=== PATIENT | female | born 1990 | race African-American/Black ===

== ENCOUNTER 2016-07-16 15:16 | Emergency (ER) | payer OTHER ==
[~2016-07-16] VITALS: Ht 167.6 cm; Wt 82.6 kg
[~2016-07-16 15:16] MED LIST: BENZ200C39 PO; GABA-585 PO; HYDR10SY8 PO; MECL12.52 PO; NAPR375T3 PO; OMEP20CA5 PO
[2016-07-16 15:55] VITALS: BP 138/90
[2016-07-16 17:23] LABS: NEG OBC UR NEG; POS OBC UR POS
[2016-07-16 18:13] LABS: BILIRUBIN,URINE NEGATIVE (NEG); GLUCOSE,URINE NEGATIVE (NEG); NITRITE,URINE NEGATIVE (NEG); PROTEIN,URINE NEGATIVE (NEG-TRACE)
[2016-07-16 18:21] LABS: BACTERIA,URINE FEW /HPF (0-FEW); RBC,URINE RARE /HPF (0-2); SQUAMOUS EPITHELIAL CELL,UR FEW /LPF; WBC,URINE OCC /HPF (0-4)
[2016-07-16] MEDS ORDERED: CEPH-264 PO (19:34)
--- NOTE | 2016-07-16 19:35 | PHYS DOC ---
Past Medical History Past Medical History: Depression, Seizure, Other Additional Past Medical Histor: THORATIC OUTLET SYNDROME SHOULDER/NECK, NEURAPATHY Past Surgical History: No Surgical History Additional Information: nonsmoker Alcohol Use: None Drug Use: None Adult General Chief Complaint Chief Complaint: VAGINAL PROBLEM HPI HPI Patient is a 25 year old female who presents with vaginal irritation for 2 days. The irritation started after using a new soap. She and her daughter both have the irritation. The patient also reports clear vaginal discharge with urinary frequency and urgency. She denies dysuria or fevers. She sees a PCP at [facility]. Review of Systems Review of Systems Constitutional: Denies fever or chills. [] GI: Denies abdominal pain, nausea, vomiting, bloody stools or diarrhea. [] : Denies dysuria, hematuria. Reports vaginal irritation, vaginal discharge, urinary frequency, and urinary urgency. Musculoskeletal: Denies back pain or joint pain. [] Integument: Denies rash or skin lesions. [] Neurologic: Denies headache, focal weakness or sensory changes. [] All systems reviewed and negative unless otherwise stated in the HPI. Allergies Allergies Allergies Coded Allergies Type Severity Reaction Last Updated Verified duloxetine Allergy Intermediate 07/01/15 No sulfamethoxazole Allergy Intermediate 07/01/15 No trimethoprim Allergy Intermediate 07/01/15 No Physical Exam Physical Exam Constitutional: Well developed, well nourished, no acute distress, non-toxic appearance. [] HENT: Normocephalic, atraumatic, oropharynx moist. [] Eyes: PERRLA, EOMI, conjunctiva normal, no discharge. [] Neck: Normal range of motion, no tenderness, supple, no stridor. [] Cardiovascular: Heart rate regular rhythm, no murmur. [] Lungs & Thorax: Bilateral breath sounds clear to auscultation without wheezes, rales, or rhonchi. [] Abdomen: Bowel sounds normal, soft, no tenderness, no masses, no pulsatile masses. 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 Normal external genitalia. There is mild irritation of the skin inside the labia minora without induration. There are no herpetic lesions. There is mild, thin, white discharge in the vagina. There is no cervicitis or CMT. There is no adnexal tenderness or mass. Skin: Warm, dry. See female . Back: No midline tenderness, no CVA tenderness. [] Extremities: No tenderness, ROM intact, no edema. Distal pulses equal bilaterally. [] Neurologic: Alert and oriented X 3, normal motor function, normal sensory function, no focal deficits noted. [] Psychologic: Affect normal, judgement normal, mood normal. [] Current Patient Data Vital Signs Vital Signs Date Time Temp Pulse Resp B/P Pulse Ox O2 Delivery O2 Flow Rate FiO2 07/16/16 15:55 98.5 101 18 97 Room Air 98.5 Lab Values Laboratory Tests Test 07/16/16 16:25 Urine Collection Type Unknown Urine Color Yellow Urine Clarity Clear Urine pH 6.0 Urine Specific [place] >=1.030 Urine Protein Negativemg/dL (NEG-TRACE) Urine Glucose (UA) Negativemg/dL (NEG) Urine Ketones (Stick) Negativemg/dL (NEG) Urine Blood Trace (NEG) Urine Nitrite Negative (NEG) Urine Bilirubin Negative (NEG) Urine Urobilinogen Dipstick 1.0mg/dL (0.2 mg/dL) Urine Leukocyte Esterase Small (NEG) Urine RBC Rare/HPF (0-2) Urine WBC Occ/HPF (0-4) Urine Squamous Epithelial Cells Few/LPF Urine Bacteria Few/HPF (0-FEW) Urine Mucus Mod/LPF Urine Test Negative (NEG) Microbiology 07/16/16 Wet Prep - Final, Complete WET PREP Final YEAST NONE SEEN TRICHOMONAS NONE SEEN CLUE CELLS NONE SEEN WBCS FEW RBCS NO RBCS SEEN SQUAMOUS EPS MODERATE EKG EKG [] Radiology/Procedures Radiology/Procedures [] Course & Med Decision Making Course & Med Decision Making Pertinent Labs and Imaging studies reviewed. (See chart for details) [] Dragon Disclaimer Dragon Disclaimer This electronic medical record was generated, in whole or in part, using a voice recognition dictation system. Departure Departure Impression: Primary Impression: UTI (urinary tract infection) Additional Impression: Vaginal irritation Disposition: 01 HOME, SELF-CARE Condition: STABLE Referrals: UNKNOWN PCP NAME (PCP) Patient Instructions: Urinary Tract Infection, [id number] Additional Instructions: Your urine shows an infection. You do not appear to have a vaginal infection. Please complete all of the prescribed antibiotics. Please stop using the new soap that caused the vaginal irritation. Please follow up with a primary care provider if your symptoms continue. Return to the emergency department if you have any new or concerning symptoms. Scripts Cephalexin (Keflex)500 Mg Capsule1 Cap PO BID #14 CAP Prov:RAPHAEL MCKEON 07/16/16 Problem Qualifiers Primary Impression: UTI (urinary tract infection) Urinary tract infection type: acute cystitis Hematuria presence: without hematuria Qualified Code: N30.00 - Acute cystitis without hematuria RAPHAEL MCKEON Jul 16, 2016 19:35
== END 2016-07-16 19:37 | disposition home or self-care (01) ==
LOC: ER 15:16
DX: N30.00 Acute cystitis without hematuria (principal); F32.9 Major depressive disorder, single episode, unspecified; G62.9 Polyneuropathy, unspecified; Z88.1 Allergy status to other antibiotic agents; Z88.8 Allergy status to other drugs, medicaments and biological substances; Z88.2 Allergy status to sulfonamides
CPT/HCPCS: 81001; 81025; 87086; 87491; 87591; 99284; Q0111

== ENCOUNTER 2016-10-13 13:37 | Emergency (ER) | payer OTHER ==
[~2016-10-13] VITALS: Ht 167.6 cm; Wt 81.6 kg
[~2016-10-13 13:37] MED LIST changes: +CEPH-264 PO
[2016-10-13 13:45] VITALS: BP 151/98
[2016-10-13] MEDS ORDERED: HYDR25TA PO (14:09)
[2016-10-13] MEDS ORDERED: KETO120S TP (14:09)
[2016-10-13] MEDS ORDERED: TRIA15OI TP (14:09)
--- NOTE | 2016-10-13 14:10 | PHYS DOC ---
Past Medical History Past Medical History: Depression, Seizure, Other Additional Past Medical Histor: THORATIC OUTLET SYNDROME SHOULDER/NECK, NEURAPATHY Past Surgical History: No Surgical History Alcohol Use: None Drug Use: None Adult General Chief Complaint Chief Complaint: ITCHING HPI HPI Patient is a 26 year old female with history of depression who presents with itching. Patient states she has been itching her entire body for the last couple days. She states she's been itching her scalp for months. She states she was informed she has dandruff. She states she has tried [id number] head and shoulders with no relief. 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 Review of Systems Review of Systems Constitutional: Denies fever or chills [] Eyes: Denies change in visual acuity, redness, or eye pain [] Musculoskeletal: Denies back pain or joint pain [] Integument: Itching to the scalp, itching to the entire body Neurologic: Denies headache, focal weakness or sensory changes [] Endocrine: Denies polyuria or polydipsia [] Allergies Allergies Allergies Coded Allergies Type Severity Reaction Last Updated Verified duloxetine Allergy Intermediate 07/01/15 No sulfamethoxazole Allergy Intermediate 07/01/15 No trimethoprim Allergy Intermediate 07/01/15 No Physical Exam Physical Exam Constitutional: Well developed, well nourished, no acute distress, non-toxic appearance. [] HENT: Normocephalic, atraumatic, bilateral external ears normal, oropharynx moist, no oral exudates, nose normal. [] Eyes: PERRLA, EOMI, conjunctiva normal, no discharge. [] Abdomen: Bowel sounds normal, soft, no tenderness, no masses, no pulsatile masses. [] Skin: Dandruffs scattered throughout the scalp. Back: No tenderness, no CVA tenderness. [] Extremities: No tenderness, no cyanosis, no clubbing, ROM intact, no edema. [] Neurologic: Alert and oriented X 3, normal motor function, normal sensory function, no focal deficits noted. [] Psychologic: Affect normal, judgement normal, mood normal. [] EKG EKG [] Radiology/Procedures Radiology/Procedures [] Course & Med Decision Making Course & Med Decision Making Pertinent Labs and Imaging studies reviewed. (See chart for details) Patient is seborrhoic dermatitis to her scalp and itching throughout her body. She was discharged with Atarax, ketoconazole shampoo, and triamcinolone cream. Provided a dynamo tender for follow-up. Ronald Disclaimer Ronald Disclaimer This electronic medical record was generated, in whole or in part, using a voice recognition dictation system. Departure Departure Impression: Primary Impression: Seborrheic dermatitis of scalp Additional Impression: Itching Disposition: HOME, SELF-CARE Condition: STABLE Referrals: UNKNOWN PCP NAME (PCP) SARAH TURK MD Follow-up with the provided dynamo tender in 2 weeks Patient Instructions: Itching-Brief, Seborrheic Dermatitis Additional Instructions: You were seen for dandruff and itching throughout your body. Please use the prescribed medicines as ordered. Follow-up with the provided dynamo tender in 1 -2 weeks. Scripts Hydroxyzine Hcl 25 Mg Tablet1 Tab PO TID #60 TAB Ref 1 Prov:KRIS ARREOLA APRN 10/13/16 Triamcinolone Acetonide (Triamcinolone Acetonide 0.1% Oint)15 Gm Oint...g.1 Yessenia TP BID WOUND CARE #1 TUBE MIX WITH EUCERIN DIRECTED BY PHYSICIAN Prov:KRIS ARREOLA APRN 10/13/16 Ketoconazole 120 Ml Shampoo1 Yessenia TP TWICE WEEKLY #120 ML Ref 3 Prov:KRIS ARREOLA APRN 10/13/16 Problem Qualifiers KRIS ARREOLA APRN Oct 13, 2016 14:10
== END 2016-10-13 14:15 | disposition home or self-care (01) ==
LOC: ER 13:37
DX: L21.8 Other seborrheic dermatitis (principal); L29.9 Pruritus, unspecified; F32.9 Major depressive disorder, single episode, unspecified; G62.9 Polyneuropathy, unspecified; Z88.1 Allergy status to other antibiotic agents; Z88.8 Allergy status to other drugs, medicaments and biological substances
CPT/HCPCS: 99283

== ENCOUNTER 2016-12-30 10:10 | Emergency (ER) | payer SELFPAY ==
[~2016-12-30] VITALS: Ht 167.6 cm; Wt 90.7 kg
[~2016-12-30 10:10] MED LIST changes: -BENZ200C39 PO; +BENZ200C47 PO; +HYDR10SY16 PO; -HYDR10SY8 PO; +HYDR25TA PO; +KETO120S TP; +TRIA15OI TP
[2016-12-30] MEDS ORDERED: BENZONATATE 100 MG CAPSULE. PO ONE (11:00)
[2016-12-30] MEDS ORDERED: IPRATRPIUM/ALBUTEROL 0.5/2.5MG 3 ML NEBU. NEB ONE (11:00)
[2016-12-30] MEDS ORDERED: ONDANSETRON PF 4 MG/2 ML VIAL. IV ONE (11:00)
[2016-12-30] MEDS ORDERED: ASPIRIN 325 MG TABLET PO ONE (11:00)
[2016-12-30] MEDS ORDERED: predniSONE 20 MG TABLET PO ONE (11:00)
--- NOTE | 2016-12-30 11:08 | EKG ---
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
[2016-12-30 11:09] LABS: BILIRUBIN,URINE NEGATIVE (NEG); GLUCOSE,URINE NEGATIVE (NEG); NITRITE,URINE NEGATIVE (NEG); PH,URINE 7.5; PROTEIN,URINE NEGATIVE (NEG-TRACE)
--- NOTE | 2016-12-30 11:10 | RAD ---
AP chest. History: Chest pain, trouble breathing, cough AP view was taken of the chest. Lungs are clear. Heart is normal in size without heart failure. There is no effusion. Impression: 1. No acute chest disease.
[2016-12-30 11:11] LABS: BASO # 0.1 x10^3/uL (0.0-0.2); BASO % 1 % (0-3); EOS % 2 % (0-3); HEMATOCRIT 38.9 % (36.0-47.0); HEMOGLOBIN 13.2 g/dL (12.0-15.5); LYMPH % 30 % (24-48); MEAN CORPUSCULAR HEMOGLOBIN 30 pg (25-35); MEAN CORPUSCULAR HGB CONC 34 g/dL (31-37); MEAN CORPUSCULAR VOLUME 88 fL (79-100); MONO % 5 % (0-9); NEUT % 62 % (31-73); PLATELET COUNT 304 x10^3/uL (140-400); RED BLOOD COUNT 4.42 x10^6/uL (3.50-5.40); RED CELL DISTRIBUTION WIDTH 13.8 % (11.5-14.5); WHITE BLOOD COUNT 9.8 x10^3/uL (4.0-11.0)
[2016-12-30 11:12] LABS: CREATININE 0.8 mg/dL (0.6-1.0); GFR 103.3; POTASSIUM 3.9 mmol/L (3.5-5.1)
[2016-12-30 11:16] LABS: BARBITURATES NEG (NEG); BENZODIAZEPINES NEG (NEG); CANNABINOIDS NEG (NEG); COCAINE NEG (NEG); METHADONE NEG (NEG); OPIATES NEG (NEG); PHENCYCLIDINE NEG (NEG)
[2016-12-30 11:18] LABS: ALBUMIN 3.9 g/dL (3.4-5.0); ALBUMIN/GLOBULIN RATIO 1.1 (1.0-1.7); TOTAL BILIRUBIN 0.6 mg/dL (0.2-1.0); TOTAL PROTEIN 7.6 g/dL (6.4-8.2)
--- NOTE | 2016-12-30 11:22 | PHYS DOC ---
Past Medical History Past Medical History: Depression, Seizure, Other Additional Past Medical Histor: THORATIC OUTLET SYNDROME SHOULDER/NECK, NEURAPATHY Past Surgical History: Other Additional Past Surgical Histo: "bladder surgery"-"lift" Alcohol Use: None Drug Use: None Adult General Chief Complaint Chief Complaint: SHORTNESS OF BREATH HPI HPI Patient is a 26 year old female with history of depression, who presents today with multiple complaints. Patient is complaining of productive cough with SOB intermittently for the last 1 month. Patient is also complaining of generalized anterior chest pain 6/10 radiating to bilateral jaws that has been going on intermittently for a month. Patient states the cough exacerbates the chest pain. Patient denies any fever. Denies any history of asthma. Denies any history of smoking. Denies any recent hospitalization. She states she has an Implanon for control. She states she has been diagnosed with the vertigo by the PCP one month ago. Denies any dizziness. Denies any nausea vomiting. Denies any abdominal pain. Review of Systems Review of Systems Constitutional: Denies fever or chills [] Eyes: Denies change in visual acuity, redness, or eye pain [] HENT: Denies nasal congestion or sore throat [] Respiratory: cough and shortness of breath [] Cardiovascular: anterior chest pain GI: Denies abdominal pain, nausea, vomiting, bloody stools or diarrhea [] : Denies dysuria or hematuria [] Musculoskeletal: Denies back pain or joint pain [] Integument: Denies rash or skin lesions [] Neurologic: Denies headache, focal weakness or sensory changes [] Endocrine: Denies polyuria or polydipsia [] Current Medications Current Medications Current Medications Medications (Trade) Dose Ordered Sig/Hector Start Time Stop Time Status Last Admin Dose Admin Albuterol/ Ipratropium (Duoneb) 3 ml 1X ONCE 12/30/16 11:00 12/30/16 11:01 DC 12/30/16 11:10 3 ML Aspirin (Waqar Aspirin) 325 mg 1X ONCE 12/30/16 11:00 12/30/16 11:01 DC 12/30/16 11:07 325 MG Benzonatate (Tessalon Perle) 100 mg 1X ONCE 12/30/16 11:00 12/30/16 11:01 DC 12/30/16 11:06 100 MG Info (Do NOT chart on this entry -- for MONITORING) 1 each PRN DAILY PRN 12/30/16 12:45 01/01/17 12:44 Iohexol (Omnipaque 300 Mg/ml) 75 ml 1X ONCE 12/30/16 12:45 12/30/16 12:46 DC 12/30/16 12:44 75 ML Ondansetron HCl (Zofran) 4 mg 1X ONCE 12/30/16 11:00 12/30/16 11:01 DC 12/30/16 11:07 4 MG Prednisone (Prednisone) 60 mg 1X ONCE 12/30/16 11:00 12/30/16 11:01 DC 12/30/16 11:07 60 MG Allergies Allergies Allergies Coded Allergies Type Severity Reaction Last Updated Verified duloxetine Allergy Intermediate 07/01/15 No sulfamethoxazole Allergy Intermediate 07/01/15 No trimethoprim Allergy Intermediate 07/01/15 No Physical Exam Physical Exam Constitutional: Well developed, well nourished, no acute distress, non-toxic appearance. [] HENT: Normocephalic, atraumatic, bilateral external ears normal, oropharynx moist, no oral exudates, nose normal. [] Eyes: PERRLA, EOMI, conjunctiva normal, no discharge. [] Neck: Normal range of motion, no tenderness, supple, no stridor. [] Cardiovascular:Heart rate regular rhythm, no murmur [] Lungs & Thorax: Bilateral breath sounds clear to auscultation [] Abdomen: Bowel sounds normal, soft, no tenderness, no masses, no pulsatile masses. [] Skin: Warm, dry, no erythema, no rash. [] Back: No tenderness, no CVA tenderness. [] Extremities: No tenderness, no cyanosis, no clubbing, ROM intact, no edema. [] Neurologic: Alert and oriented X 3, normal motor function, normal sensory function, no focal deficits noted. [] Psychologic: Affect normal, judgement normal, mood normal. [] Current Patient Data Vital Signs Vital Signs Date Time Temp Pulse Resp B/P (MAP) Pulse Ox O2 Delivery O2 Flow Rate FiO2 12/30/16 12:04 88 21 120/62 (81) 99 Room Air 12/30/16 10:14 98.5 98.5 Lab Values Laboratory Tests Test 12/30/16 09:50 12/30/16 10:40 12/30/16 10:45 POC Urine HCG, Qualitative Hcg negative (Negative) White Blood Count 9.8 x10^3/uL (4.0-11.0) Red Blood Count 4.42 x10^6/uL (3.50-5.40) Hemoglobin 13.2 g/dL (12.0-15.5) Hematocrit 38.9 % (36.0-47.0) Mean Corpuscular Volume 88 fL (79-100) Mean Corpuscular Hemoglobin 30 pg (25-35) Mean Corpuscular Hemoglobin Concent 34 g/dL (31-37) Red Cell Distribution Width 13.8 % (11.5-14.5) Platelet Count 304 x10^3/uL (140-400) Neutrophils (%) (Auto) 62 % (31-73) Lymphocytes (%) (Auto) 30 % (24-48) Monocytes (%) (Auto) 5 % (0-9) Eosinophils (%) (Auto) 2 % (0-3) Basophils (%) (Auto) 1 % (0-3) Neutrophils # (Auto) 6.1 x10^3uL (1.8-7.7) Lymphocytes # (Auto) 3.0 x10^3/uL (1.0-4.8) Monocytes # (Auto) 0.4 x10^3/uL (0.0-1.1) Eosinophils # (Auto) 0.2 x10^3/uL (0.0-0.7) Basophils # (Auto) 0.1 x10^3/uL (0.0-0.2) Prothrombin Time 13.6 SEC (11.7-14.0) Prothrombin Time INR 1.1 (0.8-1.1) D-Dimer (Sanat) 2.16 ug/mlFEU (0.00-0.50) H Sodium Level 142 mmol/L (136-145) Potassium Level 3.9 mmol/L (3.5-5.1) Chloride Level 105 mmol/L (98-107) Carbon Dioxide Level 27 mmol/L (21-32) Anion Gap 10 (6-14) Blood Urea Nitrogen 11 mg/dL (7-20) Creatinine 0.8 mg/dL (0.6-1.0) Estimated GFR (Cockcroft-Gault) 103.3 BUN/Creatinine Ratio 14 (6-20) Glucose Level 106 mg/dL (70-99) H Calcium Level 9.0 mg/dL (8.5-10.1) Magnesium Level 2.0 mg/dL (1.8-2.4) Total Bilirubin 0.6 mg/dL (0.2-1.0) Aspartate Amino Transferase (AST) 10 U/L (15-37) L Alanine Aminotransferase (ALT) 11 U/L (14-59) L Alkaline Phosphatase 75 U/L (46-116) Creatine Kinase 74 U/L (26-192) Creatine Kinase MB (Mass) < 0.5 ng/mL (0.0-3.6) Creatine Kinase MB Relative Index % (0-4) Troponin I Quantitative < 0.017 ng/mL (0.000-0.055) KR-Aua-U-Type Natriuretic Peptide 35 pg/mL (0-124) Total Protein 7.6 g/dL (6.4-8.2) Albumin 3.9 g/dL (3.4-5.0) Albumin/Globulin Ratio 1.1 (1.0-1.7) Lipase 187 U/L (73-393) Thyroid Stimulating Hormone (TSH) 0.593 uIU/mL (0.358-3.74) Urine Collection Type Void Urine Color Yellow Urine Clarity Clear Urine pH 7.5 Urine Specific [address] 1.020 Urine Protein Negative mg/dL (NEG-TRACE) Urine Glucose (UA) Negative mg/dL (NEG) Urine Ketones (Stick) Negative mg/dL (NEG) Urine Blood Negative (NEG) Urine Nitrite Negative (NEG) Urine Bilirubin Negative (NEG) Urine Urobilinogen Dipstick 1.0 mg/dL (0.2 mg/dL) Urine Leukocyte Esterase Moderate (NEG) Urine RBC 0 /HPF (0-2) Urine WBC 1-4 /HPF (0-4) Urine Squamous Epithelial Cells Many /LPF Urine Bacteria Few /HPF (0-FEW) Urine Mucus Mod /LPF Urine Opiates Screen Neg (NEG) Urine Methadone Screen Neg (NEG) Urine Barbiturates Neg (NEG) Urine Phencyclidine Screen Neg (NEG) Urine Amphetamine/Methamphetamine Neg (NEG) Urine Benzodiazepines Screen Neg (NEG) Urine Cocaine Screen Neg (NEG) Urine Cannabinoids Screen Neg (NEG) Urine Ethyl Alcohol Neg (NEG) Laboratory Tests 12/30/16 10:40 Laboratory Tests 12/30/16 10:40 EKG EKG []10:[address] Patel sinus rhythm heart rate 92, QRS interval 80, no STEMI. Radiology/Procedures Radiology/Procedures []PROCEDURE: PORTABLE CHEST 1V AP chest. History: Chest pain, trouble breathing, cough AP view was taken of the chest. Lungs are clear. Heart is normal in size without heart failure. There is no effusion. Impression: 1. No acute chest disease. DICTATED and SIGNED BY: NADJA CARR MD DATE: 12/30/16 1107 CC: KRIS ARREOLA APRN; UNKNOWN PCP NAME ~ PROCEDURE: CT ANGIOGRAPHY CHEST CT arteriogram of the chest. History: Short of air with elevated d-dimer, chest pain CT arteriogram of the chest was done using 75 mL Omnipaque 300 contrast. Visualized portions of the liver and spleen are normal. Adrenal glands are normal. There is no pleural effusion. There is no mediastinal adenopathy. Contrast enhancement is not optimal, a pulmonary embolus is not identified. Lungs are free of infiltrates or nodules. Coronal and sagittal MIP images were reconstructed. Impression: 1. No infiltrates noted. 2. Negative for a pulmonary embolus. One or more of the following individualized dose reduction techniques were utilized for this examination: 1. Automated exposure control 2. Adjustment of the mA and/or kV according to patient size 3. Use of iterative reconstruction technique DICTATED and SIGNED BY: NADJA CARR MD DATE: 12/30/16 1310 CC: KRIS ARREOLA APRN; UNKNOWN PCP NAME ~ Course & Med Decision Making Course & Med Decision Making Pertinent Labs and Imaging studies reviewed. (See chart for details) This is a 26 year old female patient who presents to the ED today with multiple complaints including coughing for 1 month, anterior chest pain, shortness of breath, bilateral jaw pain. She does have a risk factor for PE including the use of hormonal control. 10:[address] Patel sinus rhythm heart rate 92, QRS interval 80 , no STEMI. Chest x-ray interpreted by radiologist as negative for any acute findings. CBC CMP lipase with no acute findings. D-dimer was 2.16. CTA chest was obtained which was negative for any acute findings. Urine positive for UTI. Discharged with cephalexin. Patient's symptoms are likely acute bronchitis. Discharged with albuterol inhaler, prednisone and Tessalon Perles. Recommended following up with the primary care doctor in the next 7 days. Ronald Disclaimer Ronald Disclaimer This electronic medical record was generated, in whole or in part, using a voice recognition dictation system. Departure Departure Impression: Primary Impression: UTI (urinary tract infection) Additional Impression: Acute bronchitis Disposition: 01 HOME, SELF-CARE Condition: STABLE Referrals: UNKNOWN PCP NAME (PCP) Follow-up with your doctor in one week Patient Instructions: Acute Bronchitis, [id number], Urinary Tract Infection Additional Instructions: You seen with symptoms consistent of bronchitis, you also tested for urinary tract infection. Use the prescribed medicines as ordered ensuring you complete your antibiotics. Follow-up with your doctor in 1-2 weeks. Come back to the ED if symptoms worsen. Scripts Cephalexin (CEPHALEXIN) 500 Mg Tablet 1 TAB PO BID, #14 TAB Prov: KRIS ARREOLA APRN 12/30/16 Prednisone (PREDNISONE) 50 Mg Tablet 1 TAB PO DAILY, #4 TAB Prov: KRIS ARREOLA APRN 12/30/16 Benzonatate (TESSALON PERLE) 100 Mg Capsule 1 CAP PO TID, #30 CAP Prov: KRIS ARREOLA APRN 12/30/16 Albuterol Sulfate (Proair Respiclick) 90 Mcg Aer.pow.ba 1 PUFF IH PRN Q6HRS Y for SHORTNESS OF BREATH, #1 INHALER Prov: KRIS ARREOLA APRN 12/30/16 Problem Qualifiers Primary Impression: UTI (urinary tract infection) Urinary tract infection type: site unspecified Hematuria presence: without hematuria Qualified Codes: N39.0 - Urinary tract infection, site not specified Additional Impression: Acute bronchitis Bronchitis organism: unspecified organism Qualified Codes: J20.9 - Acute bronchitis, unspecified KRIS ARREOLA APRN Dec 30, 2016 11:21
[2016-12-30 11:27] LABS: CKMB MASS < 0.5 ng/mL (0.0-3.6); CREATINE KINASE 74 U/L (26-192)
[2016-12-30 11:31] LABS: BACTERIA,URINE FEW /HPF (0-FEW); RBC,URINE 0 /HPF (0-2); SQUAMOUS EPITHELIAL CELL,UR MANY /LPF
[2016-12-30 11:37] LABS: INR 1.1 (0.8-1.1); PROTHROMBIN TIME PATIENT 13.6 SEC (11.7-14.0)
[2016-12-30 12:04] VITALS: BP 120/62
[2016-12-30] MEDS ORDERED: CONTRAST GIVEN MC PRN (12:45)
[2016-12-30] MEDS ORDERED: IOHEXOL 300 MG/ML 75 ML VIAL IV ONE (12:45)
--- NOTE | 2016-12-30 13:16 | RAD ---
CT arteriogram of the chest. History: Short of air with elevated d-dimer, chest pain CT arteriogram of the chest was done using 75 mL Omnipaque 300 contrast. Visualized portions of the liver and spleen are normal. Adrenal glands are normal. There is no pleural effusion. There is no mediastinal adenopathy. Contrast enhancement is not optimal, a pulmonary embolus is not identified. Lungs are free of infiltrates or nodules. Coronal and sagittal MIP images were reconstructed. Impression: 1. No infiltrates noted. 2. Negative for a pulmonary embolus. One or more of the following individualized dose reduction techniques were utilized for this examination: 1. Automated exposure control 2. Adjustment of the mA and/or kV according to patient size 3. Use of iterative reconstruction technique
[2016-12-30] MEDS ORDERED: PROAIR RESPICL90 MCG IH (13:33)
[2016-12-30] MEDS ORDERED: BENZ100C PO (13:33)
[2016-12-30] MEDS ORDERED: CEPH500T PO (13:33)
[2016-12-30] MEDS ORDERED: PRED50TA PO (13:33)
== END 2016-12-30 13:45 | disposition home or self-care (01) ==
LOC: ER 10:10
DX: J20.9 Acute bronchitis, unspecified (principal); N39.0 Urinary tract infection, site not specified; R68.84 Jaw pain; F32.9 Major depressive disorder, single episode, unspecified; Z88.1 Allergy status to other antibiotic agents; Z88.2 Allergy status to sulfonamides; Z88.8 Allergy status to other drugs, medicaments and biological substances
CPT/HCPCS: 36415; 71010; 71275; 80053; 80305; 80320; 81001; 81025; 82553; 83690; 83735; 83880; 84443; 84484; 85027; 85379; 85610; 93005; 94250; 94640; 96374; 99285; J2405; J7512; J7620; Q9967; G0481

== ENCOUNTER 2017-01-30 18:43 | Emergency (ER) | payer OTHER ==
[~2017-01-30] VITALS: Ht 162.6 cm; Wt 122.5 kg
[~2017-01-30 18:43] MED LIST changes: +BENZ100C PO; +CEPH500T PO; +PRED50TA PO; +PROAIR RESPICL90 MCG IH
[2017-01-30 18:55] VITALS: BP 131/75
[2017-01-30] MEDS ORDERED: ALBUTEROL SULFATE 2.5 MG/3 ML NEBU. NEB ONE (19:30)
--- NOTE | 2017-01-30 19:34 | PHYS DOC ---
Past Medical History Past Medical History: Asthma, Depression, Seizure, Other Additional Past Medical Histor: THORATIC OUTLET SYNDROME SHOULDER/NECK, NEURAPATHY Past Surgical History: Other Additional Past Surgical Histo: "bladder surgery"-"lift" Alcohol Use: None Drug Use: None Adult General Chief Complaint Chief Complaint: BREAST PROBLEM HPI HPI Patient is a 26 year old female presents to the emergency department stating that she has having left breast numbness burning and tingling. She states she's had this in the past however this habits more constant. Patient states that she' s been having a nonproductive cough with nausea. Patient denies any possibility of being as her last menstrual period was earlier this month. Patient does state that she's had some urinary burning and frequency. Patient denies any fever, chills she denies any vaginal discharge. Review of Systems Review of Systems Constitutional: Denies fever or chills [] Eyes: Denies change in visual acuity, redness, or eye pain [] HENT: Denies nasal congestion or sore throat [] Respiratory: Denies cough or shortness of breath [] Cardiovascular: No additional information not addressed in HPI [] GI: Denies abdominal pain, vomiting, bloody stools or diarrhea. C/o nausea : dysuria denies hematuria [] Musculoskeletal: Denies back pain or joint pain [] Integument: Denies rash or skin lesions [] Neurologic: Denies headache, focal weakness or sensory changes [] Endocrine: Denies polyuria or polydipsia [] Current Medications Current Medications Current Medications Medications (Trade) Dose Ordered Sig/Hector Start Time Stop Time Status Last Admin Dose Admin Albuterol Sulfate (Ventolin Neb Soln) 2.5 mg 1X ONCE 01/30/17 19:30 01/30/17 19:31 DC Allergies Allergies Allergies Coded Allergies Type Severity Reaction Last Updated Verified duloxetine Allergy Intermediate 07/01/15 No sulfamethoxazole Allergy Intermediate 07/01/15 No trimethoprim Allergy Intermediate 07/01/15 No Physical Exam Physical Exam Constitutional: Well developed, well nourished, no acute distress, non-toxic appearance. [] HENT: Normocephalic, atraumatic, bilateral external ears normal, oropharynx moist, no oral exudates, nose normal. Bilateral tympanic membranes appear to be normal. Eyes: PERRLA, EOMI, conjunctiva normal, no discharge. [] Neck: Normal range of motion, no tenderness, supple, no stridor. [] Cardiovascular:Heart rate regular rhythm, no murmur [] Lungs & Thorax: Bilateral breath sounds clear to auscultation. Patient was noted to have a nonproductive cough Skin: Warm, dry, no erythema, no rash. Left breast with tenderness and redness noted around the 10 to 12:00 area. No drainage or discharge coming from the breast tissue. Back: No tenderness Extremities: No tenderness, no cyanosis, no clubbing, ROM intact, no edema. [] Neurologic: Alert and oriented X 3, normal motor function, normal sensory function, no focal deficits noted. [] Psychologic: Affect normal, judgement normal, mood normal. [] Current Patient Data Vital Signs Vital Signs Date Time Temp Pulse Resp B/P (MAP) Pulse Ox O2 Delivery O2 Flow Rate FiO2 01/30/17 19:45 100 Room Air 01/30/17 18:55 98.3 80 18 98.3 Lab Values Laboratory Tests Test 01/30/17 18:49 01/30/17 19:34 POC Urine HCG, Qualitative Hcg negative (Negative) Urine Collection Type Unknown Urine Color Yellow Urine Clarity Cloudy Urine pH 6.5 Urine Specific [place] >=1.030 Urine Protein Negative mg/dL (NEG-TRACE) Urine Glucose (UA) Negative mg/dL (NEG) Urine Ketones (Stick) Negative mg/dL (NEG) Urine Blood Negative (NEG) Urine Nitrite Negative (NEG) Urine Bilirubin Negative (NEG) Urine Urobilinogen Dipstick 1.0 mg/dL (0.2 mg/dL) Urine Leukocyte Esterase Negative (NEG) Urine RBC Occ /HPF (0-2) Urine WBC 1-4 /HPF (0-4) Urine Squamous Epithelial Cells Mod /LPF Urine Bacteria Few /HPF (0-FEW) Urine Mucus Slight /LPF EKG EKG [] Radiology/Procedures Radiology/Procedures [] Course & Med Decision Making Course & Med Decision Making Pertinent Labs and Imaging studies reviewed. (See chart for details) Patient was provided with an albuterol treatment here in the emergency department. She states that she is has less burning sensation in her chest however she still has the burning sensation in the breast area. Patient will be discharged home with Provera, prednisone, and Keflex. She'll be encouraged to follow-up with her primary care physician in the next week. Signs and symptoms to return back to emergency department as been provided. Patient agrees with discharge instructions, treatment regimens and follow-up recommendations. All questions and concerns have been answered for the patient at the bedside. [] Dragon Disclaimer Dragon Disclaimer This electronic medical record was generated, in whole or in part, using a voice recognition dictation system. Departure Departure Impression: Primary Impression: Acute bronchitis Additional Impression: Cellulitis of left breast Disposition: HOME, SELF-CARE Condition: STABLE Referrals: UNKNOWN PCP NAME (PCP) Patient Instructions: Acute Bronchitis, [id number] Additional Instructions: Activity as tolerated. Medication as prescribed. Tylenol or ibuprofen for pain and discomfort. Warm moist packs to the left breast area. Follow-up the primary care physician in the next week. Return back to emergency department for signs and symptoms of become worse. Scripts Albuterol Sulfate (PROAIR HFA INHALER) 8.5 Gm Hfa.aer.ad 1 PUFF INH PRN Q6HRS Y for SHORTNESS OF BREATH, #1 INHALER 0 Refills Prov: ALON DUARTE APRN 01/30/17 Prednisone (PREDNISONE) 20 Mg Tablet 40 MG PO DAILY, #14 TAB Prov: ALON DUARTE APRN 01/30/17 Cephalexin (CEPHALEXIN) 500 Mg Tablet 1 TAB PO BID, #20 TAB Prov: ALON DUARTE APRN 01/30/17 Problem Qualifiers ALON DUARTE APRN Jan 30, 2017 19:34
[2017-01-30 19:40] LABS: BILIRUBIN,URINE NEGATIVE (NEG); GLUCOSE,URINE NEGATIVE (NEG); NITRITE,URINE NEGATIVE (NEG); PH,URINE 6.5; PROTEIN,URINE NEGATIVE (NEG-TRACE)
[2017-01-30 19:48] LABS: RBC,URINE OCC /HPF (0-2)
[2017-01-30 19:49] LABS: BACTERIA,URINE FEW /HPF (0-FEW); SQUAMOUS EPITHELIAL CELL,UR MOD /LPF
[2017-01-30] MEDS ORDERED: PRED20TA PO (20:06)
[2017-01-30] MEDS ORDERED: PROAIR HFA8.5 GM INH (20:06)
[2017-01-30] MEDS ORDERED: CEPH500T PO (20:06)
== END 2017-01-30 20:08 | disposition home or self-care (01) ==
LOC: ER 18:43
DX: N61.0 Mastitis without abscess (principal); J20.9 Acute bronchitis, unspecified; R20.0 Anesthesia of skin; Z88.2 Allergy status to sulfonamides; Z88.8 Allergy status to other drugs, medicaments and biological substances; J45.909 Unspecified asthma, uncomplicated
CPT/HCPCS: 81001; 81025; 94640; 99283-25

== ENCOUNTER 2017-02-06 11:13 | Observation (INO) | payer OTHER ==
[~2017-02-06] VITALS: Ht 162.6 cm; Wt 108.0 kg
[~2017-02-06 11:13] MED LIST changes: +PRED20TA PO; +PROAIR HFA8.5 GM INH
--- NOTE | 2017-02-06 11:43 | PHYS DOC ---
Past Medical History Past Medical History: Asthma, Depression, Seizure, Other Additional Past Medical Histor: THORATIC OUTLET SYNDROME SHOULDER/NECK, NEURAPATHY Past Surgical History: Other Additional Past Surgical Histo: "bladder surgery"-"lift" Alcohol Use: None Drug Use: None Adult General Chief Complaint Chief Complaint: ASTHMA HPI HPI Patient is a 26 year old female presents to the emergency department by EMS with C/o SOA and wheezing. Patient had 2 treatment while en route to the emergency department. Patient states she has been treated for bronchitis. Patient also states her doctor states she has come type of lung or heart problems. Patient denies fever, chills or nausea and vomiting. Review of Systems Review of Systems Constitutional: Denies fever or chills [] Eyes: Denies change in visual acuity, redness, or eye pain [] HENT: Denies nasal congestion or sore throat [] Respiratory: Denies cough C/o shortness of breath and wheezing [] Cardiovascular: No additional information not addressed in HPI [] GI: Denies abdominal pain, nausea, vomiting, bloody stools or diarrhea [] : Denies dysuria or hematuria [] Musculoskeletal: Denies back pain or joint pain [] Integument: Denies rash or skin lesions [] Neurologic: Denies headache, focal weakness or sensory changes [] Endocrine: Denies polyuria or polydipsia [] Current Medications Current Medications Current Medications Medications (Trade) Dose Ordered Sig/Hector Start Time Stop Time Status Last Admin Dose Admin Albuterol Sulfate (Ventolin Neb Soln) 2.5 mg PRN Q6HRS PRN 02/06/17 16:00 Info (Do NOT chart on this entry -- for MONITORING) 1 each PRN DAILY PRN 02/06/17 14:15 02/08/17 14:14 Iohexol (Omnipaque 300 Mg/ml) 75 ml 1X ONCE 02/06/17 14:15 02/06/17 14:16 DC 02/06/17 14:46 75 ML Potassium Chloride (Klor-Con) 40 meq 1X ONCE 02/06/17 13:30 02/06/17 13:31 DC 02/06/17 13:48 40 MEQ Allergies Allergies Allergies Coded Allergies Type Severity Reaction Last Updated Verified duloxetine Allergy Intermediate 07/01/15 No sulfamethoxazole Allergy Intermediate 07/01/15 No trimethoprim Allergy Intermediate 07/01/15 No Physical Exam Physical Exam Constitutional: Well developed, well nourished, no acute distress, non-toxic appearance. [] HENT: Normocephalic, atraumatic, bilateral external ears normal, oropharynx moist, no oral exudates, nose normal. [] Eyes: PERRLA, EOMI, conjunctiva normal, no discharge. [] Neck: Normal range of motion, no tenderness, supple, no stridor. [] Cardiovascular:Heart rate regular rhythm, no murmur [] Lungs & Thorax: Bilateral breath sounds clear to auscultation [] Skin: Warm, dry, no erythema, no rash. [] Back: No tenderness Extremities: No tenderness, no cyanosis, no clubbing, ROM intact, no edema. [] Neurologic: Alert and oriented X 3, normal motor function, normal sensory function, no focal deficits noted. [] Psychologic: Affect normal, judgement normal, mood normal. [] Current Patient Data Vital Signs Vital Signs Date Time Temp Pulse Resp B/P (MAP) Pulse Ox O2 Delivery O2 Flow Rate FiO2 02/06/17 12:30 97.7 100 16 133/66 (88) 100 Room Air 97.7 Lab Values Laboratory Tests Test 02/06/17 12:01 02/06/17 12:30 02/06/17 13:25 POC Urine HCG, Qualitative Hcg negative (Negative) White Blood Count 10.7 x10^3/uL (4.0-11.0) Red Blood Count 4.47 x10^6/uL (3.50-5.40) Hemoglobin 13.0 g/dL (12.0-15.5) Hematocrit 39.6 % (36.0-47.0) Mean Corpuscular Volume 89 fL (79-100) Mean Corpuscular Hemoglobin 29 pg (25-35) Mean Corpuscular Hemoglobin Concent 33 g/dL (31-37) Red Cell Distribution Width 13.9 % (11.5-14.5) Platelet Count 306 x10^3/uL (140-400) Neutrophils (%) (Auto) 65 % (31-73) Lymphocytes (%) (Auto) 28 % (24-48) Monocytes (%) (Auto) 6 % (0-9) Eosinophils (%) (Auto) 1 % (0-3) Basophils (%) (Auto) 1 % (0-3) Neutrophils # (Auto) 7.0 x10^3uL (1.8-7.7) Lymphocytes # (Auto) 3.0 x10^3/uL (1.0-4.8) Monocytes # (Auto) 0.6 x10^3/uL (0.0-1.1) Eosinophils # (Auto) 0.1 x10^3/uL (0.0-0.7) Basophils # (Auto) 0.1 x10^3/uL (0.0-0.2) Sodium Level 139 mmol/L (136-145) Potassium Level 2.8 mmol/L (3.5-5.1) *L Chloride Level 102 mmol/L (98-107) Carbon Dioxide Level 22 mmol/L (21-32) Anion Gap 15 (6-14) H Blood Urea Nitrogen 11 mg/dL (7-20) Creatinine 0.8 mg/dL (0.6-1.0) Estimated GFR (Cockcroft-Gault) 103.3 BUN/Creatinine Ratio 14 (6-20) Glucose Level 92 mg/dL (70-99) Calcium Level 9.7 mg/dL (8.5-10.1) Total Bilirubin 0.8 mg/dL (0.2-1.0) Aspartate Amino Transferase (AST) 8 U/L (15-37) L Alanine Aminotransferase (ALT) 6 U/L (14-59) L Alkaline Phosphatase 71 U/L (46-116) Total Protein 7.8 g/dL (6.4-8.2) Albumin 4.0 g/dL (3.4-5.0) Albumin/Globulin Ratio 1.1 (1.0-1.7) D-Dimer (Santa) 1.66 ug/mlFEU (0.00-0.50) H Laboratory Tests 02/06/17 12:30 Laboratory Tests 02/06/17 12:30 EKG EKG Heart rate was 68 sinus rhythm noted no ectopy noted no STEMI per Dr. Grissom. [] Radiology/Procedures Radiology/Procedures [] Course & Med Decision Making Course & Med Decision Making Pertinent Labs and Imaging studies reviewed. (See chart for details) Patient has been provided with 2 respiratory treatments prior to arrival EMS. Patient continued to have wheezing noted in the throat and area. No wheezing noted in the chest area. Labs were obtained with a potassium of 2.8 she was provided with 40 mEq of potassium by mouth. CBC came back normal, d-dimer came back positive at 1.66. CTA was performed of the chest with no PE noted. Patient was admitted into the hospital via observation by Dr. Norton. Orders have been written for the patient for observation status. [] Dragon Disclaimer Dragon Disclaimer This electronic medical record was generated, in whole or in part, using a voice recognition dictation system. Departure Departure Impression: Primary Impression: Hypokalemia Additional Impression: Wheezing Disposition: ADMITTED INPATIENT Admitting Physician: Astrid Norton Condition: STABLE Referrals: UNKNOWN PCP NAME (PCP) Problem Qualifiers ALON DUARTE [employer] INSPECT[employer] HEADING Feb 06, 2017 11:43
[2017-02-06 12:37] LABS: BASO # 0.1 x10^3/uL (0.0-0.2); BASO % 1 % (0-3); EOS % 1 % (0-3); HEMATOCRIT 39.6 % (36.0-47.0); LYMPH % 28 % (24-48); MEAN CORPUSCULAR HEMOGLOBIN 29 pg (25-35); MEAN CORPUSCULAR HGB CONC 33 g/dL (31-37); MEAN CORPUSCULAR VOLUME 89 fL (79-100); MONO % 6 % (0-9); NEUT % 65 % (31-73); PLATELET COUNT 306 x10^3/uL (140-400); RED BLOOD COUNT 4.47 x10^6/uL (3.50-5.40); RED CELL DISTRIBUTION WIDTH 13.9 % (11.5-14.5); WHITE BLOOD COUNT 10.7 x10^3/uL (4.0-11.0)
[2017-02-06 12:57] LABS: ALBUMIN/GLOBULIN RATIO 1.1 (1.0-1.7); CALCIUM 9.7 mg/dL (8.5-10.1); CREATININE 0.8 mg/dL (0.6-1.0); GFR 103.3; TOTAL BILIRUBIN 0.8 mg/dL (0.2-1.0); TOTAL PROTEIN 7.8 g/dL (6.4-8.2)
[2017-02-06 13:10] LABS: POTASSIUM 2.8 mmol/L (3.5-5.1)
[2017-02-06] MEDS ORDERED: POTASSIUM CHLORIDE 20 MEQ TABLET.ER. PO ONE ×2 (13:30→18:15)
--- NOTE | 2017-02-06 14:09 | RAD ---
Chest, 2 views, 02/06/2017: History: Shortness of breath The heart size and pulmonary vascularity are normal. The lungs are clear. There is no evidence of pleural fluid. IMPRESSION: No acute cardiopulmonary abnormality is detected.
[2017-02-06] MEDS ORDERED: CONTRAST GIVEN MC PRN (14:15)
[2017-02-06] MEDS ORDERED: IOHEXOL 300 MG/ML 75 ML VIAL IV ONE (14:15)
--- NOTE | 2017-02-06 15:09 | EKG ---
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
--- NOTE | 2017-02-06 15:14 | RAD ---
CT angiogram of the chest with IV contrast Indication: Cough and shortness of breath. Elevated the dimer. Rule out PE. Technique: CT angiogram of the chest with 75 mL of Omnipaque 300 with multiplanar reformats. Sagittal and coronal MIPs reformats were performed on a dedicated workstation. Comparison: Previous study from 12/30/2016 Findings: Diagnostic quality PE study. There are no central, segmental or subsegmental filling defects in the pulmonary arteries. Heart is normal in size. No pericardial or pleural effusion. No axillary, mediastinal or hilar adenopathy. Lungs are clear of consolidations or interstitial infiltrates. No pulmonary nodules or masses. Visualized liver, spleen, gallbladder, pancreas, adrenals and kidneys are within normal limits. No suspicious bony lesion. Impression: 1. No PE. 2. No pneumonia. PQRS Compliance Statement: One or more of the following individualized dose reduction techniques were utilized for this examination: 1. Automated exposure control 2. Adjustment of the mA and/or kV according to patient size 3. Use of iterative reconstruction technique
[2017-02-06] MEDS ORDERED: ALBUTEROL SULFATE 2.5 MG/3 ML NEBU. NEB PRN ×2 (16:00→18:15)
[2017-02-06 17:58] VITALS: BP 118/81
[2017-02-06] MEDS ORDERED: hydrOXYzine PAMOATE 25 MG CAPSULE PO PRN (18:15)
--- NOTE | 2017-02-06 18:16 | PDOC1 ---
History and Physical Date of Admission Date of Admission 02/06/17 Identification/Chief Complaint Chief Complaint sob Problems: Source Source: Chart review, Patient History of Present Illness History of Present Illness HPI HPI Patient is a 26 year old female presents to the emergency department by EMS with C/o SOA and wheezing. pt has multiple vague complains. She said she has been having sob for 1 year, fu with a new PCP in , who found her has some lung and heart problems but cannot tell what they are and have an appt tmr with specialists in . also did LFT, cannot tell me details too. Pt was treated with PCP for bronchitis. has some cough, some yellow sputum. subjective fever, chills. also has chronic nausea/vomiting, low po intake. no smoking. no chest pain, diarrhea, constipation. CTA neg in ER. sat fine. pt looks calm to me, no need NC in ER. Past Medical History Past Medical History bronchitis Past Surgical History Past Surgical History: No pertinent history Family History Family History: Hypertension Social History Smoke: No ALCOHOL: none Drugs: None Current Problem List Problem List Problems Medical Problems: (1) Hypokalemia Status: Acute (2) Wheezing Status: Acute Current Medications Current Medications Current Medications Medications (Trade) Dose Ordered Sig/Hector Start Time Stop Time Status Last Admin Dose Admin Albuterol Sulfate (Ventolin Neb Soln) 2.5 mg PRN Q6HRS PRN 02/06/17 16:00 Info (Do NOT chart on this entry -- for MONITORING) 1 each PRN DAILY PRN 02/06/17 14:15 02/08/17 14:14 Iohexol (Omnipaque 300 Mg/ml) 75 ml 1X ONCE 02/06/17 14:15 02/06/17 14:16 DC 02/06/17 14:46 75 ML Potassium Chloride (Klor-Con) 40 meq 1X ONCE 02/06/17 13:30 02/06/17 13:31 DC 02/06/17 13:48 40 MEQ Allergies Allergies Allergies Coded Allergies Type Severity Reaction Last Updated Verified duloxetine Allergy Intermediate 07/01/15 No sulfamethoxazole Allergy Intermediate 07/01/15 No trimethoprim Allergy Intermediate 07/01/15 No ROS Review of System CONSTITUTIONAL: No fever or chills EYES: No recent changes SKIN: No rash or itching CARDIOVASCULAR: No chest pain, syncope, palpitations, or edema RESPIRATORY: + SOB or cough GASTROINTESTINAL: No nausea, vomiting or abdominal pain NEUROLOGICAL: No headaches or weakness ENDOCRINE: No cold or heat intolerance GENITOURINARY: No urgency or frequency of urination MUSCULOSKELETAL: No back pain or joint pain LYMPHATICS: No enlarged lymph nodes PSYCHIATRIC: No anxiety or depression Physical Exam Physical Exam GEN.: No apparent distress. Alert and oriented. HEENT: Head is normocephalic, atraumatic NECK: Supple. LUNGS: mild wheezing at throat. HEART: RRR, S1, S2 present. Peripheral pulses intact ABDOMEN: Soft, nontender. Positive bowel sounds. EXTREMITIES: Without any cyanosis. NEUROLOGIC: Normal speech, normal tone PSYCHIATRIC: Normal affect, normal mood. SKIN: No ulcerations Vitals Vitals Vital Signs Date Time Temp Pulse Resp B/P (MAP) Pulse Ox O2 Delivery O2 Flow Rate FiO2 02/06/17 17:58 98.1 95 20 118/81 (93) 97 Room Air 98.1 Labs Labs Laboratory Tests Test 02/06/17 12:01 02/06/17 12:30 02/06/17 13:25 Bedside Urine HCG, Qualitative Hcg negative (Negative) White Blood Count 10.7 x10^3/uL (4.0-11.0) Red Blood Count 4.47 x10^6/uL (3.50-5.40) Hemoglobin 13.0 g/dL (12.0-15.5) Hematocrit 39.6 % (36.0-47.0) Mean Corpuscular Volume 89 fL (79-100) Mean Corpuscular Hemoglobin 29 pg (25-35) Mean Corpuscular Hemoglobin Concent 33 g/dL (31-37) Red Cell Distribution Width 13.9 % (11.5-14.5) Platelet Count 306 x10^3/uL (140-400) Neutrophils (%) (Auto) 65 % (31-73) Lymphocytes (%) (Auto) 28 % (24-48) Monocytes (%) (Auto) 6 % (0-9) Eosinophils (%) (Auto) 1 % (0-3) Basophils (%) (Auto) 1 % (0-3) Neutrophils # (Auto) 7.0 x10^3uL (1.8-7.7) Lymphocytes # (Auto) 3.0 x10^3/uL (1.0-4.8) Monocytes # (Auto) 0.6 x10^3/uL (0.0-1.1) Eosinophils # (Auto) 0.1 x10^3/uL (0.0-0.7) Basophils # (Auto) 0.1 x10^3/uL (0.0-0.2) Sodium Level 139 mmol/L (136-145) Potassium Level 2.8 mmol/L (3.5-5.1) Chloride Level 102 mmol/L (98-107) Carbon Dioxide Level 22 mmol/L (21-32) Anion Gap 15 (6-14) Blood Urea Nitrogen 11 mg/dL (7-20) Creatinine 0.8 mg/dL (0.6-1.0) Estimated GFR (Cockcroft-Gault) 103.3 BUN/Creatinine Ratio 14 (6-20) Glucose Level 92 mg/dL (70-99) Calcium Level 9.7 mg/dL (8.5-10.1) Total Bilirubin 0.8 mg/dL (0.2-1.0) Aspartate Amino Transf (AST/SGOT) 8 U/L (15-37) Alanine Aminotransferase (ALT/SGPT) 6 U/L (14-59) Alkaline Phosphatase 71 U/L (46-116) Total Protein 7.8 g/dL (6.4-8.2) Albumin 4.0 g/dL (3.4-5.0) Albumin/Globulin Ratio 1.1 (1.0-1.7) D-Dimer (Santa) 1.66 ug/mlFEU (0.00-0.50) Laboratory Tests Test 02/06/17 12:01 02/06/17 12:30 02/06/17 13:25 Bedside Urine HCG, Qualitative Hcg negative (Negative) White Blood Count 10.7 x10^3/uL (4.0-11.0) Red Blood Count 4.47 x10^6/uL (3.50-5.40) Hemoglobin 13.0 g/dL (12.0-15.5) Hematocrit 39.6 % (36.0-47.0) Mean Corpuscular Volume 89 fL (79-100) Mean Corpuscular Hemoglobin 29 pg (25-35) Mean Corpuscular Hemoglobin Concent 33 g/dL (31-37) Red Cell Distribution Width 13.9 % (11.5-14.5) Platelet Count 306 x10^3/uL (140-400) Neutrophils (%) (Auto) 65 % (31-73) Lymphocytes (%) (Auto) 28 % (24-48) Monocytes (%) (Auto) 6 % (0-9) Eosinophils (%) (Auto) 1 % (0-3) Basophils (%) (Auto) 1 % (0-3) Neutrophils # (Auto) 7.0 x10^3uL (1.8-7.7) Lymphocytes # (Auto) 3.0 x10^3/uL (1.0-4.8) Monocytes # (Auto) 0.6 x10^3/uL (0.0-1.1) Eosinophils # (Auto) 0.1 x10^3/uL (0.0-0.7) Basophils # (Auto) 0.1 x10^3/uL (0.0-0.2) Sodium Level 139 mmol/L (136-145) Potassium Level 2.8 mmol/L (3.5-5.1) Chloride Level 102 mmol/L (98-107) Carbon Dioxide Level 22 mmol/L (21-32) Anion Gap 15 (6-14) Blood Urea Nitrogen 11 mg/dL (7-20) Creatinine 0.8 mg/dL (0.6-1.0) Estimated GFR (Cockcroft-Gault) 103.3 BUN/Creatinine Ratio 14 (6-20) Glucose Level 92 mg/dL (70-99) Calcium Level 9.7 mg/dL (8.5-10.1) Total Bilirubin 0.8 mg/dL (0.2-1.0) Aspartate Amino Transf (AST/SGOT) 8 U/L (15-37) Alanine Aminotransferase (ALT/SGPT) 6 U/L (14-59) Alkaline Phosphatase 71 U/L (46-116) Total Protein 7.8 g/dL (6.4-8.2) Albumin 4.0 g/dL (3.4-5.0) Albumin/Globulin Ratio 1.1 (1.0-1.7) D-Dimer (Santa) 1.66 ug/mlFEU (0.00-0.50) VTE Prophylaxis Ordered VTE Prophylaxis Devices: Yes VTE Pharmacological Prophylaxi: Yes Assessment/Plan Assessment/Plan sob, bronchitis possible h/o bronchitis h/o seizure depression chronic N/V h/o THORATIC OUTLET SYNDROME? as per ER hypokalemia PLAN: Pulm consult pt should be dc tmr early if stable ,so can make to her appt with pulm and card in [facility], cough meds no abx for now since recently treated CTA neg full liquid diet for now dvt ppx, gi ppx replete K check Mag SALLY FELICIANO MD Feb 06, 2017 18:16
[2017-02-06] MEDS: PANTOPRAZOLE 40 MG TABLET.DR. PO SCH (18:49)
[2017-02-06 19:00] VITALS: BP 134/79
[2017-02-06 19:26] LABS: CREATININE 0.7 mg/dL (0.6-1.0); GFR 120.6; POTASSIUM 3.2 mmol/L (3.5-5.1)
[2017-02-06] MEDS: IPRATRPIUM/ALBUTEROL 0.5/2.5MG 3 ML NEBU. NEB SCH (19:55)
[2017-02-06] MEDS ORDERED: ACETAMINOPHEN 325 MG TABLET. PO PRN (20:15)
[2017-02-06] MEDS ORDERED: MORPHINE SULFATE 4 MG/ML DISP.SYRIN. IV PRN (20:15)
[2017-02-06] MEDS ORDERED: ONDANSETRON PF 4 MG/2 ML VIAL. IV PRN (20:15)
[2017-02-06] MEDS ORDERED: DOCUSATE SODIUM 100 MG CAPSULE. PO PRN (20:15)
[2017-02-06] MEDS ORDERED: hydrALAZINE 20 MG/ML VIAL. IVP PRN (20:15)
[2017-02-06] MEDS: BENZONATATE 100 MG CAPSULE. PO SCH (20:48)
[2017-02-06] MEDS: GABAPENTIN 100 MG CAPSULE. PO SCH (20:48)
[2017-02-06] MEDS: traMADol 50 MG TABLET PO PRN (20:48)
[2017-02-06] MEDS: ENOXAPARIN 40 MG/0.4 ML SYRINGE. SQ SCH (20:50)
[2017-02-06 22:54] VITALS: BP 112/71
[2017-02-07 03:00] VITALS: BP 113/70
[2017-02-07 06:31] LABS: BASO % 1 % (0-3); EOS % 2 % (0-3); HEMATOCRIT 36.5 % (36.0-47.0); HEMOGLOBIN 11.9 g/dL (12.0-15.5); LYMPH # 2.5 x10^3/uL (1.0-4.8); LYMPH % 31 % (24-48); MEAN CORPUSCULAR HEMOGLOBIN 29 pg (25-35); MEAN CORPUSCULAR HGB CONC 33 g/dL (31-37); MEAN CORPUSCULAR VOLUME 89 fL (79-100); MONO % 8 % (0-9); NEUT % 59 % (31-73); PLATELET COUNT 275 x10^3/uL (140-400); RED BLOOD COUNT 4.09 x10^6/uL (3.50-5.40); RED CELL DISTRIBUTION WIDTH 14.2 % (11.5-14.5); WHITE BLOOD COUNT 8.3 x10^3/uL (4.0-11.0)
[2017-02-07 06:46] LABS: CALCIUM 8.9 mg/dL (8.5-10.1); CREATININE 0.7 mg/dL (0.6-1.0); GFR 120.6; POTASSIUM 4.4 mmol/L (3.5-5.1)
[2017-02-07 07:00] VITALS: BP 121/69
[2017-02-07] MEDS: IPRATRPIUM/ALBUTEROL 0.5/2.5MG 3 ML NEBU. NEB SCH ×4 (07:30→19:30)
[2017-02-07] MEDS: PANTOPRAZOLE 40 MG TABLET.DR. PO SCH (08:17)
[2017-02-07] MEDS: BENZONATATE 100 MG CAPSULE. PO SCH ×3 (10:34→20:43)
[2017-02-07] MEDS: GABAPENTIN 100 MG CAPSULE. PO SCH ×3 (10:34→20:44)
[2017-02-07] MEDS: ENOXAPARIN 40 MG/0.4 ML SYRINGE. SQ SCH ×2 (10:35→20:43)
[2017-02-07 11:28] VITALS: BP 109/72
--- NOTE | 2017-02-07 11:34 | PDOC2 ---
CARDIAC CONSULT DATE OF CONSULT Date of Consult DATE: 02/07/17 TIME: 11:24 REASON FOR CONSULT Reason for Consult: Left chest pain, lefts sided weakness, SOA REFERRING PHYSICIAN Referring Physician: Quan SOURCE Source: Chart review, Patient HISTORY OF PRESENT ILLNESS HISTORY OF PRESENT ILLNESS This is a pleasant 26 yo female admitted for complains of SOA and wheeze. Reports that she has been having multiple complains with intermittent nausea and sometimes vomiting. Also with intermittent watery diarrhea. Reports that her anterior chest pain is sharp and worse when laying down but better with sitting up and same with her SOA. Reports no palpitations, diaphoresis. Occasionally feels chills but no recorded fever. She has been having all these multiple symptoms but it has been more pronounced in the last 1-2 weeks. She was told of maybe asthma but she was treated with inhalers and sort course of steroids but remains to have wheeze and SOA. Also with small amount of productive coughing yellow to green in sputum. Reports of indigestion and sensation of sourness and metallic taste mainly in AM. Also pt has hx of thoracic outlet syndrome and this causes her occasional numbness and tingling and weakness to her left neck and shoulder. Also has hx of migraine which sometimes would cause the latter and visual disturbances. No childhood heart disease. No routine NSAID use. No prior VTE, OCP use, falls or any injury. PAST MEDICAL HISTORY Cardiovascular: No pertinent hx Pulmonary: Asthma, Other (bronchitis) CENTRAL NERVOUS SYSTEM: Periperal neuropathy, Seizure GI: GERD, Other (chronic nausea) Hepatobiliary: No pertinent hx Psych: Depression Musculoskeletal: Other (thoracic outlet syndrome inducing neuropathic symptoms to neck and shoulder) Rheumatologic: No pertinent hx Infectious disease: No pertinent hx Renal/: UTI Endocrine: No pertinent hx Dermatology: No pertinent hx Grav: 4 Para: 4 PAST SURGICAL HISTORY Past Surgical History: Other (bladder lift ) SOCIAL HISTORY Smoke: No ALCOHOL: none Drugs: None Lives: with Family CURRENT MEDICATIONS CURRENT MEDICATIONS Current Medications Medications (Trade) Dose Ordered Sig/Hector Route PRN Reason Start Time Stop Time Status Last Admin Dose Admin Potassium Chloride (Klor-Con) 40 meq 1X ONCE PO 02/06/17 13:30 02/06/17 13:31 DC 02/06/17 13:48 Iohexol (Omnipaque 300 Mg/ml) 75 ml 1X ONCE IV 02/06/17 14:15 02/06/17 14:16 DC 02/06/17 14:46 Benzonatate (Tessalon Perle) 100 mg TID PO 02/06/17 21:00 02/07/17 10:34 Gabapentin (Neurontin) 100 mg TID PO 02/06/17 21:00 02/07/17 10:34 Pantoprazole Sodium (Protonix) 40 mg DAILYAC PO 02/06/17 18:30 02/07/17 08:17 Albuterol/ Ipratropium (Duoneb) 3 ml RTQID NEB 02/06/17 20:00 02/07/17 07:30 Guaifenesin (Mucinex) 600 mg BID PO 02/06/17 21:00 02/07/17 10:34 Enoxaparin Sodium (Lovenox 40mg Syringe) 40 mg Q12HR SQ 02/06/17 21:00 02/07/17 10:35 Potassium Chloride (Klor-Con) 40 meq 1X ONCE PO 02/06/17 18:15 02/06/17 18:17 DC 02/06/17 18:49 Ondansetron HCl (Zofran) 4 mg PRN Q6HRS PRN IV NAUSEA/VOMITING 02/06/17 20:15 02/07/17 08:18 Tramadol HCl (Ultram) 50 mg PRN Q6HRS PRN PO PAIN 02/06/17 20:15 02/06/17 20:48 ALLERGIES ALLERGIES: Coded Allergies: duloxetine (Verified Allergy, Intermediate, 02/07/17) sulfamethoxazole (Verified Allergy, Intermediate, 02/07/17) trimethoprim (Verified Allergy, Intermediate, 02/07/17) ROS Review of System 14 point ROS evaluated with pertinent pertinent positives noted per HPI PHYSICAL EXAM General: Alert, Oriented X3, Cooperative, No acute distress HEENT: Atraumatic, Mucous membr. moist/pink Lungs: Other (upper wheeze) Heart: Regular rate (SR), Normal S1, Normal S2, Other (VALORIE 2/6 systolic murmur ) Abdomen: Soft, Other (mild epigastric tenderness with palpation) Extremities: No cyanosis, No edema Skin: No significant lesion Neuro: Normal speech, Sensation intact Psych/Mental Status: Mental status NL, Mood NL MUSCULOSKELETAL: Full range of motion without pain VITALS VITALS Vital Signs Date Time Temp Pulse Resp B/P (MAP) Pulse Ox O2 Delivery O2 Flow Rate FiO2 02/07/17 07:30 100 Room Air 02/07/17 07:00 98.4 116 18 121/69 (86) 98.4 LABS Lab: Laboratory Tests Test 02/06/17 12:01 02/06/17 12:30 02/06/17 13:25 02/06/17 18:35 Bedside Urine HCG, Qualitative Hcg negative (Negative) White Blood Count 10.7 x10^3/uL (4.0-11.0) Red Blood Count 4.47 x10^6/uL (3.50-5.40) Hemoglobin 13.0 g/dL (12.0-15.5) Hematocrit 39.6 % (36.0-47.0) Mean Corpuscular Volume 89 fL (79-100) Mean Corpuscular Hemoglobin 29 pg (25-35) Mean Corpuscular Hemoglobin Concent 33 g/dL (31-37) Red Cell Distribution Width 13.9 % (11.5-14.5) Platelet Count 306 x10^3/uL (140-400) Neutrophils (%) (Auto) 65 % (31-73) Lymphocytes (%) (Auto) 28 % (24-48) Monocytes (%) (Auto) 6 % (0-9) Eosinophils (%) (Auto) 1 % (0-3) Basophils (%) (Auto) 1 % (0-3) Neutrophils # (Auto) 7.0 x10^3uL (1.8-7.7) Lymphocytes # (Auto) 3.0 x10^3/uL (1.0-4.8) Monocytes # (Auto) 0.6 x10^3/uL (0.0-1.1) Eosinophils # (Auto) 0.1 x10^3/uL (0.0-0.7) Basophils # (Auto) 0.1 x10^3/uL (0.0-0.2) Sodium Level 139 mmol/L (136-145) 141 mmol/L (136-145) Potassium Level 2.8 mmol/L (3.5-5.1) 3.2 mmol/L (3.5-5.1) Chloride Level 102 mmol/L (98-107) 104 mmol/L (98-107) Carbon Dioxide Level 22 mmol/L (21-32) 28 mmol/L (21-32) Anion Gap 15 (6-14) 9 (6-14) Blood Urea Nitrogen 11 mg/dL (7-20) 10 mg/dL (7-20) Creatinine 0.8 mg/dL (0.6-1.0) 0.7 mg/dL (0.6-1.0) Estimated GFR (Cockcroft-Gault) 103.3 120.6 BUN/Creatinine Ratio 14 (6-20) Glucose Level 92 mg/dL (70-99) 131 mg/dL (70-99) Calcium Level 9.7 mg/dL (8.5-10.1) 9.0 mg/dL (8.5-10.1) Total Bilirubin 0.8 mg/dL (0.2-1.0) Aspartate Amino Transf (AST/SGOT) 8 U/L (15-37) Alanine Aminotransferase (ALT/SGPT) 6 U/L (14-59) Alkaline Phosphatase 71 U/L (46-116) Total Protein 7.8 g/dL (6.4-8.2) Albumin 4.0 g/dL (3.4-5.0) Albumin/Globulin Ratio 1.1 (1.0-1.7) D-Dimer (Santa) 1.66 ug/mlFEU (0.00-0.50) Test 02/07/17 05:50 White Blood Count 8.3 x10^3/uL (4.0-11.0) Red Blood Count 4.09 x10^6/uL (3.50-5.40) Hemoglobin 11.9 g/dL (12.0-15.5) Hematocrit 36.5 % (36.0-47.0) Mean Corpuscular Volume 89 fL (79-100) Mean Corpuscular Hemoglobin 29 pg (25-35) Mean Corpuscular Hemoglobin Concent 33 g/dL (31-37) Red Cell Distribution Width 14.2 % (11.5-14.5) Platelet Count 275 x10^3/uL (140-400) Neutrophils (%) (Auto) 59 % (31-73) Lymphocytes (%) (Auto) 31 % (24-48) Monocytes (%) (Auto) 8 % (0-9) Eosinophils (%) (Auto) 2 % (0-3) Basophils (%) (Auto) 1 % (0-3) Neutrophils # (Auto) 4.9 x10^3uL (1.8-7.7) Lymphocytes # (Auto) 2.5 x10^3/uL (1.0-4.8) Monocytes # (Auto) 0.6 x10^3/uL (0.0-1.1) Eosinophils # (Auto) 0.2 x10^3/uL (0.0-0.7) Basophils # (Auto) 0.0 x10^3/uL (0.0-0.2) Sodium Level 139 mmol/L (136-145) Potassium Level 4.4 mmol/L (3.5-5.1) Chloride Level 105 mmol/L (98-107) Carbon Dioxide Level 28 mmol/L (21-32) Anion Gap 6 (6-14) Blood Urea Nitrogen 8 mg/dL (7-20) Creatinine 0.7 mg/dL (0.6-1.0) Estimated GFR (Cockcroft-Gault) 120.6 Glucose Level 99 mg/dL (70-99) Calcium Level 8.9 mg/dL (8.5-10.1) ASSESSMENT/PLAN ASSESSMENT/PLAN 1. Atypical CP: likely GI and/or bronchospasm. CTA chest unremarkable. 2. Hypokalemia: resolved. 3. Asthma 4. GERD exacerbation: Likely contributing to reactive airway symptoms. Gastroparesis? 5. Chronic nausea and intermittent diarrhea 6. Hx of thoracic outlet syndrome and migraine: neurology following Recommendations 1. EKG SR without acute changes by comparison. Reported that she is due for echo. Will initiate TTE today. 2. TSH, lipid panel. 3. Continue with PPI, nebulizer. Recommend GI consult Problems: AIDAN PIERSON [employer]IMMER Feb 07, 2017 11:34
--- NOTE | 2017-02-07 11:44 | PDOC2 ---
NEUROLOGY CONSULT Date of Admission Date of Admission DATE: 02/07/17 TIME: 11:35 Reason for Consult Reason for Consult: Headache, blurred vision Referring Physician Referring Physician: Dr. Norton PCP: Dr. Garcia Source Source: Chart review, Patient History of Present Illness History of Present Illness The patient is a 26-year-old right-handed female with a long history of headaches with photo phonophobia and occasional nausea. She has been having these up to several times a month. She has never been treated for migraines but she says she saw a neurologist at . She also has had blurred vision, left- sided numbness and weakness, and dizziness. The dizzy episodes are associated with the headaches. She denies vertigo or lightheadedness, but instead describes a feeling of disequilibrium. She denies dysarthria, dysphagia, diplopia, and there is no history of stroke, seizure, or head injury. There is a possible diagnosis of thoracic outlet syndrome but the patient does not know any details in this assisted diagnosis that appears in the emergency department notes. She was scheduled for cardiac and pulmonary workups at but admitted here because of dyspnea last night. 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 Current Medications Current Medications Current Medications Potassium Chloride (Klor-Con) 40 meq 1X ONCE PO Last administered on 13:48; Start 02/06/17 at 13:30; Stop 02/06/17 at 13:31; Status DC Iohexol (Omnipaque 300 Mg/ml) 75 ml 1X ONCE IV Last administered on 02/06/17 14:46; Start 02/06/17 at 14:15; Stop 02/06/17 at 14:16; Status DC Info (Do NOT chart on this entry -- for MONITORING) 1 each PRN DAILY PRN MC SEE COMMENTS; Start 02/06/17 at 14:15; Stop 02/08/17 at 14:14 Albuterol Sulfate (Ventolin Neb Soln) 2.5 mg PRN Q6HRS PRN NEB wheezing; Start 02/06/17 at 16:00; Stop 02/06/17 at 18:12; Status DC Benzonatate (Tessalon Perle) 100 mg TID PO Last administered on 02/07/17 10:34 ; Start 02/06/17 at 21:00 Gabapentin (Neurontin) 100 mg TID PO Last administered on 02/07/17 10:34; Start 02/06/17 at 21:00 Hydroxyzine Pamoate (Vistaril) 25 mg PRN TID PRN PO ITCHING; Start 02/06/17 at 18:15 Pantoprazole Sodium (Protonix) 40 mg DAILYAC PO Last administered on 02/07/17 08:17; Start 02/06/17 at 18:30 Albuterol/ Ipratropium (Duoneb) 3 ml RTQID NEB Last administered on 02/07/17 11:31; Start 02/06/17 at 20:00 Albuterol Sulfate (Ventolin Neb Soln) 2.5 mg PRN Q2HR PRN NEB SHORTNESS OF BREATH; Start 02/06/17 at 18:15 Guaifenesin (Mucinex) 600 mg BID PO Last administered on 02/07/17 10:34; Start 02/06/17 at 21:00 Enoxaparin Sodium (Lovenox 40mg Syringe) 40 mg Q12HR SQ Last administered on 10:35; Start 02/06/17 at 21:00 Potassium Chloride (Klor-Con) 40 meq 1X ONCE PO Last administered on 18:49; Start 02/06/17 at 18:15; Stop 02/06/17 at 18:17; Status DC Acetaminophen (Tylenol) 650 mg PRN Q6HRS PRN PO FEVER; Start 02/06/17 at 20:15 Ondansetron HCl (Zofran) 4 mg PRN Q6HRS PRN IV NAUSEA/VOMITING Last administered on 02/07/17 08:18; Start 02/06/17 at 20:15 Morphine Sulfate 2 mg PRN Q2HR PRN IV PAIN; Start 02/06/17 at 20:15 Tramadol HCl (Ultram) 50 mg PRN Q6HRS PRN PO PAIN Last administered on t 20:48; Start 02/06/17 at 20:15 Hydralazine HCl (Apresoline) 10 mg PRN Q4HRS PRN IVP ELEVATED BP, SEE COMMENTS ; Start 02/06/17 at 20:15 Docusate Sodium (Colace) 100 mg PRN DAILY PRN PO CONSTIPATION; Start 02/06/17 at 20:15 Active Scripts Active Proair Hfa Inhaler (Albuterol Sulfate) 8.5 Gm Hfa.aer.ad 1 Puff INH PRN Q6HRS PRN Prednisone 20 Mg Tablet 40 Mg PO DAILY Cephalexin 500 Mg Tablet 1 Tab PO BID Cephalexin 500 Mg Tablet 1 Tab PO BID Prednisone 50 Mg Tablet 1 Tab PO DAILY Tessalon Perle (Benzonatate) 100 Mg Capsule 1 Cap PO TID Proair Respiclick (Albuterol Sulfate) 90 Mcg Aer.pow.ba 1 Puff IH PRN Q6HRS PRN Hydroxyzine Hcl 25 Mg Tablet 1 Tab PO TID Triamcinolone Acetonide 0.1% Oint (Triamcinolone Acetonide) 15 Gm Oint...g. 1 Yessenia TP BID MIX WITH EUCERIN DIRECTED BY PHYSICIAN Ketoconazole 120 Ml Shampoo 1 Yessenia TP TWICE WEEKLY Keflex (Cephalexin) 500 Mg Capsule 1 Cap PO BID Benzonatate 200 Mg Capsule 1 Cap PO TID Reported Gabapentin 100 Mg Capsule 100 Mg PO TID Prilosec (Omeprazole) 20 Mg Capsule.dr 20 Mg PO DAILY Hydroxyzine Hcl 10 Mg/5 Ml Syrup 10 Mg PO Naproxen 375 Mg Tablet 375 Mg PO Meclizine Hcl 12.5 Mg Tablet 12.5 Mg PO Allergies Allergies: Coded Allergies: duloxetine (Verified Allergy, Intermediate, 02/07/17) sulfamethoxazole (Verified Allergy, Intermediate, 02/07/17) trimethoprim (Verified Allergy, Intermediate, 02/07/17) ROS Review of System Patient denies fevers, chills, weight loss, dyspnea, angina, abdominal pain, change in bowels, or dysuria. 14 point review of systems is negative. Physical Exam Physical Examination PHYSICAL EXAMINATION: Vital signs: see above. General appearance is normal and in no acute distress. HEENT: Normocephalic and nontraumatic. Eyes, nose, ears, and throat are unremarkable. Neck is supple. No lymphadenopathy. No bruits are heard over the carotid artery. No crepitus. NEUROLOGICAL EXAMINATION: Mental Status Examination: Alert. Oriented to time, place, and person. Answers questions and follows commends. She is a very poor historian. Pupils are equal round and reactive to light and accommodation. Funduscopic exam: No papilledema. Extraocular movements are intact. Visual field exam shows no defect on the direct confrontation. No motor or sensory deficits on the facial exam. Uvula in the midline and the soft palate elevated symmetrically. No deviation of the tongue to any direction. Gross hearing is normal. Shoulder shrug normal. Muscle tone is normal. Muscle strength is 5. Deep tendon reflexes are 2+ all around. Plantar reflex is with flexion response bilaterally. [id number]-[id number] test performance is accurate. Tandem walk test is accurate. Alternative movements are accurate. Romberg test is negative. Gait is normal. Sensory exam shows no deficits. No cerebellar signs are elicited. Vitals VITALS Vital Signs Date Time Temp Pulse Resp B/P (MAP) Pulse Ox O2 Delivery O2 Flow Rate FiO2 02/07/17 11:32 Room Air 02/07/17 11:28 98.5 88 18 109/72 (84) 95 98.5 Labs Labs Laboratory Tests Test 02/06/17 12:01 02/06/17 12:30 02/06/17 13:25 02/06/17 18:35 Bedside Urine HCG, Qualitative Hcg negative (Negative) White Blood Count 10.7 x10^3/uL (4.0-11.0) Red Blood Count 4.47 x10^6/uL (3.50-5.40) Hemoglobin 13.0 g/dL (12.0-15.5) Hematocrit 39.6 % (36.0-47.0) Mean Corpuscular Volume 89 fL (79-100) Mean Corpuscular Hemoglobin 29 pg (25-35) Mean Corpuscular Hemoglobin Concent 33 g/dL (31-37) Red Cell Distribution Width 13.9 % (11.5-14.5) Platelet Count 306 x10^3/uL (140-400) Neutrophils (%) (Auto) 65 % (31-73) Lymphocytes (%) (Auto) 28 % (24-48) Monocytes (%) (Auto) 6 % (0-9) Eosinophils (%) (Auto) 1 % (0-3) Basophils (%) (Auto) 1 % (0-3) Neutrophils # (Auto) 7.0 x10^3uL (1.8-7.7) Lymphocytes # (Auto) 3.0 x10^3/uL (1.0-4.8) Monocytes # (Auto) 0.6 x10^3/uL (0.0-1.1) Eosinophils # (Auto) 0.1 x10^3/uL (0.0-0.7) Basophils # (Auto) 0.1 x10^3/uL (0.0-0.2) Sodium Level 139 mmol/L (136-145) 141 mmol/L (136-145) Potassium Level 2.8 mmol/L (3.5-5.1) 3.2 mmol/L (3.5-5.1) Chloride Level 102 mmol/L (98-107) 104 mmol/L (98-107) Carbon Dioxide Level 22 mmol/L (21-32) 28 mmol/L (21-32) Anion Gap 15 (6-14) 9 (6-14) Blood Urea Nitrogen 11 mg/dL (7-20) 10 mg/dL (7-20) Creatinine 0.8 mg/dL (0.6-1.0) 0.7 mg/dL (0.6-1.0) Estimated GFR (Cockcroft-Gault) 103.3 120.6 BUN/Creatinine Ratio 14 (6-20) Glucose Level 92 mg/dL (70-99) 131 mg/dL (70-99) Calcium Level 9.7 mg/dL (8.5-10.1) 9.0 mg/dL (8.5-10.1) Total Bilirubin 0.8 mg/dL (0.2-1.0) Aspartate Amino Transf (AST/SGOT) 8 U/L (15-37) Alanine Aminotransferase (ALT/SGPT) 6 U/L (14-59) Alkaline Phosphatase 71 U/L (46-116) Total Protein 7.8 g/dL (6.4-8.2) Albumin 4.0 g/dL (3.4-5.0) Albumin/Globulin Ratio 1.1 (1.0-1.7) D-Dimer (Santa) 1.66 ug/mlFEU (0.00-0.50) Test 02/07/17 05:50 White Blood Count 8.3 x10^3/uL (4.0-11.0) Red Blood Count 4.09 x10^6/uL (3.50-5.40) Hemoglobin 11.9 g/dL (12.0-15.5) Hematocrit 36.5 % (36.0-47.0) Mean Corpuscular Volume 89 fL (79-100) Mean Corpuscular Hemoglobin 29 pg (25-35) Mean Corpuscular Hemoglobin Concent 33 g/dL (31-37) Red Cell Distribution Width 14.2 % (11.5-14.5) Platelet Count 275 x10^3/uL (140-400) Neutrophils (%) (Auto) 59 % (31-73) Lymphocytes (%) (Auto) 31 % (24-48) Monocytes (%) (Auto) 8 % (0-9) Eosinophils (%) (Auto) 2 % (0-3) Basophils (%) (Auto) 1 % (0-3) Neutrophils # (Auto) 4.9 x10^3uL (1.8-7.7) Lymphocytes # (Auto) 2.5 x10^3/uL (1.0-4.8) Monocytes # (Auto) 0.6 x10^3/uL (0.0-1.1) Eosinophils # (Auto) 0.2 x10^3/uL (0.0-0.7) Basophils # (Auto) 0.0 x10^3/uL (0.0-0.2) Sodium Level 139 mmol/L (136-145) Potassium Level 4.4 mmol/L (3.5-5.1) Chloride Level 105 mmol/L (98-107) Carbon Dioxide Level 28 mmol/L (21-32) Anion Gap 6 (6-14) Blood Urea Nitrogen 8 mg/dL (7-20) Creatinine 0.7 mg/dL (0.6-1.0) Estimated GFR (Cockcroft-Gault) 120.6 Glucose Level 99 mg/dL (70-99) Calcium Level 8.9 mg/dL (8.5-10.1) Laboratory Tests Test 02/06/17 12:01 02/06/17 12:30 02/06/17 13:25 02/06/17 18:35 Bedside Urine HCG, Qualitative Hcg negative (Negative) White Blood Count 10.7 x10^3/uL (4.0-11.0) Red Blood Count 4.47 x10^6/uL (3.50-5.40) Hemoglobin 13.0 g/dL (12.0-15.5) Hematocrit 39.6 % (36.0-47.0) Mean Corpuscular Volume 89 fL (79-100) Mean Corpuscular Hemoglobin 29 pg (25-35) Mean Corpuscular Hemoglobin Concent 33 g/dL (31-37) Red Cell Distribution Width 13.9 % (11.5-14.5) Platelet Count 306 x10^3/uL (140-400) Neutrophils (%) (Auto) 65 % (31-73) Lymphocytes (%) (Auto) 28 % (24-48) Monocytes (%) (Auto) 6 % (0-9) Eosinophils (%) (Auto) 1 % (0-3) Basophils (%) (Auto) 1 % (0-3) Neutrophils # (Auto) 7.0 x10^3uL (1.8-7.7) Lymphocytes # (Auto) 3.0 x10^3/uL (1.0-4.8) Monocytes # (Auto) 0.6 x10^3/uL (0.0-1.1) Eosinophils # (Auto) 0.1 x10^3/uL (0.0-0.7) Basophils # (Auto) 0.1 x10^3/uL (0.0-0.2) Sodium Level 139 mmol/L (136-145) 141 mmol/L (136-145) Potassium Level 2.8 mmol/L (3.5-5.1) 3.2 mmol/L (3.5-5.1) Chloride Level 102 mmol/L (98-107) 104 mmol/L (98-107) Carbon Dioxide Level 22 mmol/L (21-32) 28 mmol/L (21-32) Anion Gap 15 (6-14) 9 (6-14) Blood Urea Nitrogen 11 mg/dL (7-20) 10 mg/dL (7-20) Creatinine 0.8 mg/dL (0.6-1.0) 0.7 mg/dL (0.6-1.0) Estimated GFR (Cockcroft-Gault) 103.3 120.6 BUN/Creatinine Ratio 14 (6-20) Glucose Level 92 mg/dL (70-99) 131 mg/dL (70-99) Calcium Level 9.7 mg/dL (8.5-10.1) 9.0 mg/dL (8.5-10.1) Total Bilirubin 0.8 mg/dL (0.2-1.0) Aspartate Amino Transf (AST/SGOT) 8 U/L (15-37) Alanine Aminotransferase (ALT/SGPT) 6 U/L (14-59) Alkaline Phosphatase 71 U/L (46-116) Total Protein 7.8 g/dL (6.4-8.2) Albumin 4.0 g/dL (3.4-5.0) Albumin/Globulin Ratio 1.1 (1.0-1.7) D-Dimer (Santa) 1.66 ug/mlFEU (0.00-0.50) Test 02/07/17 05:50 White Blood Count 8.3 x10^3/uL (4.0-11.0) Red Blood Count 4.09 x10^6/uL (3.50-5.40) Hemoglobin 11.9 g/dL (12.0-15.5) Hematocrit 36.5 % (36.0-47.0) Mean Corpuscular Volume 89 fL (79-100) Mean Corpuscular Hemoglobin 29 pg (25-35) Mean Corpuscular Hemoglobin Concent 33 g/dL (31-37) Red Cell Distribution Width 14.2 % (11.5-14.5) Platelet Count 275 x10^3/uL (140-400) Neutrophils (%) (Auto) 59 % (31-73) Lymphocytes (%) (Auto) 31 % (24-48) Monocytes (%) (Auto) 8 % (0-9) Eosinophils (%) (Auto) 2 % (0-3) Basophils (%) (Auto) 1 % (0-3) Neutrophils # (Auto) 4.9 x10^3uL (1.8-7.7) Lymphocytes # (Auto) 2.5 x10^3/uL (1.0-4.8) Monocytes # (Auto) 0.6 x10^3/uL (0.0-1.1) Eosinophils # (Auto) 0.2 x10^3/uL (0.0-0.7) Basophils # (Auto) 0.0 x10^3/uL (0.0-0.2) Sodium Level 139 mmol/L (136-145) Potassium Level 4.4 mmol/L (3.5-5.1) Chloride Level 105 mmol/L (98-107) Carbon Dioxide Level 28 mmol/L (21-32) Anion Gap 6 (6-14) Blood Urea Nitrogen 8 mg/dL (7-20) Creatinine 0.7 mg/dL (0.6-1.0) Estimated GFR (Cockcroft-Gault) 120.6 Glucose Level 99 mg/dL (70-99) Calcium Level 8.9 mg/dL (8.5-10.1) Assessment/Plan Assessment/Plan Impression: Most likely this is migraines with migraine-associated dizziness. The patient is a very poor historian. For instance, I asked her if she had depression and she said no, but it turns out she has a diagnosis of bipolar. She says that she has had no symptoms of this and was released by her psychiatrist. Recommendations: I discussed risks, benefits, alternatives, side effects, and would like to try her on escitalopram as treatment for her headaches and migraine-associated dizziness. Brain MRI Follow-up with me in 4-6 weeks. Thank you for letting me help with the patient's care. JR HYMAN MD Feb 07, 2017 11:44
[2017-02-07] MEDS ORDERED: CITALOPRAM 20 MG TABLET. PO SCH (12:00)
--- NOTE | 2017-02-07 12:02 | PDOC ---
PROGRESS NOTES Chief Complaint Chief Complaint SOB L sided chest pain L shoulder weakness Migraines Depression Bronchitis Chronic nausea/vomiting History of Present Illness History of Present Illness Pt laying in bed. Talkative. Pt appeared anxious Vitals Vitals Vital Signs Date Time Temp Pulse Resp B/P (MAP) Pulse Ox O2 Delivery O2 Flow Rate FiO2 02/07/17 11:32 Room Air 02/07/17 11:28 98.5 88 18 109/72 (84) 95 98.5 Physical Exam General: Alert, Oriented X3, Cooperative Heart: Regular rate, No murmurs Lungs: Clear, Other (No acute respiratory distress) Abdomen: Normal bowel sounds, Soft Extremities: No clubbing, No cyanosis Skin: No rashes, No breakdown Labs LABS Laboratory Tests Test 02/06/17 12:30 02/06/17 13:25 02/06/17 18:35 02/07/17 05:50 White Blood Count 10.7 x10^3/uL (4.0-11.0) 8.3 x10^3/uL (4.0-11.0) Red Blood Count 4.47 x10^6/uL (3.50-5.40) 4.09 x10^6/uL (3.50-5.40) Hemoglobin 13.0 g/dL (12.0-15.5) 11.9 g/dL (12.0-15.5) Hematocrit 39.6 % (36.0-47.0) 36.5 % (36.0-47.0) Mean Corpuscular Volume 89 fL (79-100) 89 fL (79-100) Mean Corpuscular Hemoglobin 29 pg (25-35) 29 pg (25-35) Mean Corpuscular Hemoglobin Concent 33 g/dL (31-37) 33 g/dL (31-37) Red Cell Distribution Width 13.9 % (11.5-14.5) 14.2 % (11.5-14.5) Platelet Count 306 x10^3/uL (140-400) 275 x10^3/uL (140-400) Neutrophils (%) (Auto) 65 % (31-73) 59 % (31-73) Lymphocytes (%) (Auto) 28 % (24-48) 31 % (24-48) Monocytes (%) (Auto) 6 % (0-9) 8 % (0-9) Eosinophils (%) (Auto) 1 % (0-3) 2 % (0-3) Basophils (%) (Auto) 1 % (0-3) 1 % (0-3) Neutrophils # (Auto) 7.0 x10^3uL (1.8-7.7) 4.9 x10^3uL (1.8-7.7) Lymphocytes # (Auto) 3.0 x10^3/uL (1.0-4.8) 2.5 x10^3/uL (1.0-4.8) Monocytes # (Auto) 0.6 x10^3/uL (0.0-1.1) 0.6 x10^3/uL (0.0-1.1) Eosinophils # (Auto) 0.1 x10^3/uL (0.0-0.7) 0.2 x10^3/uL (0.0-0.7) Basophils # (Auto) 0.1 x10^3/uL (0.0-0.2) 0.0 x10^3/uL (0.0-0.2) Sodium Level 139 mmol/L (136-145) 141 mmol/L (136-145) 139 mmol/L (136-145) Potassium Level 2.8 mmol/L (3.5-5.1) 3.2 mmol/L (3.5-5.1) 4.4 mmol/L (3.5-5.1) Chloride Level 102 mmol/L (98-107) 104 mmol/L (98-107) 105 mmol/L (98-107) Carbon Dioxide Level 22 mmol/L (21-32) 28 mmol/L (21-32) 28 mmol/L (21-32) Anion Gap 15 (6-14) 9 (6-14) 6 (6-14) Blood Urea Nitrogen 11 mg/dL (7-20) 10 mg/dL (7-20) 8 mg/dL (7-20) Creatinine 0.8 mg/dL (0.6-1.0) 0.7 mg/dL (0.6-1.0) 0.7 mg/dL (0.6-1.0) Estimated GFR (Cockcroft-Gault) 103.3 120.6 120.6 BUN/Creatinine Ratio 14 (6-20) Glucose Level 92 mg/dL (70-99) 131 mg/dL (70-99) 99 mg/dL (70-99) Calcium Level 9.7 mg/dL (8.5-10.1) 9.0 mg/dL (8.5-10.1) 8.9 mg/dL (8.5-10.1) Total Bilirubin 0.8 mg/dL (0.2-1.0) Aspartate Amino Transf (AST/SGOT) 8 U/L (15-37) Alanine Aminotransferase (ALT/SGPT) 6 U/L (14-59) Alkaline Phosphatase 71 U/L (46-116) Total Protein 7.8 g/dL (6.4-8.2) Albumin 4.0 g/dL (3.4-5.0) Albumin/Globulin Ratio 1.1 (1.0-1.7) D-Dimer (Santa) 1.66 ug/mlFEU (0.00-0.50) Review of Systems Review of Systems C/o chest tenderness C/o L shoulder weakness C/o blurry vision for past 24 hrs Assessment and Plan Assessmemt and Plan 1. SOB/bronchitis: pulm consult 2. Chest pain: cardio consult. D/c when ok w/ cardio 3. Blurry vision: consulted neuro 4. Hypokalemia: continue to monitor levels 5. Depression: follow-up w/ PCP regarding depression Problems: Comment Review of Relevant I have reviewed the following items elizabeth (where applicable) has been applied. Labs Laboratory Tests Test 02/06/17 12:01 02/06/17 12:30 02/06/17 13:25 02/06/17 18:35 Bedside Urine HCG, Qualitative Hcg negative (Negative) White Blood Count 10.7 x10^3/uL (4.0-11.0) Red Blood Count 4.47 x10^6/uL (3.50-5.40) Hemoglobin 13.0 g/dL (12.0-15.5) Hematocrit 39.6 % (36.0-47.0) Mean Corpuscular Volume 89 fL (79-100) Mean Corpuscular Hemoglobin 29 pg (25-35) Mean Corpuscular Hemoglobin Concent 33 g/dL (31-37) Red Cell Distribution Width 13.9 % (11.5-14.5) Platelet Count 306 x10^3/uL (140-400) Neutrophils (%) (Auto) 65 % (31-73) Lymphocytes (%) (Auto) 28 % (24-48) Monocytes (%) (Auto) 6 % (0-9) Eosinophils (%) (Auto) 1 % (0-3) Basophils (%) (Auto) 1 % (0-3) Neutrophils # (Auto) 7.0 x10^3uL (1.8-7.7) Lymphocytes # (Auto) 3.0 x10^3/uL (1.0-4.8) Monocytes # (Auto) 0.6 x10^3/uL (0.0-1.1) Eosinophils # (Auto) 0.1 x10^3/uL (0.0-0.7) Basophils # (Auto) 0.1 x10^3/uL (0.0-0.2) Sodium Level 139 mmol/L (136-145) 141 mmol/L (136-145) Potassium Level 2.8 mmol/L (3.5-5.1) 3.2 mmol/L (3.5-5.1) Chloride Level 102 mmol/L (98-107) 104 mmol/L (98-107) Carbon Dioxide Level 22 mmol/L (21-32) 28 mmol/L (21-32) Anion Gap 15 (6-14) 9 (6-14) Blood Urea Nitrogen 11 mg/dL (7-20) 10 mg/dL (7-20) Creatinine 0.8 mg/dL (0.6-1.0) 0.7 mg/dL (0.6-1.0) Estimated GFR (Cockcroft-Gault) 103.3 120.6 BUN/Creatinine Ratio 14 (6-20) Glucose Level 92 mg/dL (70-99) 131 mg/dL (70-99) Calcium Level 9.7 mg/dL (8.5-10.1) 9.0 mg/dL (8.5-10.1) Total Bilirubin 0.8 mg/dL (0.2-1.0) Aspartate Amino Transf (AST/SGOT) 8 U/L (15-37) Alanine Aminotransferase (ALT/SGPT) 6 U/L (14-59) Alkaline Phosphatase 71 U/L (46-116) Total Protein 7.8 g/dL (6.4-8.2) Albumin 4.0 g/dL (3.4-5.0) Albumin/Globulin Ratio 1.1 (1.0-1.7) D-Dimer (Santa) 1.66 ug/mlFEU (0.00-0.50) Test 02/07/17 05:50 White Blood Count 8.3 x10^3/uL (4.0-11.0) Red Blood Count 4.09 x10^6/uL (3.50-5.40) Hemoglobin 11.9 g/dL (12.0-15.5) Hematocrit 36.5 % (36.0-47.0) Mean Corpuscular Volume 89 fL (79-100) Mean Corpuscular Hemoglobin 29 pg (25-35) Mean Corpuscular Hemoglobin Concent 33 g/dL (31-37) Red Cell Distribution Width 14.2 % (11.5-14.5) Platelet Count 275 x10^3/uL (140-400) Neutrophils (%) (Auto) 59 % (31-73) Lymphocytes (%) (Auto) 31 % (24-48) Monocytes (%) (Auto) 8 % (0-9) Eosinophils (%) (Auto) 2 % (0-3) Basophils (%) (Auto) 1 % (0-3) Neutrophils # (Auto) 4.9 x10^3uL (1.8-7.7) Lymphocytes # (Auto) 2.5 x10^3/uL (1.0-4.8) Monocytes # (Auto) 0.6 x10^3/uL (0.0-1.1) Eosinophils # (Auto) 0.2 x10^3/uL (0.0-0.7) Basophils # (Auto) 0.0 x10^3/uL (0.0-0.2) Sodium Level 139 mmol/L (136-145) Potassium Level 4.4 mmol/L (3.5-5.1) Chloride Level 105 mmol/L (98-107) Carbon Dioxide Level 28 mmol/L (21-32) Anion Gap 6 (6-14) Blood Urea Nitrogen 8 mg/dL (7-20) Creatinine 0.7 mg/dL (0.6-1.0) Estimated GFR (Cockcroft-Gault) 120.6 Glucose Level 99 mg/dL (70-99) Calcium Level 8.9 mg/dL (8.5-10.1) Laboratory Tests Test 02/06/17 12:30 02/06/17 13:25 02/06/17 18:35 02/07/17 05:50 White Blood Count 10.7 x10^3/uL (4.0-11.0) 8.3 x10^3/uL (4.0-11.0) Red Blood Count 4.47 x10^6/uL (3.50-5.40) 4.09 x10^6/uL (3.50-5.40) Hemoglobin 13.0 g/dL (12.0-15.5) 11.9 g/dL (12.0-15.5) Hematocrit 39.6 % (36.0-47.0) 36.5 % (36.0-47.0) Mean Corpuscular Volume 89 fL (79-100) 89 fL (79-100) Mean Corpuscular Hemoglobin 29 pg (25-35) 29 pg (25-35) Mean Corpuscular Hemoglobin Concent 33 g/dL (31-37) 33 g/dL (31-37) Red Cell Distribution Width 13.9 % (11.5-14.5) 14.2 % (11.5-14.5) Platelet Count 306 x10^3/uL (140-400) 275 x10^3/uL (140-400) Neutrophils (%) (Auto) 65 % (31-73) 59 % (31-73) Lymphocytes (%) (Auto) 28 % (24-48) 31 % (24-48) Monocytes (%) (Auto) 6 % (0-9) 8 % (0-9) Eosinophils (%) (Auto) 1 % (0-3) 2 % (0-3) Basophils (%) (Auto) 1 % (0-3) 1 % (0-3) Neutrophils # (Auto) 7.0 x10^3uL (1.8-7.7) 4.9 x10^3uL (1.8-7.7) Lymphocytes # (Auto) 3.0 x10^3/uL (1.0-4.8) 2.5 x10^3/uL (1.0-4.8) Monocytes # (Auto) 0.6 x10^3/uL (0.0-1.1) 0.6 x10^3/uL (0.0-1.1) Eosinophils # (Auto) 0.1 x10^3/uL (0.0-0.7) 0.2 x10^3/uL (0.0-0.7) Basophils # (Auto) 0.1 x10^3/uL (0.0-0.2) 0.0 x10^3/uL (0.0-0.2) Sodium Level 139 mmol/L (136-145) 141 mmol/L (136-145) 139 mmol/L (136-145) Potassium Level 2.8 mmol/L (3.5-5.1) 3.2 mmol/L (3.5-5.1) 4.4 mmol/L (3.5-5.1) Chloride Level 102 mmol/L (98-107) 104 mmol/L (98-107) 105 mmol/L (98-107) Carbon Dioxide Level 22 mmol/L (21-32) 28 mmol/L (21-32) 28 mmol/L (21-32) Anion Gap 15 (6-14) 9 (6-14) 6 (6-14) Blood Urea Nitrogen 11 mg/dL (7-20) 10 mg/dL (7-20) 8 mg/dL (7-20) Creatinine 0.8 mg/dL (0.6-1.0) 0.7 mg/dL (0.6-1.0) 0.7 mg/dL (0.6-1.0) Estimated GFR (Cockcroft-Gault) 103.3 120.6 120.6 BUN/Creatinine Ratio 14 (6-20) Glucose Level 92 mg/dL (70-99) 131 mg/dL (70-99) 99 mg/dL (70-99) Calcium Level 9.7 mg/dL (8.5-10.1) 9.0 mg/dL (8.5-10.1) 8.9 mg/dL (8.5-10.1) Total Bilirubin 0.8 mg/dL (0.2-1.0) Aspartate Amino Transf (AST/SGOT) 8 U/L (15-37) Alanine Aminotransferase (ALT/SGPT) 6 U/L (14-59) Alkaline Phosphatase 71 U/L (46-116) Total Protein 7.8 g/dL (6.4-8.2) Albumin 4.0 g/dL (3.4-5.0) Albumin/Globulin Ratio 1.1 (1.0-1.7) D-Dimer (Santa) 1.66 ug/mlFEU (0.00-0.50) Medications Current Medications Potassium Chloride (Klor-Con) 40 meq 1X ONCE PO Last administered on 13:48; Start 02/06/17 at 13:30; Stop 02/06/17 at 13:31; Status DC Iohexol (Omnipaque 300 Mg/ml) 75 ml 1X ONCE IV Last administered on 02/06/17 14:46; Start 02/06/17 at 14:15; Stop 02/06/17 at 14:16; Status DC Info (Do NOT chart on this entry -- for MONITORING) 1 each PRN DAILY PRN MC SEE COMMENTS; Start 02/06/17 at 14:15; Stop 02/08/17 at 14:14 Albuterol Sulfate (Ventolin Neb Soln) 2.5 mg PRN Q6HRS PRN NEB wheezing; Start 02/06/17 at 16:00; Stop 02/06/17 at 18:12; Status DC Benzonatate (Tessalon Perle) 100 mg TID PO Last administered on 02/07/17 10:34 ; Start 02/06/17 at 21:00 Gabapentin (Neurontin) 100 mg TID PO Last administered on 02/07/17 10:34; Start 02/06/17 at 21:00 Hydroxyzine Pamoate (Vistaril) 25 mg PRN TID PRN PO ITCHING; Start 02/06/17 at 18:15 Pantoprazole Sodium (Protonix) 40 mg DAILYAC PO Last administered on 02/07/17 08:17; Start 02/06/17 at 18:30 Albuterol/ Ipratropium (Duoneb) 3 ml RTQID NEB Last administered on 02/07/17 11:31; Start 02/06/17 at 20:00 Albuterol Sulfate (Ventolin Neb Soln) 2.5 mg PRN Q2HR PRN NEB SHORTNESS OF BREATH; Start 02/06/17 at 18:15 Guaifenesin (Mucinex) 600 mg BID PO Last administered on 02/07/17 10:34; Start 02/06/17 at 21:00 Enoxaparin Sodium (Lovenox 40mg Syringe) 40 mg Q12HR SQ Last administered on 10:35; Start 02/06/17 at 21:00 Potassium Chloride (Klor-Con) 40 meq 1X ONCE PO Last administered on 18:49; Start 02/06/17 at 18:15; Stop 02/06/17 at 18:17; Status DC Acetaminophen (Tylenol) 650 mg PRN Q6HRS PRN PO FEVER; Start 02/06/17 at 20:15 Ondansetron HCl (Zofran) 4 mg PRN Q6HRS PRN IV NAUSEA/VOMITING Last administered on 02/07/17 08:18; Start 02/06/17 at 20:15 Morphine Sulfate 2 mg PRN Q2HR PRN IV PAIN; Start 02/06/17 at 20:15 Tramadol HCl (Ultram) 50 mg PRN Q6HRS PRN PO PAIN Last administered on 20:48; Start 02/06/17 at 20:15 Hydralazine HCl (Apresoline) 10 mg PRN Q4HRS PRN IVP ELEVATED BP, SEE COMMENTS ; Start 02/06/17 at 20:15 Docusate Sodium (Colace) 100 mg PRN DAILY PRN PO CONSTIPATION; Start 02/06/17 at 20:15 Citalopram Hydrobromide (CeleXA) 20 mg DAILY PO ; Start 02/07/17 at 12:00 Active Scripts Active Proair Hfa Inhaler (Albuterol Sulfate) 8.5 Gm Hfa.aer.ad 1 Puff INH PRN Q6HRS PRN Prednisone 20 Mg Tablet 40 Mg PO DAILY Cephalexin 500 Mg Tablet 1 Tab PO BID Cephalexin 500 Mg Tablet 1 Tab PO BID Prednisone 50 Mg Tablet 1 Tab PO DAILY Tessalon Perle (Benzonatate) 100 Mg Capsule 1 Cap PO TID Proair Respiclick (Albuterol Sulfate) 90 Mcg Aer.pow.ba 1 Puff IH PRN Q6HRS PRN Hydroxyzine Hcl 25 Mg Tablet 1 Tab PO TID Triamcinolone Acetonide 0.1% Oint (Triamcinolone Acetonide) 15 Gm Oint...g. 1 Yessenia TP BID MIX WITH EUCERIN DIRECTED BY PHYSICIAN Ketoconazole 120 Ml Shampoo 1 Yessenia TP TWICE WEEKLY Keflex (Cephalexin) 500 Mg Capsule 1 Cap PO BID Benzonatate 200 Mg Capsule 1 Cap PO TID Reported Gabapentin 100 Mg Capsule 100 Mg PO TID Prilosec (Omeprazole) 20 Mg Capsule.dr 20 Mg PO DAILY Hydroxyzine Hcl 10 Mg/5 Ml Syrup 10 Mg PO Naproxen 375 Mg Tablet 375 Mg PO Meclizine Hcl 12.5 Mg Tablet 12.5 Mg PO Vitals/I & O Vital Sign - Last 24 Hours 02/06/17 02/06/17 02/06/17 02/06/17 12:30 17:58 19:00 19:57 Temp 97.7 98.1 98.6 97.7 98.1 98.6 Pulse 100 95 91 Resp 16 20 17 B/P (MAP) 133/66 (88) 118/81 (93) 134/79 (97) Pulse Ox 100 97 100 100 O2 Delivery Room Air Room Air Room Air Room Air 02/06/17 02/06/17 02/06/17 02/06/17 20:00 20:10 20:48 21:48 Resp 20 18 O2 Delivery Room Air Room Air Room Air 02/06/17 02/07/17 02/07/17 02/07/17 22:54 03:00 07:00 07:30 Temp 98.8 98.7 98.4 98.8 98.7 98.4 Pulse 82 82 116 Resp 18 16 18 B/P (MAP) 112/71 (85) 113/70 (84) 121/69 (86) Pulse Ox 100 98 100 100 O2 Delivery Room Air Room Air Room Air Room Air 02/07/17 02/07/17 11:28 11:32 Temp 98.5 98.5 Pulse 88 Resp 18 B/P (MAP) 109/72 (84) Pulse Ox 95 O2 Delivery Room Air Room Air Intake and Output 02/06/17 02/06/17 02/07/17 15:00 23:00 07:00 Intake Total 700 ml Balance 700 ml JOSE SELLERS III, DO Feb 07, 2017 12:02
[2017-02-07 12:21] LABS: CHOLESTEROL/HDL RATIO 3.9
--- NOTE | 2017-02-07 12:48 | PDOC ---
Provider Note Provider Note [id number] dyspnea asthma acute bronchitis ? jhonathan see orders NICOLE LARA MD Feb 07, 2017 12:48
--- NOTE | 2017-02-07 13:22 | CONS ---
DATE OF CONSULTATION: 02/07/2017 I was asked to see this 26-year-old lady for shortness of breath, asthma and cough. HISTORY OF PRESENT ILLNESS: She has remote history of smoking. She has asthma. For the past few months, her asthma has not been under good control and she has to use her albuterol on a daily basis. She presented with increased shortness of breath and cough with yellow sputum production. She has gastroesophageal reflux symptoms. She has occasional nasal congestion. She also has had headache and blurry vision. Neurology was consulted. They ordered MRI. PAST MEDICAL HISTORY: Asthma, depression and seizure. ALLERGIES: DULOXETINE, SULFA AND TRIMETHOPRIM. MEDICATIONS: Currently, she is on DuoNeb q.i.d., Protonix, Celexa, Lovenox and gabapentin. SOCIAL HISTORY: Remote history of smoking. FAMILY HISTORY: Positive for asthma. REVIEW OF SYSTEMS: As mentioned as above. She does not know if she snores, but has excessive daytime sleepiness and has not had sleep study. Other systems are otherwise negative. PHYSICAL EXAMINATION: GENERAL: This is an obese lady. VITAL SIGNS: Her O2 saturation is 95%, respiratory rate 18, heart rate 88, blood pressure 109/72 and temperature 98.5. HEENT: Normocephalic, atraumatic. Pupils equal, round and reactive to light. Nose is clear. There is shallow oropharynx. NECK: There is no JVD, lymphadenopathy or thyromegaly. CARDIOVASCULAR: Regular rate and rhythm. PMI is nondisplaced. CHEST: Inspection is normal. LUNGS: Look clear to auscultation. ABDOMEN: Soft. Bowel sounds are good. There is no mass. EXTREMITIES: There is no edema. LYMPHATICS: There is no lymphadenopathy. NEUROLOGIC: Alert and oriented. LABORATORY DATA: I reviewed the following lab data: Chest x-ray does not show infiltrates. CT does not show pulmonary embolism or infiltrate. WBC 8.3, hemoglobin 11.9 and platelets 275,000. Sodium 139, potassium 4.4, chloride 105, CO2 of 28, glucose 99, BUN 8 and creatinine 0.7. IMPRESSION: 1. Dyspnea, multifactorial in etiology. 2. Asthma with mild acute exacerbation. 3. Acute bronchitis. 4. History of seizure disorder. 5. Headache. Workup is in progress by neurology. 6. Obesity, excessive daytime sleepiness, probable obstructive sleep apnea-hypopnea syndrome. 7. Gastroesophageal reflux disease. PLAN AND RECOMMENDATIONS: 1. Titrate FiO2 to keep O2 saturation 92%. 2. Bronchodilator. 3. Add Pulmicort. She may require systemic steroid. 4. Start Augmentin for bronchitis. 5. I agree with MRI. 6. I agree with echo. 7. I do recommend her to be started on Advair or Symbicort as an outpatient. Her asthma has not been under good control. She may use albuterol as p.r.n. basis. 8. I have discussed obstructive sleep apnea-hypopnea syndrome, the importance of diagnosis and treatment and if untreated, increased cardiovascular and [employer] morbidity or mortality. I do recommend a sleep study as an outpatient. 9. PFTs as an outpatient. 10. Lose weight. 11. Lovenox for DVT prophylaxis. 12. Protonix for stress ulcer prophylaxis. 13. The findings and recommendations were discussed with the patient and RN. I have answered all of the patient's questions. She understood and agreed to proceed with the plan. Thank you very much for allowing me to participate in care of this very nice lady. NICOLE LARA M.D. DR: MARIO ALBERTO/ida JOB#: [id number] / [id number]
--- NOTE | 2017-02-07 14:17 | PDOC2 ---
JETHRO FLORES 02/07/17 1417: GI CONSULT Reason For Consult: N/v HPI: HPI: 26 y/o female admitted w/ a variety of complaints including LUE numbness, CP, and SOA. GI consult re: n/v which has been ongoing intermittently for 1-2 months. Has seen PCP, tried Pepcid, Pepto, and Prilosec w/o improvement. Some associated periumbilical pain, now resolved. Also did have diarrhea, also resolved. H/o GERD (reflux and epigastric discomfort), previously tried PPIs ( x 2 years) w/o improvement. These symptoms are different. Perhaps has lost some weight due to decreased appetite. No bleeding. No previous EGD or colonoscopy. No previous abd imaging. Started on PPI here. Has tried Excedrin for migraines. PMH: PMH: asthma, depression, GERD, migraines, bipolar, ?seizure, thoracic outlet syndrome , migraines, bladder suspension FH: Family History: Other (father, brother, and son have "GI issues") Social History: Smoke: No ALCOHOL: none Drugs: None ROS: GEN: +chills HEENT: Denies blurred vision, sore throat CV: +CP RESP: +SOA +cough GI: Per HPI : Denies hematuria, dysuria ENDO: +weight loss NEURO: +LUE numbness MSK: Denies weakness, joint pain/swelling SKIN: Denies jaundice, pruritus Vitals: Vitals: Vital Signs Date Time Temp Pulse Resp B/P (MAP) Pulse Ox O2 Delivery O2 Flow Rate FiO2 02/07/17 11:32 Room Air 02/07/17 11:28 98.5 88 18 109/72 (84) 95 98.5 Labs: Labs: Laboratory Tests Test 02/06/17 18:35 02/07/17 05:50 Sodium Level 141 mmol/L (136-145) 139 mmol/L (136-145) Potassium Level 3.2 mmol/L (3.5-5.1) 4.4 mmol/L (3.5-5.1) Chloride Level 104 mmol/L (98-107) 105 mmol/L (98-107) Carbon Dioxide Level 28 mmol/L (21-32) 28 mmol/L (21-32) Anion Gap 9 (6-14) 6 (6-14) Blood Urea Nitrogen 10 mg/dL (7-20) 8 mg/dL (7-20) Creatinine 0.7 mg/dL (0.6-1.0) 0.7 mg/dL (0.6-1.0) Estimated GFR (Cockcroft-Gault) 120.6 120.6 Glucose Level 131 mg/dL (70-99) 99 mg/dL (70-99) Calcium Level 9.0 mg/dL (8.5-10.1) 8.9 mg/dL (8.5-10.1) White Blood Count 8.3 x10^3/uL (4.0-11.0) Red Blood Count 4.09 x10^6/uL (3.50-5.40) Hemoglobin 11.9 g/dL (12.0-15.5) Hematocrit 36.5 % (36.0-47.0) Mean Corpuscular Volume 89 fL (79-100) Mean Corpuscular Hemoglobin 29 pg (25-35) Mean Corpuscular Hemoglobin Concent 33 g/dL (31-37) Red Cell Distribution Width 14.2 % (11.5-14.5) Platelet Count 275 x10^3/uL (140-400) Neutrophils (%) (Auto) 59 % (31-73) Lymphocytes (%) (Auto) 31 % (24-48) Monocytes (%) (Auto) 8 % (0-9) Eosinophils (%) (Auto) 2 % (0-3) Basophils (%) (Auto) 1 % (0-3) Neutrophils # (Auto) 4.9 x10^3uL (1.8-7.7) Lymphocytes # (Auto) 2.5 x10^3/uL (1.0-4.8) Monocytes # (Auto) 0.6 x10^3/uL (0.0-1.1) Eosinophils # (Auto) 0.2 x10^3/uL (0.0-0.7) Basophils # (Auto) 0.0 x10^3/uL (0.0-0.2) Troponin I Quantitative < 0.017 ng/mL (0.000-0.055) Triglycerides Level 75 mg/dL (0-150) Cholesterol Level 154 mg/dL (0-200) LDL Cholesterol, Calculated 99 mg/dL (0-100) VLDL Cholesterol, Calculated 15 mg/dL (0-40) Non-HDL Cholesterol Calculated 114 mg/dL (0-129) HDL Cholesterol 40 mg/dL (40-60) Cholesterol/HDL Ratio 3.9 Thyroid Stimulating Hormone (TSH) 0.582 uIU/mL (0.358-3.74) Allergies: Coded Allergies: duloxetine (Verified Allergy, Intermediate, 02/07/17) sulfamethoxazole (Verified Allergy, Intermediate, 02/07/17) trimethoprim (Verified Allergy, Intermediate, 02/07/17) Medications: Current Medications Medications (Trade) Dose Ordered Sig/Hector Route PRN Reason Start Time Stop Time Status Last Admin Dose Admin Iohexol (Omnipaque 300 Mg/ml) 75 ml 1X ONCE IV 02/06/17 14:15 02/06/17 14:16 DC 02/06/17 14:46 Benzonatate (Tessalon Perle) 100 mg TID PO 02/06/17 21:00 02/07/17 12:40 Gabapentin (Neurontin) 100 mg TID PO 02/06/17 21:00 02/07/17 12:40 Pantoprazole Sodium (Protonix) 40 mg DAILYAC PO 02/06/17 18:30 02/07/17 08:17 Albuterol/ Ipratropium (Duoneb) 3 ml RTQID NEB 02/06/17 20:00 02/07/17 11:31 Guaifenesin (Mucinex) 600 mg BID PO 02/06/17 21:00 02/07/17 10:34 Enoxaparin Sodium (Lovenox 40mg Syringe) 40 mg Q12HR SQ 02/06/17 21:00 02/07/17 10:35 Potassium Chloride (Klor-Con) 40 meq 1X ONCE PO 02/06/17 18:15 02/06/17 18:17 DC 02/06/17 18:49 Ondansetron HCl (Zofran) 4 mg PRN Q6HRS PRN IV NAUSEA/VOMITING 02/06/17 20:15 02/07/17 08:18 Tramadol HCl (Ultram) 50 mg PRN Q6HRS PRN PO PAIN 02/06/17 20:15 02/06/17 20:48 Citalopram Hydrobromide (CeleXA) 20 mg DAILY PO 02/07/17 12:00 02/07/17 12:40 Imaging: Imaging: Chest CTA Impression: 1. No PE. 2. No pneumonia. CXR IMPRESSION: No acute cardiopulmonary abnormality is detected. PE: GEN: NAD HEENT: Atraumatic, PERRL LUNGS: soft wheezing HEART: RRR ABD: NABS, S/ND/NT EXTREMITY: No edema SKIN: No rashes, no jaundice NEURO/PSYCH: A & O 3 A/P: A/P: N/v -bothersome x 1-2 months, no improvement w/ H2 [place], PPI, Pepto -associated w/ periumbilical pain and diarrhea, now resolved H/o GERD -typically w/ epigastric discomfort and reflux, previously tried PPI w/o relief , no previous EGD Chest pain, SOA, asthma -per cardiology and neuro, echocardiogram today ?thoracic outlet syndrome, migraines -per neuro CRC screen -average risk -- Proceed per cardiology, pulm, and neuro. Agree w/ PPI. Will check abd US and HIDA r/o GB issue. TANMAY SINGH MD 02/07/17 1424: GI CONSULT Allergies: Coded Allergies: duloxetine (Verified Allergy, Intermediate, 02/07/17) sulfamethoxazole (Verified Allergy, Intermediate, 02/07/17) trimethoprim (Verified Allergy, Intermediate, 02/07/17) JETHRO FLORES Feb 07, 2017 14:17 TANMAY SINGH MD Feb 07, 2017 14:24
--- NOTE | 2017-02-07 14:32 | CARD ---
APPROVED REPORT EXAM: Two-dimensional and M-mode echocardiogram with Doppler and color Doppler. Other Information Quality : Average Rhythm : NSR INDICATION Dyspnea Chest Pain 2D DIMENSIONS RVDd2.9 (2.9-3.5cm)Left Atrium(2D)2.9 (1.6-4.0cm) IVSd0.9 (0.7-1.1cm)Aortic Root(2D)2.6 (2.0-3.7cm) LVDd4.7 (3.9-5.9cm)LVOT Diameter2.0 (1.8-2.4cm) PWd0.9 (0.7-1.1cm)LVDs3.0 (2.5-4.0cm) FS (%) 36.4 %SV67.3 ml LVEF(%)66.1 (>50%) Aortic Valve AoV Peak Sylvester.135.7cm/sAoV VTI21.4cm AO Peak GR.7.4mmHgLVOT Peak Sylvester.109.5cm/s LVOT VTI 17.85cmAO Mean GR.4mmHg RAÚL (VMAX)2.40le9YQN (VTI)2.54cm2 Mitral Valve MV E Ljjwcauk38.7cm/sMV DECEL SQAH682dm MV A Auiulscj42.0cm/sMV ZQC22hj E/A Ratio1.4MV A Ozmvtgww528pw MVA (PHT)3.85cm2 TDI E/Lateral E'6.9E/Medial E'8.3 Pulmonary Valve PV Peak Omutgdvb974.4cm/sPV Peak Grad.5mmHg RVOT VTI17.0cm Tricuspid Valve TR P. Szkrblkz385oy/sRAP FHVQBHCS6nmYi TR Peak Gr.03ycYtPHLB49uvOz Pulmonary Vein S1 Yaaqexuy05.4cm/sD2 Dkrryezg65.7cm/s LEFT VENTRICLE The left ventricle is normal size. There is normal left ventricular wall thickness. Left ventricle sy stolic function is normal. The Ejection Fraction is 65-70%. There is normal LV segmental wall motion. The left ventricular diastolic function and filling is normal for age. There is no ventricular septa l defect visualized. RIGHT VENTRICLE The right ventricle is normal size. The right ventricular systolic function is normal. ATRIA The left atrium size is normal. The right atrium size is normal. The interatrial septum is intact wit h no evidence for an atrial septal defect or patent foramen ovale as noted on 2-D or Doppler imaging. AORTIC VALVE The aortic valve is normal in structure and function. The aortic valve is trileaflet. Doppler and Col or Flow revealed no significant aortic regurgitation. There is no significant aortic valvular stenosi s. MITRAL VALVE The mitral valve is normal in structure and function. There is no mitral valve stenosis. Doppler and Color Flow revealed no mitral valve regurgitation noted. TRICUSPID VALVE The tricuspid valve is normal in structure and function. Doppler and Color Flow revealed trace tricus pid regurgitation. The PA pressure was estimated at 19 mmHg. There is no tricuspid valve stenosis. PULMONIC VALVE The pulmonic valve is not well visualized. Doppler and Color Flow revealed no pulmonic valvular regur gitation. There is no pulmonic valvular stenosis. GREAT VESSELS The aortic root is normal in size. The ascending aorta is normal in size. Normal pulmonary venous kasandra w (Doppler). The IVC is normal in size and collapses >50% with inspiration. PERICARDIAL EFFUSION There is no evidence of significant pericardial effusion. Critical Notification Critical Value: No <Conclusion> Left ventricle systolic function is normal. The Ejection Fraction is 65-70%. There is normal LV segmental wall motion. Trace tricuspid regurgitation. The PA pressure was estimated at 19 mmHg. There is no evidence of significant pericardial effusion.
[2017-02-07 15:07] VITALS: BP 112/67
[2017-02-07 19:00] VITALS: BP 115/84
[2017-02-07] MEDS: BUDESONIDE 0.5 MG/2 ML NEBU. NEB SCH (19:30)
[2017-02-07] MEDS: traMADol 50 MG TABLET PO PRN (20:44)
[2017-02-07 22:57] VITALS: BP 94/51
[2017-02-08 05:26] LABS: BASO % 0 % (0-3); EOS % 3 % (0-3); HEMOGLOBIN 11.8 g/dL (12.0-15.5); LYMPH % 41 % (24-48); MEAN CORPUSCULAR HEMOGLOBIN 30 pg (25-35); MEAN CORPUSCULAR HGB CONC 34 g/dL (31-37); MEAN CORPUSCULAR VOLUME 87 fL (79-100); MONO % 9 % (0-9); NEUT % 47 % (31-73); PLATELET COUNT 263 x10^3/uL (140-400); RED CELL DISTRIBUTION WIDTH 14.1 % (11.5-14.5); WHITE BLOOD COUNT 7.2 x10^3/uL (4.0-11.0)
[2017-02-08 05:42] LABS: CREATININE 0.7 mg/dL (0.6-1.0); GFR 120.6
[2017-02-08 07:00] VITALS: BP 108/66
[2017-02-08] MEDS: IPRATRPIUM/ALBUTEROL 0.5/2.5MG 3 ML NEBU. NEB SCH ×2 (07:36→11:44)
[2017-02-08] MEDS: BUDESONIDE 0.5 MG/2 ML NEBU. NEB SCH (07:36)
--- NOTE | 2017-02-08 07:55 | RAD ---
Ultrasound abdomen Indication: Upper abdominal pain, nausea and vomiting for 2 months. Back pain. Headache. Technique: Grayscale, color Doppler and spectral waveform ultrasound images of the abdomen obtained. Comparison: None Findings: Limited evaluation of pancreatic tail due to bowel gas. The proximal, mid and distal aorta measures 1.8 cm, 1.5 cm and 1.5 cm respectively. The liver measures 15 cm in craniocaudal dimension and is normal in echogenicity. Flow is seen within portal vein and hepatic vein. The right kidney measures 10 cm in length without evidence of hydronephrosis. No gallstones. Gallbladder wall measures 1.7 mm and is within normal limits without pericholecystic fluid. CBD measures 4 mm and is within normal limits. Spleen measures 9.2 cm and is within normal limits. The left kidney measures 10.4 cm in length without evidence of hydronephrosis. Impression: 1. No cholelithiasis. 2. No hydronephrosis. 3. No hepatosplenomegaly.
[2017-02-08] MEDS: GABAPENTIN 100 MG CAPSULE. PO SCH (09:00)
[2017-02-08] MEDS: BENZONATATE 100 MG CAPSULE. PO SCH (09:00)
--- NOTE | 2017-02-08 09:25 | RAD ---
MRI Brain without contrast History: Worsening chronic migraine headaches, vertigo, dizziness Technique: Multiplanar, multisequential noncontrast MR imaging was performed of the brain. Contrast: None Comparison: None Findings: There is no evidence of an acute infarct or cytotoxic edema. The ventricles, sulci, and cisterns are within normal limits in size and configuration. There is no significant midline shift, mass effect, or focal abnormal extra-axial fluid collection. There is no significant signal abnormality of the brain parenchyma. There is preservation of the major intracranial flow-voids at the skull base. The cerebellar tonsils are at the lower limits of normal in location. There is no significant abnormality of the pineal gland or pituitary gland. There is 1.2 cm complex mucous retention cyst or polyp of the left maxillary sinus. There is more focal opacification of posterior right ethmoid air cell. There is other mild paranasal sinus mucosal thickening. There is minimal fluid of the left mastoid air cells, right mastoid air cells aerated. There is preserved marrow signal of the clivus. Impression: 1. There is no significant intracranial abnormality. 2. There is mild paranasal sinus mucosal thickening, also complex mucous retention cyst versus polyp of the left maxillary sinus. Electronically signed by: Moe Smith MD (02/08/2017 9:22 AM) [id number]
--- NOTE | 2017-02-08 09:32 | PDOC ---
PULMONARY PROGRESS NOTES Subjective sob better, has cough, has aceves. has occ nasal congestion Vitals Vital Signs Date Time Temp Pulse Resp B/P (MAP) Pulse Ox O2 Delivery O2 Flow Rate FiO2 02/08/17 07:38 99 Room Air 02/08/17 07:00 98.4 87 20 108/66 (80) 98.4 ROS: No Nausea, No Chest Pain General: Alert, Oriented X4 HEENT: Other (nc at perrl shallow oropharynx nose inflamed mucosa) Lungs: Clear, Other (No acute respiratory distress) Cardiovascular: S1, S2 Abdomen: Soft, Non-tender Neuro Exam: Alert, Oriented Extremities: No Edema Skin: Warm Labs Laboratory Tests Test 02/06/17 12:01 02/06/17 12:30 02/06/17 13:25 02/06/17 18:35 Bedside Urine HCG, Qualitative Hcg negative (Negative) White Blood Count 10.7 x10^3/uL (4.0-11.0) Red Blood Count 4.47 x10^6/uL (3.50-5.40) Hemoglobin 13.0 g/dL (12.0-15.5) Hematocrit 39.6 % (36.0-47.0) Mean Corpuscular Volume 89 fL (79-100) Mean Corpuscular Hemoglobin 29 pg (25-35) Mean Corpuscular Hemoglobin Concent 33 g/dL (31-37) Red Cell Distribution Width 13.9 % (11.5-14.5) Platelet Count 306 x10^3/uL (140-400) Neutrophils (%) (Auto) 65 % (31-73) Lymphocytes (%) (Auto) 28 % (24-48) Monocytes (%) (Auto) 6 % (0-9) Eosinophils (%) (Auto) 1 % (0-3) Basophils (%) (Auto) 1 % (0-3) Neutrophils # (Auto) 7.0 x10^3uL (1.8-7.7) Lymphocytes # (Auto) 3.0 x10^3/uL (1.0-4.8) Monocytes # (Auto) 0.6 x10^3/uL (0.0-1.1) Eosinophils # (Auto) 0.1 x10^3/uL (0.0-0.7) Basophils # (Auto) 0.1 x10^3/uL (0.0-0.2) Sodium Level 139 mmol/L (136-145) 141 mmol/L (136-145) Potassium Level 2.8 mmol/L (3.5-5.1) 3.2 mmol/L (3.5-5.1) Chloride Level 102 mmol/L (98-107) 104 mmol/L (98-107) Carbon Dioxide Level 22 mmol/L (21-32) 28 mmol/L (21-32) Anion Gap 15 (6-14) 9 (6-14) Blood Urea Nitrogen 11 mg/dL (7-20) 10 mg/dL (7-20) Creatinine 0.8 mg/dL (0.6-1.0) 0.7 mg/dL (0.6-1.0) Estimated GFR (Cockcroft-Gault) 103.3 120.6 BUN/Creatinine Ratio 14 (6-20) Glucose Level 92 mg/dL (70-99) 131 mg/dL (70-99) Calcium Level 9.7 mg/dL (8.5-10.1) 9.0 mg/dL (8.5-10.1) Total Bilirubin 0.8 mg/dL (0.2-1.0) Aspartate Amino Transf (AST/SGOT) 8 U/L (15-37) Alanine Aminotransferase (ALT/SGPT) 6 U/L (14-59) Alkaline Phosphatase 71 U/L (46-116) Total Protein 7.8 g/dL (6.4-8.2) Albumin 4.0 g/dL (3.4-5.0) Albumin/Globulin Ratio 1.1 (1.0-1.7) D-Dimer (Santa) 1.66 ug/mlFEU (0.00-0.50) Test 02/07/17 05:50 02/08/17 04:15 White Blood Count 8.3 x10^3/uL (4.0-11.0) 7.2 x10^3/uL (4.0-11.0) Red Blood Count 4.09 x10^6/uL (3.50-5.40) 4.00 x10^6/uL (3.50-5.40) Hemoglobin 11.9 g/dL (12.0-15.5) 11.8 g/dL (12.0-15.5) Hematocrit 36.5 % (36.0-47.0) 35.0 % (36.0-47.0) Mean Corpuscular Volume 89 fL (79-100) 87 fL (79-100) Mean Corpuscular Hemoglobin 29 pg (25-35) 30 pg (25-35) Mean Corpuscular Hemoglobin Concent 33 g/dL (31-37) 34 g/dL (31-37) Red Cell Distribution Width 14.2 % (11.5-14.5) 14.1 % (11.5-14.5) Platelet Count 275 x10^3/uL (140-400) 263 x10^3/uL (140-400) Neutrophils (%) (Auto) 59 % (31-73) 47 % (31-73) Lymphocytes (%) (Auto) 31 % (24-48) 41 % (24-48) Monocytes (%) (Auto) 8 % (0-9) 9 % (0-9) Eosinophils (%) (Auto) 2 % (0-3) 3 % (0-3) Basophils (%) (Auto) 1 % (0-3) 0 % (0-3) Neutrophils # (Auto) 4.9 x10^3uL (1.8-7.7) 3.4 x10^3uL (1.8-7.7) Lymphocytes # (Auto) 2.5 x10^3/uL (1.0-4.8) 3.0 x10^3/uL (1.0-4.8) Monocytes # (Auto) 0.6 x10^3/uL (0.0-1.1) 0.6 x10^3/uL (0.0-1.1) Eosinophils # (Auto) 0.2 x10^3/uL (0.0-0.7) 0.2 x10^3/uL (0.0-0.7) Basophils # (Auto) 0.0 x10^3/uL (0.0-0.2) 0.0 x10^3/uL (0.0-0.2) Sodium Level 139 mmol/L (136-145) 140 mmol/L (136-145) Potassium Level 4.4 mmol/L (3.5-5.1) 4.0 mmol/L (3.5-5.1) Chloride Level 105 mmol/L (98-107) 104 mmol/L (98-107) Carbon Dioxide Level 28 mmol/L (21-32) 26 mmol/L (21-32) Anion Gap 6 (6-14) 10 (6-14) Blood Urea Nitrogen 8 mg/dL (7-20) 8 mg/dL (7-20) Creatinine 0.7 mg/dL (0.6-1.0) 0.7 mg/dL (0.6-1.0) Estimated GFR (Cockcroft-Gault) 120.6 120.6 Glucose Level 99 mg/dL (70-99) 87 mg/dL (70-99) Calcium Level 8.9 mg/dL (8.5-10.1) 9.0 mg/dL (8.5-10.1) Troponin I Quantitative < 0.017 ng/mL (0.000-0.055) Triglycerides Level 75 mg/dL (0-150) Cholesterol Level 154 mg/dL (0-200) LDL Cholesterol, Calculated 99 mg/dL (0-100) VLDL Cholesterol, Calculated 15 mg/dL (0-40) Non-HDL Cholesterol Calculated 114 mg/dL (0-129) HDL Cholesterol 40 mg/dL (40-60) Cholesterol/HDL Ratio 3.9 Thyroid Stimulating Hormone (TSH) 0.582 uIU/mL (0.358-3.74) Laboratory Tests Test 02/08/17 04:15 White Blood Count 7.2 x10^3/uL (4.0-11.0) Red Blood Count 4.00 x10^6/uL (3.50-5.40) Hemoglobin 11.8 g/dL (12.0-15.5) Hematocrit 35.0 % (36.0-47.0) Mean Corpuscular Volume 87 fL (79-100) Mean Corpuscular Hemoglobin 30 pg (25-35) Mean Corpuscular Hemoglobin Concent 34 g/dL (31-37) Red Cell Distribution Width 14.1 % (11.5-14.5) Platelet Count 263 x10^3/uL (140-400) Neutrophils (%) (Auto) 47 % (31-73) Lymphocytes (%) (Auto) 41 % (24-48) Monocytes (%) (Auto) 9 % (0-9) Eosinophils (%) (Auto) 3 % (0-3) Basophils (%) (Auto) 0 % (0-3) Neutrophils # (Auto) 3.4 x10^3uL (1.8-7.7) Lymphocytes # (Auto) 3.0 x10^3/uL (1.0-4.8) Monocytes # (Auto) 0.6 x10^3/uL (0.0-1.1) Eosinophils # (Auto) 0.2 x10^3/uL (0.0-0.7) Basophils # (Auto) 0.0 x10^3/uL (0.0-0.2) Sodium Level 140 mmol/L (136-145) Potassium Level 4.0 mmol/L (3.5-5.1) Chloride Level 104 mmol/L (98-107) Carbon Dioxide Level 26 mmol/L (21-32) Anion Gap 10 (6-14) Blood Urea Nitrogen 8 mg/dL (7-20) Creatinine 0.7 mg/dL (0.6-1.0) Estimated GFR (Cockcroft-Gault) 120.6 Glucose Level 87 mg/dL (70-99) Calcium Level 9.0 mg/dL (8.5-10.1) Medications Active Scripts Medications Dose Route/Sig Max Daily Dose Days Date Category Dose Instructions Proair Hfa Inhaler (Albuterol Sulfate) 8.5 Gm Hfa.aer.ad 1 Puff INH PRN Q6HRS PRN 01/30/17 Rx Prednisone 20 Mg Tablet 40 Mg PO DAILY 01/30/17 Rx Cephalexin 500 Mg Tablet 1 Tab PO BID 01/30/17 Rx Cephalexin 500 Mg Tablet 1 Tab PO BID 12/30/16 Rx Prednisone 50 Mg Tablet 1 Tab PO DAILY 12/30/16 Rx Tessalon Perle (Benzonatate) 100 Mg Capsule 1 Cap PO TID 12/30/16 Rx Proair Respiclick (Albuterol Sulfate) 90 Mcg Aer.pow.ba 1 Puff IH PRN Q6HRS PRN 12/30/16 Rx Hydroxyzine Hcl 25 Mg Tablet 1 Tab PO TID 10/13/16 Rx Triamcinolone Acetonide 0.1% Oint (Triamcinolone Acetonide) 15 Gm Oint...g. 1 Yessenia TP BID 10/13/16 Rx MIX WITH EUCERIN DIRECTED BY PHYSICIAN Ketoconazole 120 Ml Shampoo 1 Yessenia TP TWICE WEEKLY 10/13/16 Rx Keflex (Cephalexin) 500 Mg Capsule 1 Cap PO BID 07/16/16 Rx Benzonatate 200 Mg Capsule 1 Cap PO TID 04/30/16 Rx Gabapentin 100 Mg Capsule 100 Mg PO TID 08/25/15 Reported Prilosec (Omeprazole) 20 Mg Capsule.dr 20 Mg PO DAILY 08/25/15 Reported Hydroxyzine Hcl 10 Mg/5 Ml Syrup 10 Mg PO 08/25/15 Reported Naproxen 375 Mg Tablet 375 Mg PO 08/25/15 Reported Meclizine Hcl 12.5 Mg Tablet 12.5 Mg PO 08/25/15 Reported Comments echo reviewed. Left ventricle systolic function is normal. The Ejection Fraction is 65-70%. There is normal LV segmental wall motion. Trace tricuspid regurgitation. The PA pressure was estimated at 19 mmHg. There is no evidence of significant pericardial effusion. Impression . IMPRESSION: 1. Dyspnea, multifactorial in etiology. 2. Asthma with mild acute exacerbation. 3. Acute bronchitis. 4. History of seizure disorder. 5. Headache. Workup is in progress by neurology. 6. Obesity, excessive daytime sleepiness, probable obstructive sleep apnea-hypopnea syndrome. 7. Gastroesophageal reflux disease. Plan . PLAN AND RECOMMENDATIONS: 1. Titrate FiO2 to keep O2 saturation 92%. 2. Bronchodilator. 3. Pulmicort. She may require systemic steroid. 4. Augmentin for bronchitis. 5. fu MRI. 6. echo reviewed. 7. I do recommend her to be started on Advair or Symbicort as an outpatient. Her asthma has not been under good control. She may use albuterol as p.r.n. basis. 8. I have discussed obstructive sleep apnea-hypopnea syndrome, the importance of diagnosis and treatment and if untreated, increased cardiovascular and [employer] morbidity or mortality. I do recommend a sleep study as an outpatient. 9. PFTs as an outpatient. 10. Lose weight. 11. Lovenox for DVT prophylaxis. 12. Protonix for stress ulcer prophylaxis. 13. The findings and recommendations were discussed with the patient and RN. I have answered all of the patient's questions. She understood and agreed to proceed with the plan. NICOLE LARA MD Feb 08, 2017 09:32
[2017-02-08 11:00] VITALS: BP 115/72
--- NOTE | 2017-02-08 11:44 | PDOC ---
Subjective: Subjective: Feeling better. Some nausea earlier, now hungry - NPO for HIDA. Objective: Vital Signs: Vital Signs Date Time Temp Pulse Resp B/P (MAP) Pulse Ox O2 Delivery O2 Flow Rate FiO2 02/08/17 11:00 99.1 97 20 115/72 (86) 95 Room Air 99.1 Labs: Laboratory Tests Test 02/08/17 04:15 White Blood Count 7.2 x10^3/uL Red Blood Count 4.00 x10^6/uL Hemoglobin 11.8 g/dL Hematocrit 35.0 % Mean Corpuscular Volume 87 fL Mean Corpuscular Hemoglobin 30 pg Mean Corpuscular Hemoglobin Concent 34 g/dL Red Cell Distribution Width 14.1 % Platelet Count 263 x10^3/uL Neutrophils (%) (Auto) 47 % Lymphocytes (%) (Auto) 41 % Monocytes (%) (Auto) 9 % Eosinophils (%) (Auto) 3 % Basophils (%) (Auto) 0 % Neutrophils # (Auto) 3.4 x10^3uL Lymphocytes # (Auto) 3.0 x10^3/uL Monocytes # (Auto) 0.6 x10^3/uL Eosinophils # (Auto) 0.2 x10^3/uL Basophils # (Auto) 0.0 x10^3/uL Sodium Level 140 mmol/L Potassium Level 4.0 mmol/L Chloride Level 104 mmol/L Carbon Dioxide Level 26 mmol/L Anion Gap 10 Blood Urea Nitrogen 8 mg/dL Creatinine 0.7 mg/dL Estimated GFR (Cockcroft-Gault) 120.6 Glucose Level 87 mg/dL Calcium Level 9.0 mg/dL Imaging: Brain MRI 02/08/17 Impression: 1. There is no significant intracranial abnormality. 2. There is mild paranasal sinus mucosal thickening, also complex mucous retention cyst versus polyp of the left maxillary sinus. Abd US 02/07/17 Impression: 1. No cholelithiasis. 2. No hydronephrosis. 3. No hepatosplenomegaly. Echocardiogram 02/07/17 <Conclusion> Left ventricle systolic function is normal. The Ejection Fraction is 65-70%. There is normal LV segmental wall motion. Trace tricuspid regurgitation. The PA pressure was estimated at 19 mmHg. There is no evidence of significant pericardial effusion. PE: GEN: NAD LUNGS: clear anteriorly HEART: RRR ABD: S/ND/NT NEURO/PSYCH: A & O 3 A/P: Nausea -h/o GERD (previously w/ symptoms of epigastric discomfort and reflux - not nausea), on PPI, no previous EGD Chest pain, SOA/asthma -per cardio/pulm Headaches, dizziness -per neuro, brain MRI above -- US unrevealing, await HIDA. Note DC orders. JETHRO FLORES Feb 08, 2017 11:44
--- NOTE | 2017-02-08 12:00 | PDOC ---
PROGRESS NOTES Chief Complaint Chief Complaint SOB L sided chest pain L shoulder weakness Migraines Depression Bronchitis Chronic nausea/vomiting GERD History of Present Illness History of Present Illness Pt more talkative while laying in bed. Demeanor seemed to be more positive Vitals Vitals Vital Signs Date Time Temp Pulse Resp B/P (MAP) Pulse Ox O2 Delivery O2 Flow Rate FiO2 02/08/17 11:47 98 Room Air 02/08/17 11:00 99.1 97 20 115/72 (86) 99.1 Physical Exam General: Alert, Oriented X3, Cooperative, No acute distress Heart: Regular rate (SR), Normal S1, Normal S2, Other (VALORIE 2/6 systolic murmur ) Lungs: Clear, Other (No acute respiratory distress noted) Abdomen: Soft, Other (mild epigastric tenderness with palpation) Extremities: No cyanosis, No edema Skin: No rashes, No significant lesion Labs LABS Laboratory Tests Test 02/08/17 04:15 White Blood Count 7.2 x10^3/uL (4.0-11.0) Red Blood Count 4.00 x10^6/uL (3.50-5.40) Hemoglobin 11.8 g/dL (12.0-15.5) Hematocrit 35.0 % (36.0-47.0) Mean Corpuscular Volume 87 fL (79-100) Mean Corpuscular Hemoglobin 30 pg (25-35) Mean Corpuscular Hemoglobin Concent 34 g/dL (31-37) Red Cell Distribution Width 14.1 % (11.5-14.5) Platelet Count 263 x10^3/uL (140-400) Neutrophils (%) (Auto) 47 % (31-73) Lymphocytes (%) (Auto) 41 % (24-48) Monocytes (%) (Auto) 9 % (0-9) Eosinophils (%) (Auto) 3 % (0-3) Basophils (%) (Auto) 0 % (0-3) Neutrophils # (Auto) 3.4 x10^3uL (1.8-7.7) Lymphocytes # (Auto) 3.0 x10^3/uL (1.0-4.8) Monocytes # (Auto) 0.6 x10^3/uL (0.0-1.1) Eosinophils # (Auto) 0.2 x10^3/uL (0.0-0.7) Basophils # (Auto) 0.0 x10^3/uL (0.0-0.2) Sodium Level 140 mmol/L (136-145) Potassium Level 4.0 mmol/L (3.5-5.1) Chloride Level 104 mmol/L (98-107) Carbon Dioxide Level 26 mmol/L (21-32) Anion Gap 10 (6-14) Blood Urea Nitrogen 8 mg/dL (7-20) Creatinine 0.7 mg/dL (0.6-1.0) Estimated GFR (Cockcroft-Gault) 120.6 Glucose Level 87 mg/dL (70-99) Calcium Level 9.0 mg/dL (8.5-10.1) Review of Systems Review of Systems C/o hunger Resolving abdominal pain Assessment and Plan Assessmemt and Plan 1. SOB/bronchitis: pulm consulted 2. Chest pain: cardio consulted. 3. Blurry vision: consulted neuro. Migraines controlled w/ meds 4. Hypokalemia: continue to monitor levels 5. Depression: follow-up w/ PCP regarding depression 6. GERD: d/c if ok w/ GI Problems: Comment Review of Relevant I have reviewed the following items elizabeth (where applicable) has been applied. Labs Laboratory Tests Test 02/06/17 12:01 02/06/17 12:30 02/06/17 13:25 02/06/17 18:35 Bedside Urine HCG, Qualitative Hcg negative (Negative) White Blood Count 10.7 x10^3/uL (4.0-11.0) Red Blood Count 4.47 x10^6/uL (3.50-5.40) Hemoglobin 13.0 g/dL (12.0-15.5) Hematocrit 39.6 % (36.0-47.0) Mean Corpuscular Volume 89 fL (79-100) Mean Corpuscular Hemoglobin 29 pg (25-35) Mean Corpuscular Hemoglobin Concent 33 g/dL (31-37) Red Cell Distribution Width 13.9 % (11.5-14.5) Platelet Count 306 x10^3/uL (140-400) Neutrophils (%) (Auto) 65 % (31-73) Lymphocytes (%) (Auto) 28 % (24-48) Monocytes (%) (Auto) 6 % (0-9) Eosinophils (%) (Auto) 1 % (0-3) Basophils (%) (Auto) 1 % (0-3) Neutrophils # (Auto) 7.0 x10^3uL (1.8-7.7) Lymphocytes # (Auto) 3.0 x10^3/uL (1.0-4.8) Monocytes # (Auto) 0.6 x10^3/uL (0.0-1.1) Eosinophils # (Auto) 0.1 x10^3/uL (0.0-0.7) Basophils # (Auto) 0.1 x10^3/uL (0.0-0.2) Sodium Level 139 mmol/L (136-145) 141 mmol/L (136-145) Potassium Level 2.8 mmol/L (3.5-5.1) 3.2 mmol/L (3.5-5.1) Chloride Level 102 mmol/L (98-107) 104 mmol/L (98-107) Carbon Dioxide Level 22 mmol/L (21-32) 28 mmol/L (21-32) Anion Gap 15 (6-14) 9 (6-14) Blood Urea Nitrogen 11 mg/dL (7-20) 10 mg/dL (7-20) Creatinine 0.8 mg/dL (0.6-1.0) 0.7 mg/dL (0.6-1.0) Estimated GFR (Cockcroft-Gault) 103.3 120.6 BUN/Creatinine Ratio 14 (6-20) Glucose Level 92 mg/dL (70-99) 131 mg/dL (70-99) Calcium Level 9.7 mg/dL (8.5-10.1) 9.0 mg/dL (8.5-10.1) Total Bilirubin 0.8 mg/dL (0.2-1.0) Aspartate Amino Transf (AST/SGOT) 8 U/L (15-37) Alanine Aminotransferase (ALT/SGPT) 6 U/L (14-59) Alkaline Phosphatase 71 U/L (46-116) Total Protein 7.8 g/dL (6.4-8.2) Albumin 4.0 g/dL (3.4-5.0) Albumin/Globulin Ratio 1.1 (1.0-1.7) D-Dimer (Santa) 1.66 ug/mlFEU (0.00-0.50) Test 02/07/17 05:50 02/08/17 04:15 White Blood Count 8.3 x10^3/uL (4.0-11.0) 7.2 x10^3/uL (4.0-11.0) Red Blood Count 4.09 x10^6/uL (3.50-5.40) 4.00 x10^6/uL (3.50-5.40) Hemoglobin 11.9 g/dL (12.0-15.5) 11.8 g/dL (12.0-15.5) Hematocrit 36.5 % (36.0-47.0) 35.0 % (36.0-47.0) Mean Corpuscular Volume 89 fL (79-100) 87 fL (79-100) Mean Corpuscular Hemoglobin 29 pg (25-35) 30 pg (25-35) Mean Corpuscular Hemoglobin Concent 33 g/dL (31-37) 34 g/dL (31-37) Red Cell Distribution Width 14.2 % (11.5-14.5) 14.1 % (11.5-14.5) Platelet Count 275 x10^3/uL (140-400) 263 x10^3/uL (140-400) Neutrophils (%) (Auto) 59 % (31-73) 47 % (31-73) Lymphocytes (%) (Auto) 31 % (24-48) 41 % (24-48) Monocytes (%) (Auto) 8 % (0-9) 9 % (0-9) Eosinophils (%) (Auto) 2 % (0-3) 3 % (0-3) Basophils (%) (Auto) 1 % (0-3) 0 % (0-3) Neutrophils # (Auto) 4.9 x10^3uL (1.8-7.7) 3.4 x10^3uL (1.8-7.7) Lymphocytes # (Auto) 2.5 x10^3/uL (1.0-4.8) 3.0 x10^3/uL (1.0-4.8) Monocytes # (Auto) 0.6 x10^3/uL (0.0-1.1) 0.6 x10^3/uL (0.0-1.1) Eosinophils # (Auto) 0.2 x10^3/uL (0.0-0.7) 0.2 x10^3/uL (0.0-0.7) Basophils # (Auto) 0.0 x10^3/uL (0.0-0.2) 0.0 x10^3/uL (0.0-0.2) Sodium Level 139 mmol/L (136-145) 140 mmol/L (136-145) Potassium Level 4.4 mmol/L (3.5-5.1) 4.0 mmol/L (3.5-5.1) Chloride Level 105 mmol/L (98-107) 104 mmol/L (98-107) Carbon Dioxide Level 28 mmol/L (21-32) 26 mmol/L (21-32) Anion Gap 6 (6-14) 10 (6-14) Blood Urea Nitrogen 8 mg/dL (7-20) 8 mg/dL (7-20) Creatinine 0.7 mg/dL (0.6-1.0) 0.7 mg/dL (0.6-1.0) Estimated GFR (Cockcroft-Gault) 120.6 120.6 Glucose Level 99 mg/dL (70-99) 87 mg/dL (70-99) Calcium Level 8.9 mg/dL (8.5-10.1) 9.0 mg/dL (8.5-10.1) Troponin I Quantitative < 0.017 ng/mL (0.000-0.055) Triglycerides Level 75 mg/dL (0-150) Cholesterol Level 154 mg/dL (0-200) LDL Cholesterol, Calculated 99 mg/dL (0-100) VLDL Cholesterol, Calculated 15 mg/dL (0-40) Non-HDL Cholesterol Calculated 114 mg/dL (0-129) HDL Cholesterol 40 mg/dL (40-60) Cholesterol/HDL Ratio 3.9 Thyroid Stimulating Hormone (TSH) 0.582 uIU/mL (0.358-3.74) Laboratory Tests Test 02/08/17 04:15 White Blood Count 7.2 x10^3/uL (4.0-11.0) Red Blood Count 4.00 x10^6/uL (3.50-5.40) Hemoglobin 11.8 g/dL (12.0-15.5) Hematocrit 35.0 % (36.0-47.0) Mean Corpuscular Volume 87 fL (79-100) Mean Corpuscular Hemoglobin 30 pg (25-35) Mean Corpuscular Hemoglobin Concent 34 g/dL (31-37) Red Cell Distribution Width 14.1 % (11.5-14.5) Platelet Count 263 x10^3/uL (140-400) Neutrophils (%) (Auto) 47 % (31-73) Lymphocytes (%) (Auto) 41 % (24-48) Monocytes (%) (Auto) 9 % (0-9) Eosinophils (%) (Auto) 3 % (0-3) Basophils (%) (Auto) 0 % (0-3) Neutrophils # (Auto) 3.4 x10^3uL (1.8-7.7) Lymphocytes # (Auto) 3.0 x10^3/uL (1.0-4.8) Monocytes # (Auto) 0.6 x10^3/uL (0.0-1.1) Eosinophils # (Auto) 0.2 x10^3/uL (0.0-0.7) Basophils # (Auto) 0.0 x10^3/uL (0.0-0.2) Sodium Level 140 mmol/L (136-145) Potassium Level 4.0 mmol/L (3.5-5.1) Chloride Level 104 mmol/L (98-107) Carbon Dioxide Level 26 mmol/L (21-32) Anion Gap 10 (6-14) Blood Urea Nitrogen 8 mg/dL (7-20) Creatinine 0.7 mg/dL (0.6-1.0) Estimated GFR (Cockcroft-Gault) 120.6 Glucose Level 87 mg/dL (70-99) Calcium Level 9.0 mg/dL (8.5-10.1) Medications Current Medications Potassium Chloride (Klor-Con) 40 meq 1X ONCE PO Last administered on 13:48; Start 02/06/17 at 13:30; Stop 02/06/17 at 13:31; Status DC Iohexol (Omnipaque 300 Mg/ml) 75 ml 1X ONCE IV Last administered on 02/06/17 14:46; Start 02/06/17 at 14:15; Stop 02/06/17 at 14:16; Status DC Info (Do NOT chart on this entry -- for MONITORING) 1 each PRN DAILY PRN MC SEE COMMENTS; Start 02/06/17 at 14:15; Stop 02/08/17 at 14:14 Albuterol Sulfate (Ventolin Neb Soln) 2.5 mg PRN Q6HRS PRN NEB wheezing; Start 02/06/17 at 16:00; Stop 02/06/17 at 18:12; Status DC Benzonatate (Tessalon Perle) 100 mg TID PO Last administered on 02/07/17 20:43 ; Start 02/06/17 at 21:00 Gabapentin (Neurontin) 100 mg TID PO Last administered on 02/07/17 20:44; Start 02/06/17 at 21:00 Hydroxyzine Pamoate (Vistaril) 25 mg PRN TID PRN PO ITCHING; Start 02/06/17 at 18:15 Pantoprazole Sodium (Protonix) 40 mg DAILYAC PO Last administered on 02/07/17 08:17; Start 02/06/17 at 18:30 Albuterol/ Ipratropium (Duoneb) 3 ml RTQID NEB Last administered on 02/08/17 11:44; Start 02/06/17 at 20:00 Albuterol Sulfate (Ventolin Neb Soln) 2.5 mg PRN Q2HR PRN NEB SHORTNESS OF BREATH; Start 02/06/17 at 18:15 Guaifenesin (Mucinex) 600 mg BID PO Last administered on 02/07/17 20:43; Start 02/06/17 at 21:00 Enoxaparin Sodium (Lovenox 40mg Syringe) 40 mg Q12HR SQ Last administered on 20:43; Start 02/06/17 at 21:00 Potassium Chloride (Klor-Con) 40 meq 1X ONCE PO Last administered on 18:49; Start 02/06/17 at 18:15; Stop 02/06/17 at 18:17; Status DC Acetaminophen (Tylenol) 650 mg PRN Q6HRS PRN PO FEVER Last administered on 02/07 14:17; Start 02/06/17 at 20:15 Ondansetron HCl (Zofran) 4 mg PRN Q6HRS PRN IV NAUSEA/VOMITING Last administered on 02/07/17 08:18; Start 02/06/17 at 20:15 Morphine Sulfate 2 mg PRN Q2HR PRN IV PAIN; Start 02/06/17 at 20:15 Tramadol HCl (Ultram) 50 mg PRN Q6HRS PRN PO PAIN Last administered on 20:44; Start 02/06/17 at 20:15 Hydralazine HCl (Apresoline) 10 mg PRN Q4HRS PRN IVP ELEVATED BP, SEE COMMENTS ; Start 02/06/17 at 20:15 Docusate Sodium (Colace) 100 mg PRN DAILY PRN PO CONSTIPATION; Start 02/06/17 at 20:15 Citalopram Hydrobromide (CeleXA) 20 mg DAILY PO Last administered on 02/07/17 12:40; Start 02/07/17 at 12:00 Budesonide (Pulmicort) 0.5 mg RTBID NEB Last administered on 02/08/17 07:36; Start 02/07/17 at 13:00 Active Scripts Active Proair Hfa Inhaler (Albuterol Sulfate) 8.5 Gm Hfa.aer.ad 1 Puff INH PRN Q6HRS PRN Prednisone 20 Mg Tablet 40 Mg PO DAILY Cephalexin 500 Mg Tablet 1 Tab PO BID Cephalexin 500 Mg Tablet 1 Tab PO BID Prednisone 50 Mg Tablet 1 Tab PO DAILY Tessalon Perle (Benzonatate) 100 Mg Capsule 1 Cap PO TID Proair Respiclick (Albuterol Sulfate) 90 Mcg Aer.pow.ba 1 Puff IH PRN Q6HRS PRN Hydroxyzine Hcl 25 Mg Tablet 1 Tab PO TID Triamcinolone Acetonide 0.1% Oint (Triamcinolone Acetonide) 15 Gm Oint...g. 1 Yessenia TP BID MIX WITH EUCERIN DIRECTED BY PHYSICIAN Ketoconazole 120 Ml Shampoo 1 Yessenia TP TWICE WEEKLY Keflex (Cephalexin) 500 Mg Capsule 1 Cap PO BID Benzonatate 200 Mg Capsule 1 Cap PO TID Reported Gabapentin 100 Mg Capsule 100 Mg PO TID Prilosec (Omeprazole) 20 Mg Capsule.dr 20 Mg PO DAILY Hydroxyzine Hcl 10 Mg/5 Ml Syrup 10 Mg PO Naproxen 375 Mg Tablet 375 Mg PO Meclizine Hcl 12.5 Mg Tablet 12.5 Mg PO Vitals/I & O Vital Sign - Last 24 Hours 02/07/17 02/07/17 02/07/17 02/07/17 15:07 15:53 19:00 19:10 Temp 98.8 98.4 98.8 98.4 Pulse 86 83 Resp 18 18 B/P (MAP) 112/67 (82) 115/84 (94) Pulse Ox 98 100 O2 Delivery Room Air Room Air Room Air Room Air 02/07/17 02/07/17 02/07/17 02/07/17 19:13 20:00 20:44 21:44 Resp 20 18 O2 Delivery Room Air Room Air Room Air Room Air 02/07/17 02/08/17 02/08/17 02/08/17 22:57 07:00 07:38 11:00 Temp 98.6 98.4 99.1 98.6 98.4 99.1 Pulse 94 87 97 Resp 17 20 20 B/P (MAP) 94/51 (65) 108/66 (80) 115/72 (86) Pulse Ox 100 98 99 95 O2 Delivery Room Air Room Air Room Air Room Air 02/08/17 11:47 Pulse Ox 98 O2 Delivery Room Air Intake and Output 02/07/17 02/07/17 02/08/17 15:00 23:00 07:00 Intake Total 118 ml Balance 118 ml JOSE SELLERS III DO Feb 08, 2017 12:00
--- NOTE | 2017-02-08 12:17 | PDOC ---
PROGRESS NOTES Assessment Problems Medical Problems: (1) Hypokalemia Status: Acute (2) Wheezing Status: Acute Most likely this is migraines with migraine-associated dizziness Very poor historian, now pulmonary says that she has a history of seizures. Consider somatization disorder. Note essentially negative cardiac, pulmonary, and G.I. workups Plan Citalopram Follow-up with me in 4-6 weeks. Objective Vital Signs Date Time Temp Pulse Resp B/P (MAP) Pulse Ox O2 Delivery O2 Flow Rate FiO2 02/08/17 11:47 98 Room Air 02/08/17 11:00 99.1 97 20 115/72 (86) 99.1 Intake and Output 02/08/17 06:59 Intake Total 118 ml Balance 118 ml Intake Oral 118 ml # Voids 7 PHYSICAL EXAM Physical Exam: Alert. Oriented to time, place and person. PERRL. EOMI. CN: no focal findings. Muscle tone: normal. Muscle strength: 5/5 DTR: 2+ Plantar reflex: flexor Gait: not examined in bed. Sensory exam: no abnormal findings. No cerebellar signs elicited. Review of Relevant I have reviewed the following items elizabeth (where applicable) has been applied. Labs Laboratory Tests Test 02/06/17 12:30 02/06/17 13:25 02/06/17 18:35 02/07/17 05:50 White Blood Count 10.7 x10^3/uL (4.0-11.0) 8.3 x10^3/uL (4.0-11.0) Red Blood Count 4.47 x10^6/uL (3.50-5.40) 4.09 x10^6/uL (3.50-5.40) Hemoglobin 13.0 g/dL (12.0-15.5) 11.9 g/dL (12.0-15.5) Hematocrit 39.6 % (36.0-47.0) 36.5 % (36.0-47.0) Mean Corpuscular Volume 89 fL (79-100) 89 fL (79-100) Mean Corpuscular Hemoglobin 29 pg (25-35) 29 pg (25-35) Mean Corpuscular Hemoglobin Concent 33 g/dL (31-37) 33 g/dL (31-37) Red Cell Distribution Width 13.9 % (11.5-14.5) 14.2 % (11.5-14.5) Platelet Count 306 x10^3/uL (140-400) 275 x10^3/uL (140-400) Neutrophils (%) (Auto) 65 % (31-73) 59 % (31-73) Lymphocytes (%) (Auto) 28 % (24-48) 31 % (24-48) Monocytes (%) (Auto) 6 % (0-9) 8 % (0-9) Eosinophils (%) (Auto) 1 % (0-3) 2 % (0-3) Basophils (%) (Auto) 1 % (0-3) 1 % (0-3) Neutrophils # (Auto) 7.0 x10^3uL (1.8-7.7) 4.9 x10^3uL (1.8-7.7) Lymphocytes # (Auto) 3.0 x10^3/uL (1.0-4.8) 2.5 x10^3/uL (1.0-4.8) Monocytes # (Auto) 0.6 x10^3/uL (0.0-1.1) 0.6 x10^3/uL (0.0-1.1) Eosinophils # (Auto) 0.1 x10^3/uL (0.0-0.7) 0.2 x10^3/uL (0.0-0.7) Basophils # (Auto) 0.1 x10^3/uL (0.0-0.2) 0.0 x10^3/uL (0.0-0.2) Sodium Level 139 mmol/L (136-145) 141 mmol/L (136-145) 139 mmol/L (136-145) Potassium Level 2.8 mmol/L (3.5-5.1) 3.2 mmol/L (3.5-5.1) 4.4 mmol/L (3.5-5.1) Chloride Level 102 mmol/L (98-107) 104 mmol/L (98-107) 105 mmol/L (98-107) Carbon Dioxide Level 22 mmol/L (21-32) 28 mmol/L (21-32) 28 mmol/L (21-32) Anion Gap 15 (6-14) 9 (6-14) 6 (6-14) Blood Urea Nitrogen 11 mg/dL (7-20) 10 mg/dL (7-20) 8 mg/dL (7-20) Creatinine 0.8 mg/dL (0.6-1.0) 0.7 mg/dL (0.6-1.0) 0.7 mg/dL (0.6-1.0) Estimated GFR (Cockcroft-Gault) 103.3 120.6 120.6 BUN/Creatinine Ratio 14 (6-20) Glucose Level 92 mg/dL (70-99) 131 mg/dL (70-99) 99 mg/dL (70-99) Calcium Level 9.7 mg/dL (8.5-10.1) 9.0 mg/dL (8.5-10.1) 8.9 mg/dL (8.5-10.1) Total Bilirubin 0.8 mg/dL (0.2-1.0) Aspartate Amino Transf (AST/SGOT) 8 U/L (15-37) Alanine Aminotransferase (ALT/SGPT) 6 U/L (14-59) Alkaline Phosphatase 71 U/L (46-116) Total Protein 7.8 g/dL (6.4-8.2) Albumin 4.0 g/dL (3.4-5.0) Albumin/Globulin Ratio 1.1 (1.0-1.7) D-Dimer (Santa) 1.66 ug/mlFEU (0.00-0.50) Troponin I Quantitative < 0.017 ng/mL (0.000-0.055) Triglycerides Level 75 mg/dL (0-150) Cholesterol Level 154 mg/dL (0-200) LDL Cholesterol, Calculated 99 mg/dL (0-100) VLDL Cholesterol, Calculated 15 mg/dL (0-40) Non-HDL Cholesterol Calculated 114 mg/dL (0-129) HDL Cholesterol 40 mg/dL (40-60) Cholesterol/HDL Ratio 3.9 Thyroid Stimulating Hormone (TSH) 0.582 uIU/mL (0.358-3.74) Test 02/08/17 04:15 White Blood Count 7.2 x10^3/uL (4.0-11.0) Red Blood Count 4.00 x10^6/uL (3.50-5.40) Hemoglobin 11.8 g/dL (12.0-15.5) Hematocrit 35.0 % (36.0-47.0) Mean Corpuscular Volume 87 fL (79-100) Mean Corpuscular Hemoglobin 30 pg (25-35) Mean Corpuscular Hemoglobin Concent 34 g/dL (31-37) Red Cell Distribution Width 14.1 % (11.5-14.5) Platelet Count 263 x10^3/uL (140-400) Neutrophils (%) (Auto) 47 % (31-73) Lymphocytes (%) (Auto) 41 % (24-48) Monocytes (%) (Auto) 9 % (0-9) Eosinophils (%) (Auto) 3 % (0-3) Basophils (%) (Auto) 0 % (0-3) Neutrophils # (Auto) 3.4 x10^3uL (1.8-7.7) Lymphocytes # (Auto) 3.0 x10^3/uL (1.0-4.8) Monocytes # (Auto) 0.6 x10^3/uL (0.0-1.1) Eosinophils # (Auto) 0.2 x10^3/uL (0.0-0.7) Basophils # (Auto) 0.0 x10^3/uL (0.0-0.2) Sodium Level 140 mmol/L (136-145) Potassium Level 4.0 mmol/L (3.5-5.1) Chloride Level 104 mmol/L (98-107) Carbon Dioxide Level 26 mmol/L (21-32) Anion Gap 10 (6-14) Blood Urea Nitrogen 8 mg/dL (7-20) Creatinine 0.7 mg/dL (0.6-1.0) Estimated GFR (Cockcroft-Gault) 120.6 Glucose Level 87 mg/dL (70-99) Calcium Level 9.0 mg/dL (8.5-10.1) Laboratory Tests Test 02/08/17 04:15 White Blood Count 7.2 x10^3/uL (4.0-11.0) Red Blood Count 4.00 x10^6/uL (3.50-5.40) Hemoglobin 11.8 g/dL (12.0-15.5) Hematocrit 35.0 % (36.0-47.0) Mean Corpuscular Volume 87 fL (79-100) Mean Corpuscular Hemoglobin 30 pg (25-35) Mean Corpuscular Hemoglobin Concent 34 g/dL (31-37) Red Cell Distribution Width 14.1 % (11.5-14.5) Platelet Count 263 x10^3/uL (140-400) Neutrophils (%) (Auto) 47 % (31-73) Lymphocytes (%) (Auto) 41 % (24-48) Monocytes (%) (Auto) 9 % (0-9) Eosinophils (%) (Auto) 3 % (0-3) Basophils (%) (Auto) 0 % (0-3) Neutrophils # (Auto) 3.4 x10^3uL (1.8-7.7) Lymphocytes # (Auto) 3.0 x10^3/uL (1.0-4.8) Monocytes # (Auto) 0.6 x10^3/uL (0.0-1.1) Eosinophils # (Auto) 0.2 x10^3/uL (0.0-0.7) Basophils # (Auto) 0.0 x10^3/uL (0.0-0.2) Sodium Level 140 mmol/L (136-145) Potassium Level 4.0 mmol/L (3.5-5.1) Chloride Level 104 mmol/L (98-107) Carbon Dioxide Level 26 mmol/L (21-32) Anion Gap 10 (6-14) Blood Urea Nitrogen 8 mg/dL (7-20) Creatinine 0.7 mg/dL (0.6-1.0) Estimated GFR (Cockcroft-Gault) 120.6 Glucose Level 87 mg/dL (70-99) Calcium Level 9.0 mg/dL (8.5-10.1) Medications Current Medications Potassium Chloride (Klor-Con) 40 meq 1X ONCE PO Last administered on 13:48; Start 02/06/17 at 13:30; Stop 02/06/17 at 13:31; Status DC Iohexol (Omnipaque 300 Mg/ml) 75 ml 1X ONCE IV Last administered on 02/06/17 14:46; Start 02/06/17 at 14:15; Stop 02/06/17 at 14:16; Status DC Info (Do NOT chart on this entry -- for MONITORING) 1 each PRN DAILY PRN MC SEE COMMENTS; Start 02/06/17 at 14:15; Stop 02/08/17 at 14:14 Albuterol Sulfate (Ventolin Neb Soln) 2.5 mg PRN Q6HRS PRN NEB wheezing; Start 02/06/17 at 16:00; Stop 02/06/17 at 18:12; Status DC Benzonatate (Tessalon Perle) 100 mg TID PO Last administered on 02/07/17 20:43 ; Start 02/06/17 at 21:00 Gabapentin (Neurontin) 100 mg TID PO Last administered on 02/07/17 20:44; Start 02/06/17 at 21:00 Hydroxyzine Pamoate (Vistaril) 25 mg PRN TID PRN PO ITCHING; Start 02/06/17 at 18:15 Pantoprazole Sodium (Protonix) 40 mg DAILYAC PO Last administered on 02/07/17 08:17; Start 02/06/17 at 18:30 Albuterol/ Ipratropium (Duoneb) 3 ml RTQID NEB Last administered on 02/08/17 11:44; Start 02/06/17 at 20:00 Albuterol Sulfate (Ventolin Neb Soln) 2.5 mg PRN Q2HR PRN NEB SHORTNESS OF BREATH; Start 02/06/17 at 18:15 Guaifenesin (Mucinex) 600 mg BID PO Last administered on 02/07/17 20:43; Start 02/06/17 at 21:00 Enoxaparin Sodium (Lovenox 40mg Syringe) 40 mg Q12HR SQ Last administered on 20:43; Start 02/06/17 at 21:00 Potassium Chloride (Klor-Con) 40 meq 1X ONCE PO Last administered on 18:49; Start 02/06/17 at 18:15; Stop 02/06/17 at 18:17; Status DC Acetaminophen (Tylenol) 650 mg PRN Q6HRS PRN PO FEVER Last administered on 02/07 14:17; Start 02/06/17 at 20:15 Ondansetron HCl (Zofran) 4 mg PRN Q6HRS PRN IV NAUSEA/VOMITING Last administered on 02/07/17 08:18; Start 02/06/17 at 20:15 Morphine Sulfate 2 mg PRN Q2HR PRN IV PAIN; Start 02/06/17 at 20:15 Tramadol HCl (Ultram) 50 mg PRN Q6HRS PRN PO PAIN Last administered on 20:44; Start 02/06/17 at 20:15 Hydralazine HCl (Apresoline) 10 mg PRN Q4HRS PRN IVP ELEVATED BP, SEE COMMENTS ; Start 02/06/17 at 20:15 Docusate Sodium (Colace) 100 mg PRN DAILY PRN PO CONSTIPATION; Start 02/06/17 at 20:15 Citalopram Hydrobromide (CeleXA) 20 mg DAILY PO Last administered on 02/07/17 12:40; Start 02/07/17 at 12:00 Budesonide (Pulmicort) 0.5 mg RTBID NEB Last administered on 02/08/17 07:36; Start 02/07/17 at 13:00 Active Scripts Active Proair Hfa Inhaler (Albuterol Sulfate) 8.5 Gm Hfa.aer.ad 1 Puff INH PRN Q6HRS PRN Prednisone 20 Mg Tablet 40 Mg PO DAILY Cephalexin 500 Mg Tablet 1 Tab PO BID Cephalexin 500 Mg Tablet 1 Tab PO BID Prednisone 50 Mg Tablet 1 Tab PO DAILY Tessalon Perle (Benzonatate) 100 Mg Capsule 1 Cap PO TID Proair Respiclick (Albuterol Sulfate) 90 Mcg Aer.pow.ba 1 Puff IH PRN Q6HRS PRN Hydroxyzine Hcl 25 Mg Tablet 1 Tab PO TID Triamcinolone Acetonide 0.1% Oint (Triamcinolone Acetonide) 15 Gm Oint...g. 1 Yessenia TP BID MIX WITH EUCERIN DIRECTED BY PHYSICIAN Ketoconazole 120 Ml Shampoo 1 Yessenia TP TWICE WEEKLY Keflex (Cephalexin) 500 Mg Capsule 1 Cap PO BID Benzonatate 200 Mg Capsule 1 Cap PO TID Reported Gabapentin 100 Mg Capsule 100 Mg PO TID Prilosec (Omeprazole) 20 Mg Capsule.dr 20 Mg PO DAILY Hydroxyzine Hcl 10 Mg/5 Ml Syrup 10 Mg PO Naproxen 375 Mg Tablet 375 Mg PO Meclizine Hcl 12.5 Mg Tablet 12.5 Mg PO Vitals/I & O Vital Sign - Last 24 Hours 02/07/17 02/07/17 02/07/17 02/07/17 15:07 15:53 19:00 19:10 Temp 98.8 98.4 98.8 98.4 Pulse 86 83 Resp 18 18 B/P (MAP) 112/67 (82) 115/84 (94) Pulse Ox 98 100 O2 Delivery Room Air Room Air Room Air Room Air 02/07/17 02/07/17 02/07/17 02/07/17 19:13 20:00 20:44 21:44 Resp 20 18 O2 Delivery Room Air Room Air Room Air Room Air 02/07/17 02/08/17 02/08/17 02/08/17 22:57 07:00 07:38 11:00 Temp 98.6 98.4 99.1 98.6 98.4 99.1 Pulse 94 87 97 Resp 17 20 20 B/P (MAP) 94/51 (65) 108/66 (80) 115/72 (86) Pulse Ox 100 98 99 95 O2 Delivery Room Air Room Air Room Air Room Air 02/08/17 11:47 Pulse Ox 98 O2 Delivery Room Air Intake and Output 02/07/17 02/07/17 02/08/17 14:59 22:59 06:59 Intake Total 118 ml Balance 118 ml Images MRI brain Findings: There is no evidence of an acute infarct or cytotoxic edema. The ventricles, sulci, and cisterns are within normal limits in size and configuration. There is no significant midline shift, mass effect, or focal abnormal extra-axial fluid collection. There is no significant signal abnormality of the brain parenchyma. There is preservation of the major intracranial flow-voids at the skull base. The cerebellar tonsils are at the lower limits of normal in location. There is no significant abnormality of the pineal gland or pituitary gland. There is 1.2 cm complex mucous retention cyst or polyp of the left maxillary sinus. There is more focal opacification of posterior right ethmoid air cell. There is other mild paranasal sinus mucosal thickening. There is minimal fluid of the left mastoid air cells, right mastoid air cells aerated. There is preserved marrow signal of the clivus. Impression: 1. There is no significant intracranial abnormality. 2. There is mild paranasal sinus mucosal thickening, also complex mucous retention cyst versus polyp of the left maxillary sinus. JR HYMAN MD Feb 08, 2017 12:17
[2017-02-08] MEDS ORDERED: SINCALIDE 2.1 MCG in IV NORMAL SALINE 50ML 30 ML IV ONE (13:00)
--- NOTE | 2017-02-08 15:29 | RAD ---
Radionuclide hepatobiliary scan with gallbladder ejection fraction, 02/08/2017: History: Nausea and vomiting Following IV injection of 5.5 mCi of technetium 99m Choletec there was prompt uptake of the radionuclide from the blood stream by the liver. Activity is present in the bile ducts at 10 minutes and in the gallbladder at 15 minutes. Small bowel activity developed at 25 minutes. Additional imaging of the gallbladder was performed following IV injection of 2.1 mcg of cholecystokinin. There is good gallbladder emptying with the gallbladder ejection fraction calculated at 69%. IMPRESSION: 1. Normal radionuclide hepatobiliary scan. 2. The gallbladder ejection fraction is 69%.
== END 2017-02-08 15:35 | disposition home or self-care (01) ==
LOC: ER 11:13 → 5 SOUTH 15:27
PROVIDERS: ADMIT Internal Medicine; ATTEND Internal Medicine
DX: J20.9 Acute bronchitis, unspecified (principal); J45.901 Unspecified asthma with (acute) exacerbation; G40.909 Epilepsy, unspecified, not intractable, without status epilepticus; F31.9 Bipolar disorder, unspecified; R11.2 Nausea with vomiting, unspecified; E87.6 Hypokalemia; G43.909 Migraine, unspecified, not intractable, without status migrainosus; K21.9 Gastro-esophageal reflux disease without esophagitis; H53.8 Other visual disturbances; R51 Headache; G62.9 Polyneuropathy, unspecified; R07.89 Other chest pain; E66.9 Obesity, unspecified; G54.0 Brachial plexus disorders; Z87.440 Personal history of urinary (tract) infections; Z87.891 Personal history of nicotine dependence; Z82.5 Family history of asthma and other chronic lower respiratory diseases; Z82.49 Family history of ischemic heart disease and other diseases of the circulatory system
CPT/HCPCS: 36415; 70551; 71020; 71275; 76700; 78226; 80048; 80053; 80061; 81025; 84443; 84484; 85025; 85379; 93005; 93306; 94640; 94760; 96365; 96366; 96372; 96375; 99285; A9537; G0378; J1650; J2405; J2805; J7620; J7626; Q9967; 96374; G0379

== ENCOUNTER 2017-09-03 09:13 | Emergency (ER) | payer OTHER ==
[2017-09-03 09:30] LABS: URINE HCG POC HCG NEGATIVE (Negative)
[2017-09-03 09:38] LABS: BILIRUBIN,URINE NEGATIVE (NEG); CLARITY,URINE CLEAR; COLOR,URINE YELLOW; GLUCOSE,URINE NEGATIVE (NEG); NITRITE,URINE NEGATIVE (NEG); PROTEIN,URINE NEGATIVE (NEG-TRACE)
[2017-09-03 09:41] LABS: POC GLUCOSE 83 mg/dL (70-99)
[2017-09-03 10:42] LABS: AMORPHOUS SEDIMENT,UR PRESENT /HPF; BACTERIA,URINE FEW /HPF (0-FEW); RBC,URINE 0 /HPF (0-2); SQUAMOUS EPITHELIAL CELL,UR MOD /LPF
== END 2017-09-03 10:55 | disposition home or self-care (01) ==
LOC: ER 09:13
DX: R42 Dizziness and giddiness (principal); J45.909 Unspecified asthma, uncomplicated; Z88.2 Allergy status to sulfonamides; Z88.1 Allergy status to other antibiotic agents; Z88.8 Allergy status to other drugs, medicaments and biological substances
CPT/HCPCS: 81001; 81025; 82962; 87086; 93005; 99285-25

== ENCOUNTER 2017-10-28 08:15 | Emergency (ER) | payer OTHER ==
[2017-10-28 09:08] LABS: ADD MAN DIFF? NO
[2017-10-28] MEDS: ONDANSETRON PF 4 MG/2 ML VIAL. IV (09:11)
[2017-10-28] MEDS: IV NORMAL SALINE 1000ML BAG 500 ML IV (09:13)
[2017-10-28 09:14] LABS: BASO # 0.1 x10^3/uL (0.0-0.2); BASO % 1 % (0-3); EOS # 0.1 x10^3/uL (0.0-0.7); EOS % 1 % (0-3); HEMATOCRIT 39.2 % (36.0-47.0); HEMOGLOBIN 13.1 g/dL (12.0-15.5); LYMPH % 25 % (24-48); MEAN CORPUSCULAR HEMOGLOBIN 30 pg (25-35); MEAN CORPUSCULAR HGB CONC 33 g/dL (31-37); MEAN CORPUSCULAR VOLUME 90 fL (79-100); MONO # 0.6 x10^3/uL (0.0-1.1); MONO % 5 % (0-9); NEUT # 8.3 x10^3uL (1.8-7.7); NEUT % 69 % (31-73); PLATELET COUNT 304 x10^3/uL (140-400); RED BLOOD COUNT 4.35 x10^6/uL (3.50-5.40); RED CELL DISTRIBUTION WIDTH 13.7 % (11.5-14.5)
[2017-10-28 09:24] LABS: ANION GAP 10 (6-14); BLOOD UREA NITROGEN 15 mg/dL (7-20); CALCIUM 9.7 mg/dL (8.5-10.1); CARBON DIOXIDE 29 mmol/L (21-32); CHLORIDE 104 mmol/L (98-107); CREATININE 0.7 mg/dL (0.6-1.0); GFR 119.7; GLUCOSE 119 mg/dL (70-99); POTASSIUM 3.5 mmol/L (3.5-5.1); SODIUM 143 mmol/L (136-145)
[2017-10-28 09:45] LABS: D-DIMER 0.73 ug/mlFEU (0.00-0.50)
[2017-10-28 10:16] LABS: URINE HCG POC HCG NEGATIVE (Negative)
[2017-10-28 10:25] LABS: BILIRUBIN,URINE NEGATIVE (NEG); CLARITY,URINE CLEAR; COLOR,URINE YELLOW; GLUCOSE,URINE NEGATIVE (NEG); NITRITE,URINE NEGATIVE (NEG); PROTEIN,URINE NEGATIVE (NEG-TRACE)
[2017-10-28 10:53] LABS: BACTERIA,URINE MOD /HPF (0-FEW); RBC,URINE RARE /HPF (0-2); SQUAMOUS EPITHELIAL CELL,UR FEW /LPF
== END 2017-10-28 13:09 | disposition home or self-care (01) ==
LOC: ER 08:15
DX: R07.2 Precordial pain (principal); M25.512 Pain in left shoulder; M79.601 Pain in right arm; R11.2 Nausea with vomiting, unspecified; J45.909 Unspecified asthma, uncomplicated; Z88.2 Allergy status to sulfonamides; Z88.1 Allergy status to other antibiotic agents; Z88.8 Allergy status to other drugs, medicaments and biological substances
CPT/HCPCS: 36415; 71045; 80048; 81001; 81025; 84484; 85025; 85379; 93005; 96361; 96374; 99285-25; J2405; J7030

== ENCOUNTER 2018-02-27 01:16 | Emergency (ER) | payer SELFPAY ==
[~2018-02-27] VITALS: Ht 167.6 cm; Wt 86.2 kg
[~2018-02-27 01:16] MED LIST changes: -KETO120S TP; +KETO120S2 TP; +METO10TA81 PO; +NAPR-695 PO; -NAPR375T3 PO
[2018-02-27 01:32] VITALS: BP 119/79
[2018-02-27] MEDS ORDERED: AMOX500T PO (01:37)
--- NOTE | 2018-02-27 01:41 | PHYS DOC ---
Past Medical History Past Medical History: No Pertinent History Additional Past Medical Histor: THORACIC OUTLET SYNDROME SHOULDER/NECK, NEURAPATHY Past Surgical History: No Surgical History Additional Past Surgical Histo: "bladder surgery"-"lift" Alcohol Use: None Drug Use: None Adult General Chief Complaint Chief Complaint: DENTAL PROBLEM HPI HPI Patient is a 27 year old female presenting with tooth pain. gum pain for the last few days. actually a month or more but worse these last few days taking otc agents with minimal relief. Review of Systems Review of Systems neg for fever Allergies Allergies Allergies Coded Allergies Type Severity Reaction Last Updated Verified duloxetine Allergy Intermediate 02/07/17 Yes sulfamethoxazole Allergy Intermediate 02/07/17 Yes trimethoprim Allergy Intermediate 02/07/17 Yes Physical Exam Physical Exam Constitutional: Well developed, well nourished, no acute distress, non-toxic appearance. []Poor dentition no definite abscess seen. Moist, no oral exudates, nose normal. [] Eyes: PERRLA, EOMI, conjunctiva normal, no discharge. [] Neck: Normal range of motion, no tenderness, supple, no stridor. [] Pulmonary: Normal respiratory effort no increased work of breathing no obvious chest wall trauma Skin: Warm, dry, no erythema, no rash. [] Back: No tenderness, no CVA tenderness. [] Extremities: No tenderness, no cyanosis, no clubbing, ROM intact, no edema. [] Neurologic: Alert and oriented X 3, normal motor function, normal sensory function, no focal deficits noted. [] Psychologic: Affect normal, judgement normal, mood normal. [] Current Patient Data Vital Signs Vital Signs Date Time Temp Pulse Resp B/P (MAP) Pulse Ox O2 Delivery O2 Flow Rate FiO2 02/27/18 01:32 98.4 73 16 119/79 (92) 99 Room Air 98.4 EKG EKG [] Radiology/Procedures Radiology/Procedures [] Course & Med Decision Making Course & Med Decision Making Pertinent Labs and Imaging studies reviewed. (See chart for details) []27-year-old female with dental pain. No obvious infection identified but patient may have occult infection due to symptoms amoxicillin was given advised to follow-up with a dentist as soon as possible given resources Dragon Disclaimer Dragon Disclaimer This electronic medical record was generated, in whole or in part, using a voice recognition dictation system. Departure Departure Impression: Primary Impression: Toothache Disposition: HOME, SELF-CARE Condition: STABLE Patient Instructions: Dental Pain, [id number] Scripts Amoxicillin (AMOXICILLIN) 500 Mg Tablet 1 TAB PO TID, #21 TAB Prov: JANNA WREN MD 02/27/18 JANNA WREN MD Feb 27, 2018 01:41
== END 2018-02-27 01:44 | disposition home or self-care (01) ==
LOC: ER 01:16
DX: K08.89 Other specified disorders of teeth and supporting structures (principal); K00.6 Disturbances in tooth eruption; Z88.2 Allergy status to sulfonamides; Z88.1 Allergy status to other antibiotic agents; Z88.8 Allergy status to other drugs, medicaments and biological substances
CPT/HCPCS: 99283

== ENCOUNTER 2018-04-23 07:36 | Emergency (ER) | payer SELFPAY ==
[~2018-04-23] VITALS: Ht 167.6 cm; Wt 108.9 kg
[~2018-04-23 07:36] MED LIST changes: +AMOX500T PO
[2018-04-23] MEDS ORDERED: DOXY100T PO (08:17)
[2018-04-23] MEDS ORDERED: PROAIR HFA8.5 GM INH (08:17)
--- NOTE | 2018-04-23 08:18 | PHYS DOC ---
Past Medical History Past Medical History: Other Additional Past Medical Histor: THORACIC OUTLET SYNDROME SHOULDER/NECK, NEUROPATHY Past Surgical History: Other Additional Past Surgical Histo: "bladder surgery"-"lift" Additional Information: Quit over 2 years ago. Alcohol Use: None Additional Information: Stopped drinking about 9 mos. ago-only drank occasionally. Drug Use: None Adult General Chief Complaint Chief Complaint: General Complaint HPI HPI Patient is a 27 year old female who presents with sinus congestion and pressure to the left side with intermittent coughing. The patient does have a history of asthma but denies wheezing. She states that her symptoms been ongoing for approximately a month. She states that the pain has traveled around the left side from her ear into her sinuses. She has also had an intermittent headache. She denies fever, nausea or vomiting. Review of Systems Review of Systems Constitutional: Denies fever or chills [] Eyes: Denies change in visual acuity, redness, or eye pain [] HENT: See history of present illness Respiratory: See history of present illness Cardiovascular: No additional information not addressed in HPI [] GI: Denies abdominal pain, nausea, vomiting, bloody stools or diarrhea [] : Denies dysuria or hematuria [] Musculoskeletal: Denies back pain or joint pain [] Integument: Denies rash or skin lesions [] Neurologic: Denies headache, focal weakness or sensory changes [] Endocrine: Denies polyuria or polydipsia [] All other systems were reviewed and found to be within normal limits, except as documented in this note. Allergies Allergies Allergies Coded Allergies Type Severity Reaction Last Updated Verified duloxetine Allergy Intermediate 02/07/17 Yes sulfamethoxazole Allergy Intermediate 02/07/17 Yes trimethoprim Allergy Intermediate 02/07/17 Yes Physical Exam Physical Exam Constitutional: Well developed, well nourished, no acute distress, non-toxic appearance. [] HENT: Normocephalic, atraumatic, bilateral tympanic membranes normal, oropharynx moist, no oral exudates, nares are erythematous bilaterally, left maxillary tenderness upon palpation Eyes: PERRLA, EOMI, conjunctiva normal, no discharge. [] Neck: Normal range of motion, no tenderness, supple, no stridor. [] Cardiovascular:Heart rate regular rhythm, no murmur [] Lungs & Thorax: Bilateral breath sounds clear to auscultation [] Neurologic: Alert and oriented X 3, normal motor function, normal sensory function, no focal deficits noted. [] Psychologic: Affect normal, judgement normal, mood normal. [] Current Patient Data Vital Signs Vital Signs Date Time Temp Pulse Resp B/P (MAP) Pulse Ox O2 Delivery O2 Flow Rate FiO2 04/23/18 07:52 99.1 96 18 147/85 (105) 97 Room Air 99.1 EKG EKG [] Radiology/Procedures Radiology/Procedures [] Course & Med Decision Making Course & Med Decision Making Pertinent Labs and Imaging studies reviewed. (See chart for details) [] Dragon Disclaimer Dragon Disclaimer This electronic medical record was generated, in whole or in part, using a voice recognition dictation system. Departure Departure Impression: Primary Impression: Sinusitis Disposition: 01 HOME, SELF-CARE Condition: STABLE Referrals: NO PCP (PCP) Patient Instructions: Sinusitis Additional Instructions: Medication as prescribed. Increase fluids and rest. You may use over-the- counter cough and cold medication for symptom relief or use a Neti pot. Follow up with your primary care provider in one week if not improving or return to the emergency department if worsening. Scripts Albuterol Sulfate (PROAIR HFA INHALER) 8.5 Gm Hfa.aer.ad 1 PUFF INH PRN Q6HRS PRN for SHORTNESS OF BREATH, #1 INHALER 2 Refills Prov: CARLITOS DURBIN APRN 04/23/18 Doxycycline Hyclate (DOXYCYCLINE HYCLATE) 100 Mg Tablet 1 TAB PO BID for sinusitis, #20 TAB Prov: CARLITOS DURBIN APRN 04/23/18 CARLITOS DURBIN APRN Apr 23, 2018 08:18
[2018-04-23 08:50] VITALS: BP 124/73
== END 2018-04-23 08:50 | disposition home or self-care (01) ==
LOC: ER 07:36
DX: J32.0 Chronic maxillary sinusitis (principal); R05 Cough; Z87.891 Personal history of nicotine dependence; Z88.2 Allergy status to sulfonamides; Z88.1 Allergy status to other antibiotic agents; Z88.8 Allergy status to other drugs, medicaments and biological substances
CPT/HCPCS: 99283

== ENCOUNTER 2018-06-14 13:45 | Emergency (ER) | payer SELFPAY ==
[~2018-06-14] VITALS: Ht 167.6 cm; Wt 81.6 kg
[~2018-06-14 13:45] MED LIST changes: +ALBU2.5V8 INH; +DOXY100T PO; -PROAIR HFA8.5 GM INH
[2018-06-14] MEDS ORDERED: HYDR-3164 PO (14:41)
[2018-06-14] MEDS ORDERED: ONDA4TAB12 PO (14:41)
--- NOTE | 2018-06-14 14:42 | PHYS DOC ---
Past Medical History Past Medical History: Other Additional Past Medical Histor: THORACIC OUTLET SYNDROME SHOULDER/NECK, NEUROPATHY Past Surgical History: Other Additional Past Surgical Histo: "bladder surgery"-"lift" Alcohol Use: None Drug Use: None Adult General Chief Complaint Chief Complaint: DENTAL PROBLEM [facility] Patient is a 27 year old female who presents with right-sided upper and lower dental pain. She states her gums hurt. This is been going on for the last couple weeks. States she's going to comfort until about a year ago but has not gone back. She denies fever but states occasionally she feels nausea. Patient states she is eating and drinking appropriately. Review of Systems Review of Systems Constitutional: Denies fever or chills [] Eyes: Denies change in visual acuity, redness, or eye pain [] HENT: Right upper and lower dental pain. Denies nasal congestion or sore throat [] Respiratory: Denies cough or shortness of breath [] Cardiovascular: No additional information not addressed in HPI [] GI: Denies abdominal pain, nausea, vomiting, bloody stools or diarrhea [] : Denies dysuria or hematuria [] Musculoskeletal: Denies back pain or joint pain [] Integument: Denies rash or skin lesions [] Neurologic: Denies headache, focal weakness or sensory changes [] All other systems were reviewed and found to be within normal limits, except as documented in this note. Allergies Allergies Allergies Coded Allergies Type Severity Reaction Last Updated Verified duloxetine Allergy Intermediate 02/07/17 Yes sulfamethoxazole Allergy Intermediate 02/07/17 Yes trimethoprim Allergy Intermediate 02/07/17 Yes Physical Exam Physical Exam Constitutional: Well developed, well nourished, no acute distress, non-toxic appearance. [] HENT: Normocephalic, atraumatic, bilateral external ears normal, oropharynx moist, no oral exudates, nose normal. There are no oral lesions, no dental caries or broken teeth seen. No dental abscess is seen. No facial swelling, and no signs of infection. [] Eyes: PERRLA, EOMI, conjunctiva normal, no discharge. [] Neck: Normal range of motion, no tenderness, supple, no stridor. [] Cardiovascular:Heart rate regular rhythm, no murmur [] Lungs & Thorax: Bilateral breath sounds clear to auscultation [] Abdomen: Bowel sounds normal, soft, no tenderness, no masses, no pulsatile masses. [] Skin: Warm, dry, no erythema, no rash. [] Back: No tenderness, no CVA tenderness. [] Extremities: No tenderness, no cyanosis, no clubbing, ROM intact, no edema. [] Neurologic: Alert and oriented X 3, normal motor function, normal sensory function, no focal deficits noted. [] Psychologic: Affect normal, judgement normal, mood normal. [] Current Patient Data Vital Signs Vital Signs Date Time Temp Pulse Resp B/P (MAP) Pulse Ox O2 Delivery O2 Flow Rate FiO2 06/14/18 14:32 98.6 70 18 127/81 (96) 98 Room Air 98.6 EKG EKG [] Radiology/Procedures Radiology/Procedures [] Course & Med Decision Making Course & Med Decision Making Patient is a 27 year old female who presents with right-sided upper and lower dental pain. She states her gums hurt. This is been going on for the last couple weeks. States she's going to comfort until about a year ago but has not gone back. She denies fever but states occasionally she feels nausea. Patient states she is eating and drinking appropriately. Upon examination there is no swelling to the face or gumline, there is no redness to the gumline, no swelling to the gumline, afebrile no oral lesions. Vital signs are within normal limits. She rates her pain 8 out of 10. I gave her prescription for pain medication and she is told to follow-up with comfort care on Saturday. Patient can come back if she begins having increased facial swelling or swelling of the gums, bleeding gums, fever, nausea or vomiting. Dragon Disclaimer Dragon Disclaimer This electronic medical record was generated, in whole or in part, using a voice recognition dictation system. Departure Departure Impression: Primary Impression: Pain, dental Disposition: HOME, SELF-CARE Condition: STABLE Referrals: NO PCP (PCP) Patient Instructions: Dental Pain Additional Instructions: FOLLOW UP WITH PRIMARY CARE ON SATURDAY. TAKE MEDICATIONS PRESCRIBED. Scripts Ondansetron (ONDANSETRON ODT) 4 Mg Tab.rapdis 4 MG PO 4-6HRS PRN for NAUSEA/VOMITING, #20 TAB Prov: ALON NGUYEN SUPPLY CHAIN GENERALIST 06/14/18 Hydrocodone/Apap 5-325 (NORCO 5-325 TABLET) 1 Each Tablet 1 TAB PO PRN Q6HRS PRN for PAIN, #15 TAB 0 Refills Prov: ALON NGUYEN APRN 06/14/18 ALON NGUYEN APRN Jun 14, 2018 14:42
== END 2018-06-14 14:50 | disposition home or self-care (01) ==
LOC: ER 13:45
DX: K08.89 Other specified disorders of teeth and supporting structures (principal); Z88.1 Allergy status to other antibiotic agents; Z88.8 Allergy status to other drugs, medicaments and biological substances
CPT/HCPCS: 99283

== ENCOUNTER 2018-12-29 18:28 | Emergency (ER) | payer SELFPAY ==
[~2018-12-29] VITALS: Ht 167.6 cm; Wt 90.7 kg
[~2018-12-29 18:28] MED LIST changes: +HYDR-3164 PO; +ONDA4TAB12 PO
[2018-12-29] MEDS ORDERED: CEPH500C PO (19:10)
--- NOTE | 2018-12-29 19:10 | PHYS DOC ---
Past Medical History Past Medical History: Arrhythmia, Hypertension, Other Additional Past Medical Histor: THORACIC OUTLET SYNDROME SHOULDER/NECK,NEUROPATHY (LEONILA CUEVAS APRN) Past Surgical History: Other Additional Past Surgical Histo: "bladder surgery"-"lift" (LEONILA CUEVAS APRN) Alcohol Use: None Drug Use: None (LEONILA CUEVAS APRN) Adult General Chief Complaint Chief Complaint: INSECT BITE HPI HPI Patient is a 28 year old AA female, accompanied by her family, who presents to the emergency department with complaints of left breast redness, warmth, and tenderness for the last 5 days. She denies any drainage from the site or her nipple. She reports that at first the area was itching and she thought that it was due to a bug bite. She currently denies any itching, fever, cough, shortness of breath, or sore throat. She currently reports the pain is a 6 out of 10 on the pain scale, she has been taking Benadryl and Tylenol with no relief of her symptoms. (LEONILA CUEVAS APRN) Review of Systems Review of Systems Constitutional: Denies fever or chills [] Eyes: Denies change in visual acuity, redness, or eye pain [] HENT: Denies nasal congestion or sore throat [] Respiratory: Denies cough or shortness of breath [] Cardiovascular: No additional information not addressed in HPI [] Integument: see history of present illness Neurologic: Denies headache, focal weakness or sensory changes [] Complete systems were reviewed and found to be within normal limits, except as documented in this note. (LEONILA CUEVAS APRN) Allergies Allergies Allergies Coded Allergies Type Severity Reaction Last Updated Verified duloxetine Allergy Intermediate 02/07/17 Yes sulfamethoxazole Allergy Intermediate 02/07/17 Yes trimethoprim Allergy Intermediate 02/07/17 Yes (JANNA WREN MD) Physical Exam Physical Exam Constitutional: Well developed, well nourished, no acute distress, non-toxic appearance, obese. [] HENT: Normocephalic, atraumatic, bilateral external ears normal, nose normal. [] Eyes: conjunctiva normal, no discharge. [] Neck: Normal range of motion, no stridor. [] Cardiovascular:Heart rate regular rhythm, no murmur [] Lungs & Thorax: Bilateral breath sounds clear to auscultation [] Skin: Warm, dry; erythema and warmth to right breast consistent with cellulitis, no drainage, or abscess noted, patient reports tenderness with palpation of the area Extremities: No cyanosis, ROM intact, no edema. [] Neurologic: Alert and oriented X 3, no focal deficits noted. [] Psychologic: Affect normal, judgement normal, mood normal. [] (LEONILA CUEVAS APRN) Current Patient Data Vital Signs Vital Signs Date Time Temp Pulse Resp B/P (MAP) Pulse Ox O2 Delivery O2 Flow Rate FiO2 12/29/18 19:15 98.4 103 16 139/83 (101) 98 Room Air 98.4 (JANNA WREN MD) EKG EKG [] (LEONILA CUEVAS APRN) Radiology/Procedures Radiology/Procedures [] (LEONILA CUEVAS APRN) Course & Med Decision Making Course & Med Decision Making Pertinent Labs and Imaging studies reviewed. (See chart for details) [] (LEONILA CUEVAS APRN) Course & Med Decision Making Staff Physician Addendum: I was working in the ER during the course of this patient's visit. I was available for consultation as needed, but I was not directly involved in the care of this patient. (JANNA WREN MD) Dragon Disclaimer Dragon Disclaimer This electronic medical record was generated, in whole or in part, using a voice recognition dictation system. (ELONILA CUEVAS APRN) Departure Departure Impression: Primary Impression: Cellulitis of left breast Disposition: 01 HOME, SELF-CARE Condition: STABLE Referrals: UNKNOWN PCP NAME (PCP) Patient Instructions: Cellulitis, [id number] Additional Instructions: Fill the Prescription and use as directed. SHe may take Tylenol or ibuprofen as needed for pain. Follow-up with your primary care doctor if symptoms persist, return to the ER if symptoms worsen. Scripts Cephalexin (CEPHALEXIN) 500 Mg Capsule 500 MG PO QID for 7 Days, #28 CAP 0 Refills Prov: LEONILA CUEVAS APRN 12/29/18 LEONILA CUEVAS APRN Dec 29, 2018 19:10 JANNA WREN MD Dec 29, 2018 21:22
[2018-12-29 19:15] VITALS: BP 139/83
== END 2018-12-29 19:19 | disposition home or self-care (01) ==
LOC: ER 18:28
DX: N61.0 Mastitis without abscess (principal); I10 Essential (primary) hypertension; Z88.1 Allergy status to other antibiotic agents; Z88.2 Allergy status to sulfonamides; Z88.8 Allergy status to other drugs, medicaments and biological substances
CPT/HCPCS: 99283

== ENCOUNTER 2019-01-11 13:17 | Emergency (ER) | payer SELFPAY ==
[~2019-01-11] VITALS: Ht 167.6 cm; Wt 90.7 kg
[~2019-01-11 13:17] MED LIST changes: +CEPH500C PO
[2019-01-11 13:50] VITALS: BP 148/104
[2019-01-11] MEDS ORDERED: IBUP-1007 PO (15:48)
[2019-01-11] MEDS ORDERED: METH4TAB2 PO (15:48)
[2019-01-11] MEDS ORDERED: FLUC150T PO (15:48)
--- NOTE | 2019-01-11 15:49 | PHYS DOC ---
Past Medical History Past Medical History: Arrhythmia, Hypertension, Other Additional Past Medical Histor: THORACIC OUTLET SYNDROME SHOULDER/NECK,NEUROPATHY Past Surgical History: Other Additional Past Surgical Histo: "bladder surgery"-"lift" Alcohol Use: None Drug Use: None Adult General Chief Complaint Chief Complaint: VAGINAL PROBLEM HPI HPI Patient is a 28 year old female who presents with was on Keflex for a week but has been off of it for the last 2 days since that she is having vaginal itching with irritation. Patient denies any sexually transmitted disease concerns or vaginal discharge. Patient also has a history of thoracic outlet syndrome with neuropathy in the shoulder and neck and is on gabapentin. Patient states that she is having neuropathy pain increase that is along the ulnar side of her arm it starts in the left trapezius and radiates down the ulnar side of the arm into her ring finger and fifth finger. Patient states that at times it will shoot over into the left chest. Patient states the gabapentin is working but she has n't seen her primary care in quite some time. Patient is told that she needs follow-up with her primary care because her gabapentin might need to be increased. Review of Systems Review of Systems Constitutional: Denies fever or chills [] Eyes: Denies change in visual acuity, redness, or eye pain [] HENT: Denies nasal congestion or sore throat [] Respiratory: Denies cough or shortness of breath [] Cardiovascular: No additional information not addressed in HPI [] GI: Denies abdominal pain, nausea, vomiting, bloody stools or diarrhea [] : vaginal itching. Denies dysuria or hematuria [] Musculoskeletal: Denies back pain or joint pain [] Integument: Denies rash or skin lesions [] Neurologic: Left arm neuropathy pain. Denies headache, focal weakness or sensory changes [] Endocrine: Denies polyuria or polydipsia [] All other systems were reviewed and found to be within normal limits, except as documented in this note. Allergies Allergies Allergies Coded Allergies Type Severity Reaction Last Updated Verified duloxetine Allergy Intermediate 02/07/17 Yes sulfamethoxazole Allergy Intermediate 02/07/17 Yes trimethoprim Allergy Intermediate 02/07/17 Yes Physical Exam Physical Exam Constitutional: Well developed, well nourished, no acute distress, non-toxic ap pearance. [] HENT: Normocephalic, atraumatic, bilateral external ears normal, oropharynx moist, no oral exudates, nose normal. [] Eyes: PERRLA, EOMI, conjunctiva normal, no discharge. [] Neck: Normal range of motion, no tenderness, supple, no stridor. [] Cardiovascular:Heart rate regular rhythm, no murmur [] Lungs & Thorax: Bilateral breath sounds clear to auscultation [] Abdomen: Bowel sounds normal, soft, no tenderness, no masses, no pulsatile masses. [] Skin: Vaginal irritation and white discharge. Warm, dry, no erythema, no rash. [] Back: No tenderness, no CVA tenderness. [] Extremities: No tenderness, no cyanosis, no clubbing, ROM intact, no edema. [] Neurologic: Alert and oriented X 3, normal motor function, normal sensory function, no focal deficits noted. [] Psychologic: Affect normal, judgement normal, mood normal. [] Current Patient Data Vital Signs Vital Signs Date Time Temp Pulse Resp B/P (MAP) Pulse Ox O2 Delivery O2 Flow Rate FiO2 01/11/19 13:50 98.7 93 17 148/104 (119) 97 Room Air 98.7 Lab Values Laboratory Tests Test 01/11/19 14:01 POC Urine HCG, Qualitative Hcg negative (Negative) EKG EKG [] Radiology/Procedures Radiology/Procedures [] Course & Med Decision Making Course & Med Decision Making Patient is a 28 year old female who presents with was on Keflex for a week but has been off of it for the last 2 days since that she is having vaginal itching with irritation. Patient denies any sexually transmitted disease concerns or vaginal discharge. Patient also has a history of thoracic outlet syndrome with neuropathy in the shoulder and neck and is on gabapentin. Patient states that she is having neuropathy pain increase that is along the ulnar side of her arm it starts in the left trapezius and radiates down the ulnar side of the arm into her ring finger and fifth finger. Patient states that at times it will shoot over into the left chest. Patient states the gabapentin is working but she hasn't seen her primary care in quite some time. Patient is told that she needs follow-up with her primary care because her gabapentin might need to be increased. Patient denies shortness of air, chest pain, dizziness, recent illness, fever, cough, injury to left arm, abdominal pain, vaginal discharge, sexual transmitted disease concerns, abnormal vaginal bleeding, nausea, vomiting, diarrhea. Patient has no extremity swelling. Skin is pink warm and dry. Bilateral radial pulses are strong and present. Cap refill less than 3 seconds. No tenderness to palpation of the left arm or chest. Patient does have slight tenderness to palpation in the left trapezius muscle. Patient can rotate her neck with full range of motion. Alert and oriented. Speaks in full clear sentences. Vital signs within normal limits. Lungs are clear patient lobes. See vaginal exam below. Patient refused a full pelvic exam and states she only wants me to take a look at vaginal region due to itching. Patient is treated with Diflucan, Medrol dose pack and told to take Ibuprofen and follow up with her PCP concerning increasing neuropathy pain as she may need a increase in her gabapentin. Pelvic Exam: Sr. Vendor Management Associate present Abdomen: Nontender External Genitalia: Normal Skin, No lesions, redness irritation, white discharge. Dragon Disclaimer Dragon Disclaimer This electronic medical record was generated, in whole or in part, using a voice recognition dictation system. Departure Departure Impression: Primary Impression: Yeast infection Additional Impression: Neuropathy Disposition: 01 HOME, SELF-CARE Condition: STABLE Referrals: UNKNOWN PCP NAME (PCP) Patient Instructions: Candidal Vulvovaginitis, [id number], Pain, Neuropathic Additional Instructions: Call your primary care physician. Continue taking gabapentin. Take medication as prescribed. Scripts Ibuprofen (IBUPROFEN) 600 Mg Tablet 600 MG PO PRN Q6HRS PRN for INFLAMMATION, #20 TAB Prov: ALON NGUYEN APRN 01/11/19 Methylprednisolone (MEDROL) 4 Mg Tab.ds.pk 1 PKG PO UD, #1 PKG Prov: ALON NGUYEN APRN 01/11/19 Fluconazole (DIFLUCAN) 150 Mg Tablet 1 TAB PO ONCE, #1 TAB 1 Refill Prov: ALON NGUYEN APRN 01/11/19 Problem Qualifiers ALON NGUYEN APRN Jan 11, 2019 15:49
== END 2019-01-11 15:50 | disposition home or self-care (01) ==
LOC: ER 13:17
DX: B37.3 Candidiasis of vulva and vagina (principal); G62.9 Polyneuropathy, unspecified; M79.602 Pain in left arm; I10 Essential (primary) hypertension; Z88.2 Allergy status to sulfonamides; Z88.1 Allergy status to other antibiotic agents; Z88.8 Allergy status to other drugs, medicaments and biological substances
CPT/HCPCS: 81025; 99283

== ENCOUNTER 2019-10-18 09:52 | Emergency (ER) | payer MEDICAID, OTHER ==
[~2019-10-18] VITALS: Ht 167.6 cm; Wt 95.0 kg
[~2019-10-18 09:52] MED LIST changes: +FLUC150T PO; +IBUP-1007 PO; -MECL12.52 PO; +MECL12.573 PO; +METH4TAB2 PO
[2019-10-18 09:55] VITALS: BP 136/97
--- NOTE | 2019-10-18 10:52 | RAD ---
PROCEDURE: FOOT LEFT 3V STUDY DATE: 10/18/2019 CLINICAL INDICATION / HISTORY: Left foot heel pain for 4 days.. TECHNIQUE: AP, lateral and oblique views of the left foot. COMPARISON: None FINDINGS: No fracture or dislocation is identified. The bone density is normal. The joint space widths are maintained, and there are no erosions to suggest an inflammatory arthropathy. No soft tissue abnormality is seen. IMPRESSION: No acute osseous abnormality. Electronically signed by: Brandon Simms MD (10/18/2019 10:49 AM) [id number]
--- NOTE | 2019-10-18 11:03 | PHYS DOC ---
Past Medical History Past Medical History: Arrhythmia, Hypertension, Other Additional Past Medical Histor: THORACIC OUTLET SYNDROME SHOULDER/NECK,NEUROPATHY Past Surgical History: Other Additional Past Surgical Histo: "bladder surgery"-"lift" Smoking Status: Former Smoker Alcohol Use: None Drug Use: None General Adult EDM: Chief Complaint: FOOT INJURY PAIN HPI: HPI: Patient is a 29 year old female who presented to ER today for evaluation of left foot pain that been going on for several days. Patient denies any injury. Patient, pain when she walks. Patient denies any injury. Patient denies any fever. Patient has history of neuropathy in her extremity. She is on Neurontin. Patient denies any leg swelling, no trouble breathing or chest pain. Patient denies any history of blood clot disorder. Review of Systems: Review of Systems: Constitutional: Denies fever or chills. [] Eyes: Denies change in visual acuity. [] HENT: Denies nasal congestion or sore throat. [] Respiratory: Denies cough or shortness of breath. [] Cardiovascular: Denies chest pain or edema. [] GI: Denies abdominal pain, nausea, vomiting, bloody stools or diarrhea. [] : Denies dysuria. [] Musculoskeletal: Denies back pain or joint pain. Positive for left foot pain Integument: Denies rash. [] Neurologic: Denies headache, focal weakness or sensory changes. [] Endocrine: Denies polyuria or polydipsia. [] Lymphatic: Denies swollen glands. [] Psychiatric: Denies depression or anxiety. [] Heart Score: Risk Factors: Risk Factors: DM, Current or recent (<one month) smoker, HTN, HLP, family history of CAD, obesity. Risk Scores: Score 0 - 3: 2.5% MACE over next 6 weeks - Discharge Home Score 4 - 6: 20.3% MACE over next 6 weeks - Admit for Clinical Observation Score 7 - 10: 72.7% MACE over next 6 weeks - Early Invasive Strategies Allergies: Allergies: Allergies Coded Allergies Type Severity Reaction Last Updated Verified duloxetine Allergy Intermediate 02/07/17 Yes sulfamethoxazole Allergy Intermediate 02/07/17 Yes trimethoprim Allergy Intermediate 02/07/17 Yes Physical Exam: PE: Constitutional: Well developed, well nourished, no acute distress, non-toxic appearance. [] HENT: Normocephalic, atraumatic, bilateral external ears normal, oropharynx moist, no oral exudates, nose normal. [] Eyes: PERRLA, EOMI, conjunctiva normal, no discharge. [] Neck: Normal range of motion, no tenderness, supple, no stridor. [] Cardiovascular:Heart rate regular rhythm, no murmur [] Lungs & Thorax: Bilateral breath sounds clear to auscultation [] Abdomen: Bowel sounds normal, soft, no tenderness, no masses, no pulsatile masses. [] Skin: Warm, dry, no erythema, no rash. [] Back: No tenderness, no CVA tenderness. [] Extremities: No calf tenderness, no calf swelling compared to the left side, left foot is tender on the dorsal surface., There is no redness or erythema. Neurologic: Alert and oriented X 3, normal motor function, normal sensory function, no focal deficits noted. [] Psychologic: Affect normal, judgement normal, mood normal. [] Current Patient Data: Vital Signs: Vital Signs Date Time Temp Pulse Resp B/P (MAP) Pulse Ox O2 Delivery O2 Flow Rate FiO2 10/18/19 09:55 98.4 91 16 136/97 (110) 98 Room Air 98.4 EKG: EKG: [] Radiology/Procedures: Radiology/Procedures: [][facility] [address] [place], [place] [id number] IMAGING REPORT Signed PATIENT: PERCY BAIRD ACCOUNT: [id number] : 1990 LOCATION: ER AGE: 29 SEX: F EXAM STATUS: REG ER ORD. PHYSICIAN: NURIA HERNANDEZ DO REASON: LEFT FOOT HEAL PAIN FOR 4 DAYS PROCEDURE: FOOT LEFT 3V PROCEDURE: FOOT LEFT 3V STUDY DATE: 10/18/2019 CLINICAL INDICATION / HISTORY: Left foot heel pain for 4 days.. TECHNIQUE: AP, lateral and oblique views of the left foot. COMPARISON: None FINDINGS: No fracture or dislocation is identified. The bone density is normal. The joint space widths are maintained, and there are no erosions to suggest an inflammatory arthropathy. No soft tissue abnormality is seen. IMPRESSION: No acute osseous abnormality. Electronically signed by: Jenaro Simms MD (10/18/2019 10:49 AM) [id number] DICTATED and SIGNED BY: JENARO SIMMS MD DATE: 10/18/19 1049 Course & Med Decision Making: Course & Med Decision Making Pertinent Labs and Imaging studies reviewed. (See chart for details) [] Dragon Disclaimer: Dragon Disclaimer: This electronic medical record was generated, in whole or in part, using a voice recognition dictation system. Departure Departure Impression: Primary Impression: Foot pain, left Disposition: 01 HOME, SELF-CARE Condition: STABLE Referrals: UNKNOWN PCP NAME (PCP) follow up with your doctor next week as needed Patient Instructions: Pain, Neuropathic NURIA HERNANDEZ DO October 18, 2019 11:03
== END 2019-10-18 11:30 | disposition home or self-care (01) ==
LOC: ER 09:52
DX: M79.672 Pain in left foot (principal); I10 Essential (primary) hypertension; Z87.891 Personal history of nicotine dependence; Z88.1 Allergy status to other antibiotic agents; Z88.2 Allergy status to sulfonamides; Z88.8 Allergy status to other drugs, medicaments and biological substances
CPT/HCPCS: 73630; 99283

== ENCOUNTER 2021-07-02 22:58 | Emergency (ER) | payer OTHER ==
[~2021-07-02] VITALS: Ht 167.6 cm; Wt 104.5 kg
[~2021-07-02 22:58] MED LIST changes: -KETO120S2 TP; +KETO120S4 TP; -MECL12.573 PO; +MECL12.582 PO
--- NOTE | 2021-07-02 23:55 | PHYS DOC ---
Past Medical History Past Medical History: Arrhythmia, Hypertension, Other Additional Past Medical Histor: THORACIC OUTLET SYNDROME SHOULDER/NECK,NEUROPATHY Past Surgical History: Other Additional Past Surgical Histo: "bladder surgery"-"lift" Smoking Status: Never Smoker Alcohol Use: None Drug Use: None General Adult EDM: Chief Complaint: ALLERGIC REACTION HPI: HPI: Patient is a 30 year old female with history of chronic neuropathy who presents with a burning sensation all over after taking the COVID-vaccine. Had her first dose of Pfizer on 06/30. States that approximately 30 minutes afterwards started having a burning sensation. It feels similar to her neuropathy, but has been in areas that are unusual for neuropathy. States that it did start typically with her hands and feet, but then started to have a burning sensation around her vulva, and then around her breast, head, neck, and chest. This is improved with Tylenol, but comes back shortly after dosing. Has not tried other medications. Has been on her normal dose of gabapentin for neuropathy 900 mg 3 times daily. She denies any vaginal discharge or bleeding. No dysuria, urgency, or freq uency. No lower back or flank pain. No fevers or chills. She has had a cough since prior to the COVID-vaccine. States that she was exposed to COVID at the end of May, and she had a test that was negative on 06/19 but is continued to have symptoms. Review of Systems: Review of Systems: Constitutional: Denies fever or chills. [] Eyes: Denies change in visual acuity. [] HENT: Denies nasal congestion or sore throat. [] Respiratory: Reports cough. Denies shortness of breath. [] Cardiovascular: Denies chest pain or edema. [] GI: Denies abdominal pain, nausea, vomiting, bloody stools or diarrhea. [] : Denies dysuria, urgency, frequency. Denies vaginal bleeding or discharge.. [] Musculoskeletal: Denies back pain or joint pain. [] Integument: Denies rash. [] Neurologic: Reports burning neuropathic type pain diffusely denies headache, focal weakness or sensory changes. [] Heart Score: C/O Chest Pain: No Risk Factors: Risk Factors: DM, Current or recent (<one month) smoker, HTN, HLP, family history of CAD, obesity. Risk Scores: Score 0 - 3: 2.5% MACE over next 6 weeks - Discharge Home Score 4 - 6: 20.3% MACE over next 6 weeks - Admit for Clinical Observation Score 7 - 10: 72.7% MACE over next 6 weeks - Early Invasive Strategies Allergies: Allergies: Allergies Coded Allergies Type Severity Reaction Last Updated Verified duloxetine Allergy Intermediate 02/07/17 Yes sulfamethoxazole Allergy Intermediate 02/07/17 Yes trimethoprim Allergy Intermediate 02/07/17 Yes Physical Exam: PE: Constitutional: Well developed, well nourished, no acute distress, non-toxic appearance. [] Neck: Normal range of motion, no tenderness, supple, no stridor. [] Cardiovascular:Heart rate regular rhythm, no murmur [] Lungs & Thorax: Occasional cough. Bilateral breath sounds clear to auscultation [] Abdomen: Bowel sounds normal, soft, no tenderness, no masses, no pulsatile ma sses. [] Skin: Warm, dry, no erythema, no rash. [] Back: No tenderness, no CVA tenderness. [] Extremities: No tenderness, no cyanosis, no clubbing, ROM intact, no edema. [] Neurologic: Alert and oriented X 3, normal motor function, normal sensory function, no focal deficits noted. [] Psychologic: Affect normal, judgement normal, mood normal. [] EKG: EKG: Sinus rhythm. Rate 92. Normal axis. Normal intervals. No acute ST segment changes. Q-wave deflection in lead III, but not seen in contiguous leads. No pathologic T wave inversion. [] Radiology/Procedures: Radiology/Procedures: [] Impression: [facility] [address] [place], [place] [id number] IMAGING REPORT Signed PATIENT: PERCY BAIRD ACCOUNT: [id number] : 1990 LOCATION: ER AGE: 30 SEX: F EXAM STATUS: REG ER ORD. PHYSICIAN: BYRON LEYVA MD REASON: BURNING SENSATION PROCEDURE: CHEST AP ONLY Single view chest dated 07/03/2021 1:40 AM: COMPARISON: 10/28/2017 Clinical Indication: Burning sensation. Findings: Single upright portable exam of the chest was performed. Study is limited due to low lung volumes. There is elevation of right hemidiaphragm. Heart and mediastinal contours are stable. Lungs are grossly clear. No pleural effusion. N o pneumothorax. IMPRESSION: 1. Limited exam. No apparent acute abnormality. Electronically signed by: Miller Dudley MD (07/03/2021 1:41 AM) [facility] [place] DICTATED and SIGNED BY: MILLER DUDLEY MD DATE: 07/03/21 [id number] 0 Course & Med Decision Making: Course & Med Decision Making Pertinent Labs and Imaging studies reviewed. (See chart for details) Patient 30-year-old female presents with diffuse burning type sensation that she relates to her neuropathic pain after receiving a first dose of Pfizer COVID vaccination on 06/30. On arrival is afebrile, hemodynamically stable, well-appearing on exam. There is no skin changes/rash, swelling, or edema. No outward evidence of a allergic type I reaction. No wheezing. She has had cough and congestion since before her vaccination after COVID exposure, so we will repeat swab. Given complaints of burning chest pain, which sounds more neuropathic than cardiac or thoracic we will obtain a chest x-ray and EKG. If reassuring feel that she can be discharged safely with continued Tylenol, ibuprofen for symptomatic management as well as for long-term gabapentin. Dragon Disclaimer: Dragpk Disclaimer: This electronic medical record was generated, in whole or in part, using a voice recognition dictation system. Departure Departure Impression: Primary Impression: Burning pain Additional Impression: Vaccine reaction Disposition: HOME / SELF CARE / HOMELESS Condition: STABLE Referrals: UNKNOWN PCP NAME (PCP) Additional Instructions: For pain tylenol and ibuprofen are best used on a schedule. Please alternate between the two. -Tylenol 1000 mg every 6 hours (do not exceed 4000 mg in one day) -Ibuprofen 400 mg every 6 hours. Take with food. Do not take for more than 1 week. If your symptoms persist please follow-up with your primary care doctor. If your symptoms worsen you experience severe chest pain, shortness of breath, or other new/concerning symptoms you can always return to the emergency department for reevaluation. BYRON LEYVA MD Jul 02, 2021 23:55
[2021-07-03 00:42] LABS: INFLUENZA A PATIENT NEGATIVE (NEGATIVE); INFLUENZA B PATIENT NEGATIVE (NEGATIVE)
--- NOTE | 2021-07-03 01:44 | RAD ---
Single view chest dated 07/03/2021 1:40 AM: COMPARISON: 10/28/2017 Clinical Indication: Burning sensation. Findings: Single upright portable exam of the chest was performed. Study is limited due to low lung volumes. Th ere is elevation of right hemidiaphragm. Heart and mediastinal contours are stable. Lungs are grossly clear. No pleural effusion. No pneumothorax. IMPRESSION: 1. Limited exam. No apparent acute abnormality. Electronically signed by: Miller Dudley MD (07/03/2021 1:41 AM) STAN
--- NOTE | 2021-07-03 10:19 | EKG ---
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
== END 2021-07-03 02:50 | disposition home or self-care (01) ==
LOC: ER 22:58
DX: R20.8 Other disturbances of skin sensation (principal); T50.B95A Adverse effect of other viral vaccines, initial encounter; G62.89 Other specified polyneuropathies; I10 Essential (primary) hypertension; Z20.822 Contact with and (suspected) exposure to COVID-19; Z88.2 Allergy status to sulfonamides; Z88.1 Allergy status to other antibiotic agents; Z88.8 Allergy status to other drugs, medicaments and biological substances; Y92.89 Other specified places as the place of occurrence of the external cause
CPT/HCPCS: 71045; 87428; 93005; 99285; U0003; U0005